=== PATIENT | female | born 1960 | race Caucasian/White ===

== ENCOUNTER 2019-12-02 07:26 | Outpatient (CLI) | payer OTHER, SELFPAY ==
[2019-12-02 07:46] LABS: Hematocrit 38.5 % (37.0-47.0); Hemoglobin 12.4 g/dL (12.0-15.0); Mean Corpuscular HGB Conc 32.2 g/dl (32-36); Mean Corpuscular Hemoglobin 29.5 pg (26-34); Mean Corpuscular Volume 91.4 fl (80-100); Mean Platelet Volume 8.9 fl (7.4-10.4); Platelet Count Result 362 k/mm3 (150-375); Red Blood Count 4.21 M/mm3 (4.2-5.4); White Blood Count 8.2 K/mm3 (4.5-10.0)
[2019-12-02 07:59] LABS: Alanine Aminotransferase 26 U/L (4-35); Albumin Level 4.3 g/dL (3.5-5.1); Alkaline Phosphatase 93 U/L (38-126); Aspartate Amino Transferase 27 U/L (14-36); Bilirubin,Total 0.3 mg/dL (0.2-1.3); Blood Urea Nitrogen 32 mg/dL (7-17); Calcium 9.2 mg/dL (8.4-10.2); Carbon Dioxide 28 mmol/L (22-30); Chloride 102 mmol/L (98-107); Cholesterol 244 mg/dL (0-200); Estimated Glomerular Filt Rate > 60; Glucose 108 mg/dL (65-105); HDL Direct 35 mg/dL; Potassium 4.9 mmol/L (3.4-5.0); Sodium 139 mmol/L (137-145); Triglycerides 239 mg/dL (<150)
[2019-12-02 08:01] LABS: Rheumatoid Factor < 12.0 IU/ML (<12)
[2019-12-02 08:10] LABS: LDL Cholesterol Direct 135 mg/dL
[2019-12-02 08:27] LABS: Erythrocyte Sedimentation Rate 37 mm/hr (0-20)
== END 2019-12-02 07:27 | disposition home or self-care (01) ==
PROVIDERS: PCP Internal Medicine; Visit Provider Internal Medicine
DX: M79.10 Myalgia, unspecified site (principal); R53.83 Other fatigue; I10 Essential (primary) hypertension; E78.00 Pure hypercholesterolemia, unspecified
CPT/HCPCS: 36415; 80053; 80061; 84443; 85027; 85652; 86038; 86039; 86430

== ENCOUNTER 2020-01-28 15:03 | Outpatient (CLI) | payer OTHER, SELFPAY ==
--- NOTE | ~2020-01-28 | MM_ITS ---
EXAMINATION: MM screening chele BI w alayna HISTORY: Screening mammogram TECHNIQUE: Craniocaudal and mediolateral oblique 3-D tomosynthesis images were obtained and synthetic 2-D images were generated. CAD analysis was submitted and interpreted. COMPARISON: 11/22/2018, 10/30/2017, 09/08/2016 bilateral digital screening mammogram examinations BREAST PARENCHYMAL COMPOSITION: There are scattered areas of fibroglandular density. FINDINGS: There are numerous bilateral punctate benign calcifications. There is no evidence of suspic ious mass, calcification, or architectural distortion to suggest malignancy in either breast. There h as been no suspicious interval change. IMPRESSION: 1. No mammographic evidence of malignancy. 2. Recommend routine screening mammography in one year. BI-RADS Category 2: Benign finding(s) Reviewed, dictated and finalized at location A.
== END 2020-01-28 15:04 | disposition home or self-care (01) ==
LOC: ANHIMG 15:05
PROVIDERS: PCP Internal Medicine; Visit Provider Obstetrics & Gynecology
DX: Z12.31 Encounter for screening mammogram for malignant neoplasm of breast (principal)
CPT/HCPCS: 77063; 77067

== ENCOUNTER 2020-02-12 07:06 | Outpatient (CLI) | payer OTHER, SELFPAY ==
[2020-02-12 07:47] LABS: Basophils Absolute Auto 0.1 K/mm3 (0.0-0.1); Basophils Percent Auto 0.8 % (0.2-1.2); Eosinophils Absolute Auto 0.2 K/mm3 (0-0.3); Eosinophils Percent Auto 2.7 % (0-4.4); Hematocrit 38.2 % (37.0-47.0); Hemoglobin 12.4 g/dL (12.0-15.0); Immature Granulocyte Absolute 0.02 K/mm3 (0.00-0.031); Immature Granulocyte Percent A 0.2 % (0-0.5); Lymphocytes Absolute Auto 2.66 K/mm3 (0.9-3.2); Lymphocytes Percent Auto 30.5 % (18.3-44.2); Mean Corpuscular HGB Conc 32.5 g/dl (32-36); Mean Corpuscular Hemoglobin 30.2 pg (26-34); Mean Corpuscular Volume 92.9 fl (80-100); Mean Platelet Volume 9.3 fl (7.4-10.4); Monocytes Absolute Auto 0.7 K/mm3 (0.1-0.6); Monocytes Percent Auto 8.1 % (2.6-8.5); Neutrophils Percent Auto 57.7 % (45.5-73.1); Platelet Count Result 398 k/mm3 (150-375); Red Blood Count 4.11 M/mm3 (4.2-5.4); Red Cell Distribution Width 13.9 % (11.5-14.5); White Blood Count 8.7 K/mm3 (4.5-10.0)
[2020-02-12 07:59] LABS: Alanine Aminotransferase 34 U/L (4-35); Albumin Level 4.5 g/dL (3.5-5.1); Alkaline Phosphatase 77 U/L (38-126); Anion Gap 11 mmol/L (8-16); Aspartate Amino Transferase 30 U/L (14-36); Bilirubin,Total 0.3 mg/dL (0.2-1.3); Blood Urea Nitrogen 23 mg/dL (7-17); Calcium 9.5 mg/dL (8.4-10.2); Carbon Dioxide 27 mmol/L (22-30); Chloride 103 mmol/L (98-107); Cholesterol 224 mg/dL (0-200); Estimated Glomerular Filt Rate > 60; Glucose 106 mg/dL (65-105); HDL Direct 33 mg/dL; Potassium 4.7 mmol/L (3.4-5.0); Sodium 141 mmol/L (137-145); Triglycerides 236 mg/dL (<150)
[2020-02-12 08:10] LABS: LDL Cholesterol Direct 121 mg/dL
== END 2020-02-12 07:07 | disposition home or self-care (01) ==
PROVIDERS: PCP Internal Medicine; Visit Provider Internal Medicine
DX: R53.83 Other fatigue (principal); I10 Essential (primary) hypertension; E78.00 Pure hypercholesterolemia, unspecified
CPT/HCPCS: 36415; 80053; 80061; 84443; 85025

== ENCOUNTER → 2020-08-27 01:30 | Outpatient (CLI) | payer OTHER, SELFPAY ==
[2020-08-27 19:39] LABS: SARS-CoV-2 RNA PCR Negative
== END ==
PROVIDERS: PCP Internal Medicine; Visit Provider Internal Medicine Gastroenterology
DX: Z01.812 Encounter for preprocedural laboratory examination (principal); Z20.822 Contact with and (suspected) exposure to COVID-19
CPT/HCPCS: C9803; U0003; U0005

== ENCOUNTER 2020-08-30 01:03 | Day surgery (SDC) | payer OTHER, SELFPAY ==
[2020-08-17 13:56] VITALS: BMI 34.7
[2020-08-30] MEDS: LACTATED RINGERS 1,000 ML 150 ML IV CONT (06:35)
[2020-08-30 06:38] VITALS: BP 149/78; PULSE 73; RESP 18; TEMP 36.2; O2SAT 99; BMI 35.0
--- NOTE | 2020-08-30 07:15 | P.PNAN_ITS ---
Anes - Initial Pre Proc Eval Procedure: Operation Date: 08/30/20 07:30 Proposed Procedures p Screening Colonoscopy - Andrea Fraga MD Date/Time: 08/30/20 07:15 Surgeon: Andrea Fraga MD Pre Op Diagnosis: Hx Of Colon Polyps, Screening Patient Data Age: 60 Gender: F Height: 5 ft 2 in Weight: 86.9 kg Last Vital Signs Temp 97.2 F L 08/30/20 06:38 Pulse 73 08/30/20 06:38 Resp 18 08/30/20 06:38 BP 149/78 H 08/30/20 06:38 Pulse Ox 99 08/30/20 06:38 Allergies Allergy/AdvReac Type Severity Reaction Status Date / Time Sulfa (Sulfonamide Allergy Mild Hives Verified 08/30/20 06:36 Antibiotics) Home Medications Medication Instructions Recorded Confirmed Type aspirin 81 mg tablet,delayed 81 mg PO DAILY 04/21/19 08/30/20 History release multivitamin 1 tablet PO DAILY 04/21/19 08/30/20 History atenolol 100 mg tablet 100 mg PO DAILY #90 tablet 02/08/20 08/30/20 Rx lisinopril 40 mg tablet 40 mg PO DAILY #90 tablet 05/02/20 08/30/20 Rx amlodipine 5 mg tablet 5 mg PO DAILY #90 tablet 06/23/20 08/30/20 Rx montelukast 10 mg tablet 10 mg PO DAILY #90 tablet 06/23/20 08/30/20 Rx sodium,potassium,mag sulfates 17.5 See Rx Instructions PO .COMPLEX 07/02/20 0 08/30/20 Rx gram-3.13 gram-1.6 gram oral soln #354 ml diclofenac sodium 75 mg 75 mg PO BID #180 tablet 07/29/20 08/30/20 Rx tablet,delayed release loratadine [Allergy Relief 10 mg PO DAILY 08/17/20 08/30/20 History (loratadine)] Patient hx anesthesia problems: none Family hx anesthesia problems: none PMFSH Past Medical History Medical History (Updated 08/30/20 @ 07:14 by Khoi De Dios MD) Essential (primary) hypertension Hypercholesterolemia Family History Family History Mother Patient's mother is Father Patient's father is Other Diabetes mellitus Family history of cardiovascular disease Hypertension Social History Social History Smoking packs per day: 1 Smoking cigarettes per day: 20.0 Years smoked: 20 Smoking pack-years: 20.00 Smoking status: Former smoker Tobacco type: cigarettes Second hand tobacco smoke exposure: No Smoking end date: 05/14/06 Alcohol intake: current Substance use type: does not use Living arrangements: with family Gender identity (if verbalized by the patient): Female Spiritual care concerns: No Anes - Eval Final PreProcedure Day of Procedure 08/30/20 07:15 Patient weight: obese Heart: regular rate and rhythm Lungs: clear to auscultation Airway: Mallampati scale class II Neurological: alert and oriented Last oral intake: >/= 8 hours ASA classification: III Emergent: no Anesthetic plan: proceed Anesthesia type and monitoring: general GIVS and standard monitoring Informed Consent: The patient's anesthetic plan and its attendant risks and benefits were discussed with the patient/family/POA. Questions were solicited and answers provided to the satisfaction of the patient/family/POA.
--- NOTE | 2020-08-30 07:34 | PM.HPGS ---
History of Present Illness History of Present Illness Consent: Risks, benefits, and alternatives have been discussed and questions answered. Patient agrees to proceed with procedure. Chief complaint: Hx Of Colon Polyps, Screening Narrative: Olga Elias is a 60 year old female with colon polyps in 2016 Review of Systems Constitutional: Constitutional: Denies headache(s) and Denies weakness Eyes: Eyes: Denies blurry vision ENT: Reports Normal hearing present, Denies headache(s) and Denies neck pain Cardiovascular: Cardiovascular: Denies chest pain and Denies dyspnea Respiratory: Respiratory: Denies dyspnea Gastrointestinal: Gastrointestinal: Reports no additional gastrointestinal complaints Genitourinary: Genitourinary: Denies dysuria Musculoskeletal: Musculoskeletal: Denies neck pain Integumentary/Breasts: Skin/Breast: Denies dry skin Neurologic: Reports Normal hearing present, Denies headache(s) and Denies weakness Psychiatric: Psychiatric: Denies anxiety Endocrine: Endocrine: Denies change in body appearance Hematologic/Lymphatic: Hematologic/Lymphatic: Denies easy bleeding Allergic/Immunologic: Allergic/Immunologic: Denies urticaria PMFSH Past Medical History Medical History (Updated 08/30/20 @ 07:34 by Andrea Fraga MD) Adenomatous colon polyp Essential (primary) hypertension Hypercholesterolemia Family History Family History Mother Patient's mother is Father Patient's father is Other Diabetes mellitus Family history of cardiovascular disease Hypertension Social History Social History Smoking packs per day: 1 Smoking cigarettes per day: 20.0 Years smoked: 20 Smoking pack-years: 20.00 Smoking status: Former smoker Tobacco type: cigarettes Second hand tobacco smoke exposure: No Smoking end date: 05/14/06 Alcohol intake: current Substance use type: does not use Living arrangements: with family Gender identity (if verbalized by the patient): Female Spiritual care concerns: No Meds Home Medications and Allergies Home Medications Medication Instructions Recorded Confirmed Type aspirin 81 mg tablet,delayed 81 mg PO DAILY 04/21/19 08/30/20 History release multivitamin 1 tablet PO DAILY 04/21/19 08/30/20 History atenolol 100 mg tablet 100 mg PO DAILY #90 tablet 02/08/20 08/30/20 Rx lisinopril 40 mg tablet 40 mg PO DAILY #90 tablet 05/02/20 08/30/20 Rx amlodipine 5 mg tablet 5 mg PO DAILY #90 tablet 06/23/20 08/30/20 Rx montelukast 10 mg tablet 10 mg PO DAILY #90 tablet 06/23/20 08/30/20 Rx sodium,potassium,mag sulfates 17.5 See Rx Instructions PO .COMPLEX 07/02/20 08/30/20 Rx gram-3.13 gram-1.6 gram oral soln #354 ml diclofenac sodium 75 mg 75 mg PO BID #180 tablet 07/29/20 08/30/20 Rx tablet,delayed release loratadine [Allergy Relief 10 mg PO DAILY 08/17/20 08/30/20 History (loratadine)] Allergies Allergy/AdvReac Type Severity Reaction Status Date / Time Sulfa (Sulfonamide Allergy Mild Hives Verified 08/30/20 06:36 Antibiotics) Vital Signs Vital Signs - 24 hr 08/30/20 06:38 Temperature 97.2 F L Pulse Rate 73 Respiratory Rate 18 Blood Pressure 149/78 H Pulse Oximetry 99 Exam Const: General: comfortable and no acute distress HENMT: General nose exam: Normal nares present Eyes: General: appearance normal, both eyes and all related structures Neck: Neck: no JVD Resp: Auscultation: clear to auscultation bilaterally Cardio: Rate: regular rate Rhythm: regular rhythm GI: Inspection: non-distended GI Palp: Yes Soft to palpation Skin: General skin exam: normal color Neuro: General: gait normal Speech: normal speech Extrem: General: normal to inspection Psych: Mental Status: mental status grossly normal Assessment and Plan Assessmen
[2020-08-30 07:47] VITALS: BP 117/64; PULSE 69; RESP 15; O2SAT 95
[2020-08-30 07:57] VITALS: BP 122/71; PULSE 62; RESP 19; O2SAT 99
[2020-08-30 08:07] VITALS: BP 141/78; PULSE 60; RESP 16; O2SAT 100
== END 2020-08-30 08:16 | disposition home or self-care (01) ==
PROVIDERS: PCP Internal Medicine; Visit Provider Internal Medicine Gastroenterology
PROC: 0DJD8ZZ Inspection of Lower Intestinal Tract, Via Natural or Artificial Opening Endoscopic (ICD-10-PCS; CPT 45378; principal; 2020-08-30 07:30)
DX: Z12.11 Encounter for screening for malignant neoplasm of colon (principal); K57.30 Diverticulosis of large intestine without perforation or abscess without bleeding; K64.8 Other hemorrhoids; Z86.010 Personal history of colon polyps; I10 Essential (primary) hypertension; E78.00 Pure hypercholesterolemia, unspecified; Z79.82 Long term (current) use of aspirin; Z87.891 Personal history of nicotine dependence; E66.9 Obesity, unspecified; Z68.35 Body mass index [BMI] 35.0-35.9, adult
CPT/HCPCS: 45380; 88305; J2704; J7120

== ENCOUNTER 2021-01-05 06:57 | Outpatient (CLI) | payer OTHER, SELFPAY ==
[2021-01-05 07:39] LABS: Basophils Absolute Auto 0.1 K/mm3 (0.0-0.1); Eosinophils Absolute Auto 0.3 K/mm3 (0-0.3); Eosinophils Percent Auto 3.2 % (0-4.4); Hemoglobin 12.6 g/dL (12.0-15.0); Immature Granulocyte Absolute 0.03 K/mm3 (0.00-0.031); Immature Granulocyte Percent A 0.3 % (0-0.5); Lymphocytes Absolute Auto 2.61 K/mm3 (0.9-3.2); Lymphocytes Percent Auto 29.8 % (18.3-44.2); Mean Corpuscular HGB Conc 31.5 g/dl (32-36); Mean Corpuscular Hemoglobin 30.1 pg (26-34); Mean Corpuscular Volume 95.7 fl (80-100); Mean Platelet Volume 8.9 fl (7.4-10.4); Monocytes Absolute Auto 0.7 K/mm3 (0.1-0.6); Monocytes Percent Auto 7.9 % (2.6-8.5); Neutrophils Absolute Auto 5.1 K/mm3 (1.3-6.7); Neutrophils Percent Auto 57.8 % (45.5-73.1); Platelet Count Result 384 k/mm3 (150-375); Red Blood Count 4.18 M/mm3 (4.2-5.4); Red Cell Distribution Width 14.1 % (11.5-14.5); White Blood Count 8.8 K/mm3 (4.5-10.0)
[2021-01-05 07:49] LABS: Alanine Aminotransferase 59 U/L (4-35); Albumin Level 4.4 g/dL (3.5-5.1); Alkaline Phosphatase 74 U/L (38-126); Anion Gap 6 mmol/L (8-16); Aspartate Amino Transferase 36 U/L (14-36); Bilirubin,Total 0.5 mg/dL (0.2-1.3); Blood Urea Nitrogen 26 mg/dL (7-17); Calcium 9.6 mg/dL (8.4-10.2); Carbon Dioxide 31 mmol/L (22-30); Chloride 103 mmol/L (98-107); Cholesterol 254 mg/dL (0-200); Estimated Glomerular Filt Rate > 60; Glucose 114 mg/dL (65-110); HDL Direct 35 mg/dL; Potassium 5.2 mmol/L (3.4-5.0); Sodium 140 mmol/L (137-145); Triglycerides 302 mg/dL (<150)
[2021-01-05 08:00] LABS: LDL Cholesterol Direct 111 mg/dL
[2021-01-05 09:11] LABS: Folic Acid > 20.0 ng/mL (2.76->20)
[2021-01-05 09:23] LABS: Hemoglobin A1C 5.8 % (<5.7)
== END 2021-01-05 06:58 | disposition home or self-care (01) ==
PROVIDERS: PCP Internal Medicine; Visit Provider Internal Medicine
DX: R53.83 Other fatigue (principal); I10 Essential (primary) hypertension; R73.9 Hyperglycemia, unspecified; E78.00 Pure hypercholesterolemia, unspecified
CPT/HCPCS: 36415; 80053; 80061; 82607; 82746; 83036; 83735; 84443; 85025

== ENCOUNTER 2021-06-15 09:51 | Outpatient (CLI) | payer OTHER, SELFPAY ==
--- NOTE | ~2021-06-15 | MR_ITS ---
EXAMINATION: MR shoulder LT wo con DATE: 06/15/2021 11:18 INDICATION: Left shoulder pain and weakness TECHNIQUE: Magnetic resonance imaging (MRI) of the left shoulder was performed without intravenous co ntrast. Sequences included axial PD-weighted FS FSE, coronal oblique PD-weighted FS FSE, coronal obli que T2-weighted FS FSE, sagittal PD-weighted FS FSE, and sagittal T1-weighted SE. COMPARISON: None. FINDINGS: Coracoacromial arch: The acromion undersurface is curved in morphology (type II). The coracoacromial ligament is normal. M ild to moderate acromioclavicular osteoarthritis with small inferiorly directed osteophytes which exe rts mass effect upon the myotendinous junction of the underlying supraspinatus. Rotator cuff: Mild supraspinatus tendinopathy with small full thickness versus near full-thickness bursal sided tea r located 4 mm medial to the superior facet footplate and measuring 7 mm AP. There does appear to a t iny focus involving the articular side of the tendon. No retraction. Mild infraspinatus and subscapul earle tendinopathy without discrete tear. The teres minor tendon is normal. Normal rotator cuff muscle bulk and signal. Biceps tendon, glenoid labrum and glenohumeral cartilage: There is a tear and distal retraction of the long head biceps tendon. Thickening and mild increased s ignal consistent with tendinopathy of the remaining attached intra-articular portion of the long head biceps tendon is folded anteriorly from its glenoid attachment underlying the superior glenohumeral ligament at the rotator cuff interval. There is a small accessory head of the long head biceps tendon which appears to remain intact and contiguous with the anterior supraspinatus tendon. Amorphous incr eased intrasubstance signal consistent with degenerative tearing of the superior to posterior superio r glenoid labrum. Glenohumeral cartilage is normal. Fluid: Physiologic amount of fluid in the glenohumeral joint and biceps tendon sheath. No loose osteochondra l bodies. Small amount of fluid in the subacromial/subdeltoid bursa consistent which could be due to mild bursitis or communication of minimal joint fluid through a likely full-thickness component of th e supraspinatus tendon tear. Bones: Normal marrow signal with no edema, fracture or abnormal marrow replacing process. IMPRESSION: 1. Small full-thickness versus high-grade partial thickness bursal sided tear of the distal supraspin atus tendon. 2. Complete tear of the long head biceps tendon with small portion of the tendon remaining attached t o the glenoid anchor and folded into the rotator cuff interval. 3. Degenerative tearing of the superior to posterior superior glenoid labrum. 4. Mild to moderate acromioclavicular osteoarthritis. Reviewed, dictated and finalized at location A. TION COORDINATOR IMPRESSION: 1. Small full-thickness versus high-grade partial thickness bursal sided tear o f the distal supraspinatus tendon. 2. Complete tear of the long head biceps tendon with small portion of the tendo n remaining attached to the glenoid anchor and folded into the rotator cuff int erval. 3. Degenerative tearing of the superior to posterior superior glenoid labrum. 4. Mild to moderate acromioclavicular osteoarthritis.
--- NOTE | ~2021-06-15 | MR_ITS ---
EXAMINATION: MR cervical spine wo con DATE: 06/15/2021 11:18 INDICATION: Left neck and shoulder pain. Weakness, numbness, and tingling of the arm and hand. TECHNIQUE: Magnetic resonance imaging (MRI) of the cervical spine was performed without intravenous c ontrast. Sequences included sagittal T2-weighted FSE, sagittal T2-weighted FS FSE, sagittal T1-weight ed FSE, axial MERGE, and axial T2-weighted FSE. COMPARISON: None FINDINGS: There is 3 mm dextrocurvature of cervical spine. There is 3 mm anterolisthesis of C4 on C5 and 2 mm retrolisthesis of C5 on C6 and C6 on C7. Vertebral body heights are normal. There is mildly decreased disc height at C3-C4, moderately decreased disc height at C4-C5 and C5-C6, and severely dec reased disc height at C6-C7. The spinal cord signal intensity is normal. The following disc levels ar e specifically discussed: C2-C3: The disc does not extend beyond the endplate margin. There is no uncovertebral joint osteoarth ritis. There is severe right and mild left facet joint osteoarthritis. There is mild right neural for aminal stenosis. There is no central canal stenosis. C3-C4: There is a right central extrusion. There is mild bilateral uncovertebral joint osteoarthritis . There is severe right and mild left facet joint osteoarthritis. There is moderate right and mild le ft neural foraminal stenosis. There is mild central canal stenosis with ventral indentation of the sp inal cord. C4-C5: The disc is bulging. There is moderate right and severe left uncovertebral joint osteoarthriti s. There is severe bilateral facet joint osteoarthritis. There is mild right and moderate left neural foraminal stenosis. There is mild central canal stenosis with ventral indentation of the spinal cord . C5-C6: The disc is bulging. There is severe bilateral uncovertebral joint osteoarthritis. There is mi ld bilateral facet joint osteoarthritis. There is moderate right and mild left neural foraminal steno sis. There is mild central canal stenosis with ventral indentation of the spinal cord. C6-C7: The disc is bulging. There is severe bilateral uncovertebral joint osteoarthritis. There is mi ld right and moderate left facet joint osteoarthritis. There is mild bilateral neural foraminal steno sis. There is mild central canal stenosis. C7-T1: There is a central protrusion. There is no uncovertebral joint osteoarthritis. There is severe bilateral facet joint osteoarthritis. There is mild bilateral neural foraminal stenosis. There is no central canal stenosis. IMPRESSION: 1. Severe cervical spondylosis. Reviewed, dictated and finalized at location E. ORATE PLANNER
== END 2021-06-15 09:52 | disposition home or self-care (01) ==
LOC: ANHIMG 09:53
PROVIDERS: PCP Internal Medicine; Visit Provider Orthopaedic Surgery
DX: M25.512 Pain in left shoulder (principal); R20.0 Anesthesia of skin; S46.112A Strain of muscle, fascia and tendon of long head of biceps, left arm, initial encounter; S43.432A Superior glenoid labrum lesion of left shoulder, initial encounter; M19.012 Primary osteoarthritis, left shoulder; M47.812 Spondylosis without myelopathy or radiculopathy, cervical region
CPT/HCPCS: 72141; 73221

== ENCOUNTER 2021-07-19 07:10 | Outpatient (CLI) | payer OTHER, SELFPAY ==
[2021-07-19 08:28] LABS: Basophils Absolute Auto 0.1 K/mm3 (0.0-0.1); Basophils Percent Auto 0.8 % (0.2-1.2); Eosinophils Absolute Auto 0.2 K/mm3 (0-0.3); Eosinophils Percent Auto 2.2 % (0-4.4); Hematocrit 40.1 % (37.0-47.0); Hemoglobin 12.7 g/dL (12.0-15.0); Immature Granulocyte Absolute 0.02 K/mm3 (0.00-0.031); Immature Granulocyte Percent A 0.2 % (0-0.5); Lymphocytes Absolute Auto 2.35 K/mm3 (0.9-3.2); Lymphocytes Percent Auto 28.2 % (18.3-44.2); Mean Corpuscular HGB Conc 31.7 g/dl (32-36); Mean Corpuscular Volume 94.6 fl (80-100); Mean Platelet Volume 8.9 fl (7.4-10.4); Monocytes Absolute Auto 0.5 K/mm3 (0.1-0.6); Monocytes Percent Auto 5.8 % (2.6-8.5); Neutrophils Absolute Auto 5.2 K/mm3 (1.3-6.7); Neutrophils Percent Auto 62.8 % (45.5-73.1); Platelet Count Result 393 k/mm3 (150-375); Red Blood Count 4.24 M/mm3 (4.2-5.4); Red Cell Distribution Width 13.9 % (11.5-14.5); White Blood Count 8.3 K/mm3 (4.5-10.0)
[2021-07-19 08:58] LABS: Alanine Aminotransferase 34 U/L (4-35); Albumin Level 4.6 g/dL (3.5-5.1); Alkaline Phosphatase 74 U/L (38-126); Anion Gap 7 mmol/L (8-16); Aspartate Amino Transferase 29 U/L (14-36); Bilirubin,Total 0.4 mg/dL (0.2-1.3); Blood Urea Nitrogen 25 mg/dL (7-17); Calcium 9.2 mg/dL (8.4-10.2); Carbon Dioxide 29 mmol/L (22-30); Chloride 107 mmol/L (98-107); Cholesterol 229 mg/dL (0-200); Estimated Glomerular Filt Rate > 60; Glucose 100 mg/dL (65-110); HDL Direct 32 mg/dL; Potassium 4.7 mmol/L (3.4-5.0); Sodium 143 mmol/L (137-145); Triglycerides 172 mg/dL (<150)
[2021-07-19 09:11] LABS: LDL Cholesterol Direct 129 mg/dL
[2021-07-19 10:10] LABS: Folic Acid > 20.0 ng/mL (2.76->20)
[2021-07-27 05:49] LABS: Anti Nuclear Antibody Pattern Nuclear, Speckled
== END 2021-07-19 07:11 | disposition home or self-care (01) ==
PROVIDERS: PCP Internal Medicine; Visit Provider Internal Medicine
DX: R53.83 Other fatigue (principal); E78.5 Hyperlipidemia, unspecified
CPT/HCPCS: 36415; 80053; 80061; 82607; 82746; 85025; 86038; 86039

== ENCOUNTER 2021-08-08 12:30 | Outpatient (RCR) | payer OTHER, SELFPAY ==
--- NOTE | 2021-07-15 09:25 | PTOPEVAL ---
PHYSICAL THERAPY INITIAL EVALUATION Thank you for referring Olga Elias to [facility].? The patient is scheduled to be seen for therapy? 2x/week for 4 weeks. Please review, sign, date and return this plan of care LAKESHA. I agree with and certify that the following plan of care is medically necessary. Referring Physician Date Attending Provider: Kleber Stoll MD *PT Outpatient Evaluation Start: 07/15/21 Evaluation Information Subjective Information Pt reports a history of neck Query Text:As Reported By Patient/ pain for about 6 months and Family usually just in the morning, moving around in the morning and some light stretches would help this pain go away and she would be okay the rest of the day. Pt states now the pain is unbearable. Pt states she is seeing a doctor for her neck next week and is a little apprehensive about doing anything for her neck at this time. She thinks the rotator cuff tear was found on accident. She states she does remember a time about a month ago that might have caused the biceps tendon tear. She states she was pouring a pot of water and felt a pop in her arm and since then there has been increased weakness in pain. She states she can deal with the shoulder pain and the adaptations she has had to make in the last month. She is concerned with her neck foremost, she states by the end of the day she has to physical hold her head up or lay down to help relieve the pain. Pt states she has no issues with sleep. Pt reports a headache daily, by early afternoon. Pt states more than one her hand has balled up in a fist without her consciously doing it, she can open her fist without issues. She reports popping in her neck with general movements. Pain Assessment Neck Reported Pain Leve
--- NOTE | 2021-08-08 13:24 | PTOPEVAL ---
PHYSICAL THERAPY PROGRESS REPORT AND DISCHARGE REPORT. Thank you for referring Olga Elias to [facility].? The patient is to be discharged from skilled physical therapy services. Please review, sign, date and return this plan of care LAKESHA. I agree with and certify that the following plan of care is medically necessary. Referring Physician Date Attending Provider: Kleber Stoll MD Evaluation Information Diagnosis cervical stenosis with L RTC tear Onset chronic Subjective Information Pt states she feels like Query Text:As Reported By Patient/ therapy helps for a few hours Family after she leaves her treatments but is not seeing any termite exterminator effects. She reports it is now difficult to find a comfortable position to sleep in. She continues to have numbness and tingling in her L UE with obvious weakness . Pt states she sees no benefits to doing her exercises. She reports she is seeing a spinal surgeon. They did an injection and received no relief from it, she has another follow up on 08/15/21 and states he will likely want to do surgery. Self Report Pain Assessment Neck Reported Pain Level 5 Pain Description Numbness,Pinching,Radiating,Tingling Greatest Pain Intensity 8 Cervical and Lumbar ROM Cervical Flexion (0-60) 54 active Cervical Extension (0-70) 55 active Cervical Lateral Flexion Right (0-50) 54 active Cervical Lateral Flexion Right (0-50) 45 passive Cervical Lateral Flexion Left (0-50) 30 active Cervical Lateral Flexion Left (0-50) 45 passive Cervical Rotation Right (0-90) 65 active Cervical Rotation Right (0-90) 60 passive Cervical Rotation Left (0-90) 65 active Cervical Rotation Left (0-90) 60 passive Cervical ROM 75% of Normal Cervical ROM Comments End ROM limited due to pain Upper Extremity Range of Motion Scapular/ Shoulder Range of Motion Left Shoulder Flexion - Active 134 Shoulder Abduction - Active 88 Shoulder Medial Rotation - Active T5 on both L and R Shoulder Lateral Rotation - Active T5 with R, T8 with L Upper Extremity Muscle Strength Testing Gross Upper Extremity Strength Comments L Elbow flexion 4+/5 Left Shoulder Flexion Strength 4+ Good + Shoulder Abduction Strength 4- Good - Shoulder Medial Rotation Strength 4 Good Shoul
== END 2021-08-08 15:56 | disposition home or self-care (01) ==
LOC: ANHPT 12:30
PROVIDERS: PCP Internal Medicine; Visit Provider Orthopaedic Surgery
DX: M75.102 Unspecified rotator cuff tear or rupture of left shoulder, not specified as traumatic (principal); M47.812 Spondylosis without myelopathy or radiculopathy, cervical region
CPT/HCPCS: 97110; 97140; 97161; 97530

== ENCOUNTER 2021-08-16 08:29 | Outpatient (CLI) | payer OTHER, SELFPAY ==
--- NOTE | ~2021-08-16 | XR_ITS ---
EXAMINATION: XR chest 2V EXAM DATE: 08/16/2021 16:33 INDICATION: Preoperative. TECHNIQUE: Frontal and lateral projections of the chest obtained and reviewed. Comparison is made to prior examination from 04/30/2017. FINDINGS: There are cholecystectomy clips. The lungs are clear. There are no pleural effusions. Th e cardiomediastinal silhouette is within normal limits. There is no pneumothorax suspected. The bon es and soft tissues are unremarkable. IMPRESSION: Unremarkable chest x-ray exam. Reviewed, dictated and finalized at location A.
--- NOTE | 2021-08-16 09:31 | ECG_ITS ---
Measurements Intervals [place] Rate: 58 P: 31 [place]: 152 QRS: 12 QRSD: 94 T: 41 QT: 394 QTc: 390 Interpretive Statements SINUS BRADYCARDIA NO PREVIOUS ECG AVAILABLE FOR COMPARISON Electronically Signed On 08-16-2021 11:41:50 CDT by Camilo Wang M.D.
[2021-08-16 10:01] LABS: Basophils Absolute Auto 0.1 K/mm3 (0.0-0.1); Basophils Percent Auto 0.9 % (0.2-1.2); Eosinophils Absolute Auto 0.1 K/mm3 (0-0.3); Eosinophils Percent Auto 1.4 % (0-4.4); Hemoglobin 13.2 g/dL (12.0-15.0); Immature Granulocyte Absolute 0.02 K/mm3 (0.00-0.031); Immature Granulocyte Percent A 0.2 % (0-0.5); Lymphocytes Absolute Auto 2.54 K/mm3 (0.9-3.2); Lymphocytes Percent Auto 27.2 % (18.3-44.2); Mean Corpuscular HGB Conc 32.2 g/dl (32-36); Mean Corpuscular Hemoglobin 29.9 pg (26-34); Mean Corpuscular Volume 92.8 fl (80-100); Mean Platelet Volume 8.9 fl (7.4-10.4); Monocytes Absolute Auto 0.6 K/mm3 (0.1-0.6); Monocytes Percent Auto 6.1 % (2.6-8.5); Neutrophils Percent Auto 64.2 % (45.5-73.1); Platelet Count Result 408 k/mm3 (150-375); Red Blood Count 4.42 M/mm3 (4.2-5.4); Red Cell Distribution Width 13.6 % (11.5-14.5); White Blood Count 9.3 K/mm3 (4.5-10.0)
[2021-08-16 10:05] LABS: INR 0.9; Prothrombin Time 12.2 Seconds (11.1-14.7)
[2021-08-16 10:06] LABS: Alanine Aminotransferase 32 U/L (4-35); Albumin Level 4.8 g/dL (3.5-5.1); Alkaline Phosphatase 81 U/L (38-126); Anion Gap 8 mmol/L (8-16); Aspartate Amino Transferase 29 U/L (14-36); Bilirubin,Total 0.4 mg/dL (0.2-1.3); Blood Urea Nitrogen 34 mg/dL (7-17); Calcium 9.5 mg/dL (8.4-10.2); Carbon Dioxide 28 mmol/L (22-30); Chloride 103 mmol/L (98-107); Estimated Glomerular Filt Rate 51; Glucose 107 mg/dL (65-110); Partial Thromboplastin Time 28.1 SECONDS (22.3-36.8); Potassium 5.2 mmol/L (3.4-5.0); Sodium 139 mmol/L (137-145)
== END 2021-08-16 08:30 | disposition home or self-care (01) ==
PROVIDERS: PCP Internal Medicine
DX: Z01.818 Encounter for other preprocedural examination (principal); R00.1 Bradycardia, unspecified
CPT/HCPCS: 36415; 71046; 80053; 85025; 85610; 85730; 93005

== ENCOUNTER → 2021-10-29 00:17 | Outpatient (CLI) | payer OTHER, SELFPAY ==
[2021-10-29 11:10] LABS: SARS-CoV-2 RNA PCR Positive
== END ==
DX: U07.1 COVID-19 (principal)
CPT/HCPCS: C9803; U0003; U0005

== ENCOUNTER 2022-01-31 07:40 | Outpatient (CLI) | payer OTHER, SELFPAY ==
[2022-01-31 08:27] LABS: Alanine Aminotransferase 31 U/L (6-35); Alanine Aminotransferase 32 U/L (6-35); Albumin Level 4.5 g/dL (3.5-5.1); Alkaline Phosphatase 74 U/L (38-126); Anion Gap 10 mmol/L (8-16); Aspartate Amino Transferase 30 U/L (14-36); Bilirubin,Total 0.3 mg/dL (0.2-1.3); Blood Urea Nitrogen 23 mg/dL (7-17); Calcium 9.3 mg/dL (8.4-10.2); Carbon Dioxide 27 mmol/L (22-30); Chloride 104 mmol/L (98-107); Estimated Glomerular Filt Rate > 60; Glucose 113 mg/dL (65-110); Potassium 4.4 mmol/L (3.4-5.0); Sodium 141 mmol/L (137-145)
[2022-01-31 08:28] LABS: Aspartate Amino Transferase 33 U/L (14-36)
[2022-01-31 09:05] LABS: Vitamin D 25 Hydroxy 68.7 ng/mL
== END 2022-01-31 07:41 | disposition home or self-care (01) ==
PROVIDERS: PCP Physician Assistant; Visit Provider Podiatrist Foot & Ankle Surgery
DX: R53.83 Other fatigue (principal); B35.1 Tinea unguium
CPT/HCPCS: 36415; 80053; 82306; 84450; 84460

== ENCOUNTER 2022-05-05 07:56 | Outpatient (CLI) | payer OTHER, SELFPAY ==
[2022-05-05 08:47] LABS: Alanine Aminotransferase 31 U/L (6-35); Aspartate Amino Transferase 29 U/L (14-36)
== END 2022-05-05 07:57 | disposition home or self-care (01) ==
LOC: ANHLAB 07:58
PROVIDERS: PCP Internal Medicine; Visit Provider Podiatrist Foot & Ankle Surgery
DX: B35.1 Tinea unguium (principal)
CPT/HCPCS: 36415; 84450; 84460

== ENCOUNTER 2022-08-15 07:20 | Outpatient (CLI) | payer OTHER, SELFPAY ==
[2022-08-15 07:50] LABS: Basophils Absolute Auto 0.1 K/mm3 (0.0-0.1); Basophils Percent Auto 0.9 % (0.2-1.2); Eosinophils Absolute Auto 0.2 K/mm3 (0-0.3); Eosinophils Percent Auto 1.8 % (0-4.4); Hematocrit 38.4 % (37.0-47.0); Hemoglobin 12.4 g/dL (12.0-15.0); Immature Granulocyte Absolute 0.03 K/mm3 (0.00-0.031); Immature Granulocyte Percent A 0.3 % (0-0.5); Lymphocytes Absolute Auto 1.87 K/mm3 (0.9-3.2); Lymphocytes Percent Auto 21.5 % (18.3-44.2); Mean Corpuscular HGB Conc 32.3 g/dl (32-36); Mean Corpuscular Hemoglobin 29.7 pg (26-34); Mean Corpuscular Volume 92.1 fl (80-100); Mean Platelet Volume 8.7 fl (7.4-10.4); Monocytes Absolute Auto 0.6 K/mm3 (0.1-0.6); Monocytes Percent Auto 7.4 % (2.6-8.5); Neutrophils Absolute Auto 5.9 K/mm3 (1.3-6.7); Neutrophils Percent Auto 68.1 % (45.5-73.1); Platelet Count Result 364 k/mm3 (150-375); Red Blood Count 4.17 M/mm3 (4.2-5.4); Red Cell Distribution Width 13.5 % (11.5-14.5); White Blood Count 8.7 K/mm3 (4.5-10.0)
[2022-08-15 08:06] LABS: Alanine Aminotransferase 31 U/L (6-35); Albumin Level 4.6 g/dL (3.5-5.1); Alkaline Phosphatase 82 U/L (38-126); Anion Gap 8 mmol/L (8-16); Aspartate Amino Transferase 30 U/L (14-36); Bilirubin,Total 0.4 mg/dL (0.2-1.3); Blood Urea Nitrogen 20 mg/dL (7-17); Calcium 9.1 mg/dL (8.4-10.2); Carbon Dioxide 27 mmol/L (22-30); Chloride 105 mmol/L (98-107); Cholesterol 237 mg/dL (0-200); Estimated Glomerular Filt Rate > 60; Glucose 107 mg/dL (65-110); HDL Direct 38 mg/dL; Magnesium 1.9 mg/dL (1.6-2.3); Potassium 4.3 mmol/L (3.4-5.0); Sodium 140 mmol/L (137-145); Triglycerides 225 mg/dL (<150)
[2022-08-15 08:07] LABS: Hemoglobin A1C 5.6 % (<5.7)
[2022-08-15 08:11] LABS: Rheumatoid Factor < 8.6 IU/ML (<12)
[2022-08-15 08:17] LABS: LDL Cholesterol Direct 129 mg/dL
[2022-08-15 08:34] LABS: Vitamin D 25 Hydroxy 84.8 ng/mL
[2022-08-15 08:49] LABS: Erythrocyte Sedimentation Rate 21 mm/hr (0-20)
[2022-08-15 09:21] LABS: Folic Acid > 20.0 ng/mL (2.76->20)
[2022-08-22 12:00] LABS: Anti Nuclear Antibody Pattern Nuclear, Speckled
== END 2022-08-15 07:21 | disposition home or self-care (01) ==
LOC: ANHLAB 07:22
PROVIDERS: PCP Internal Medicine; Visit Provider Internal Medicine
DX: M79.10 Myalgia, unspecified site (principal); I10 Essential (primary) hypertension; R53.83 Other fatigue; E78.5 Hyperlipidemia, unspecified; R73.9 Hyperglycemia, unspecified
CPT/HCPCS: 36415; 80053; 80061; 82306; 82607; 82746; 83036; 83735; 84443; 85025; 85652; 86038; 86039; 86430

== ENCOUNTER 2022-10-24 07:42 | Outpatient (CLI) | payer OTHER, SELFPAY ==
--- NOTE | 2022-10-24 | ECHO_ITS ---
Patient Info Name: Olga Elias Age: 62 years : 1960 Gender: Female Ht: 61 in Wt: 190 lbs BSA: 1.97 m2 HR: 58 bpm BP: 176 / 104 mmHg Heart Rhythm: Bradycardia, Sinus Rhythm Technical Quality: Good Exam Date: 10/24/2022 7:57 AM Exam Location: [facility] Patient Status: Outpatient Admit Date: 10/24/2022 Staff Ordering Physician: Osmel Mckeon DO It Desktop Support Specialist: Eden Kessler RDCS Attending Provider: Osmel Mckeon DO Referring Physician: Linda BOWERS; Exam Type: CA echo doppler color flow Study Info Indications I10 - Essential (primary) hypertension Complete two-dimensional, color flow and Doppler transthoracic echocardiogram is performed. Strain analysis performed. Summary 1. Complete two-dimensional, color flow and Doppler transthoracic echocardiogram is performed. 2. Left ventricular chamber dimension is normal. 3. Left ventricular systolic function is normal, estimated at 60-65%. 4. There is mildly increased left ventricular wall thickness. 5. The left ventricular diastolic function is grade I diastolic dysfunction. 6. Global longitudinal strain is normal at -20 %. 7. There is mild mitral valve regurgitation. 8. There is mild tricuspid valve regurgitation. 9. Mild pulmonary hypertension, estimated pulmonary arterial systolic pressure is 35 mmHg. 10. Dilated inferior vena cava with >50% collapse upon inspiration consistent with elevated right atrial pressure, 10 mmHg. Left Ventricle Left ventricular chamber dimension is normal. Left ventricular systolic function is normal, estimated at 60-65%. There is mildly increased left ventricular wall thickness. The left ventricular diastolic function is grade I diastolic dysfunction. Global longitudinal strain is normal at -20 %. Right Ventricle Right ventricular chamber dimension is normal. Right ventricular systolic function is normal. Left Atria Left atrial chamber dimension is normal. Right Atria Right atrial chamber dimension is normal. Aortic Valve The aortic valve is probable trileaflet. There is no aortic valve stenosis. There is trace aortic valve regurgitation. Pulmonic Valve The pulmonic valve is not well visualized. There is trace pulmonic regurgitation. Mitral Valve The mitral valve has thickened leaflets. There is mild mitral valve regurgitation. The mitral valve annulus is mildly calcified. Tricuspid Valve The tricuspid valve leaflets are normal. There is mild tricuspid valve regurgitation. Mild pulmonary hypertension, estimated pulmonary arterial systolic pressure is 35 mmHg. Pericardium/Pleural The pericardium appears normal. There is no pericardial effusion. Inferior Vena Cava Dilated inferior vena cava with >50% collapse upon inspiration consistent with elevated right atrial pressure, 10 mmHg. Aorta The aortic root size at the sinus of Valsalva is normal. Left Ventricular Outflow Tract Name Value Normal LVOT 2D LVOT Diameter 2.0 cm LVOT Doppler LVOT Peak Gradient 3 mmHg LVOT Mean Gradient 2 mmHg LVOT VTI 20 cm LVOT VTI/AV VTI Ratio 0.[address]
== END 2022-10-24 07:43 | disposition home or self-care (01) ==
PROVIDERS: PCP Internal Medicine; Visit Provider Internal Medicine
DX: I10 Essential (primary) hypertension (principal); M25.473 Effusion, unspecified ankle; I27.20 Pulmonary hypertension, unspecified; R93.1 Abnormal findings on diagnostic imaging of heart and coronary circulation
CPT/HCPCS: 93306

== ENCOUNTER 2022-11-13 10:05 | Outpatient (CLI) | payer OTHER, SELFPAY ==
[2022-11-13 10:31] LABS: Alanine Aminotransferase 34 U/L (6-35); Aspartate Amino Transferase 37 U/L (14-36)
== END 2022-11-13 10:06 | disposition home or self-care (01) ==
PROVIDERS: PCP Internal Medicine; Visit Provider Podiatrist Foot & Ankle Surgery
DX: B35.1 Tinea unguium (principal)
CPT/HCPCS: 36415; 84450; 84460

== ENCOUNTER 2023-05-16 09:17 | Emergency (ER) | payer OTHER, SELFPAY ==
--- NOTE | ~2023-05-16 | XR_ITS ---
Portable chest x-ray Comparison: 08/16/2021 Clinical History: Cough Findings: Lungs are clear, without focal consolidation or pleural effusion. Cardiomediastinal silho uette is stable. Bones and soft tissues are unremarkable, aside from cervical fixation hardware. Impression: Clear lungs. Reviewed, dictated and finalized at location . NISTRATIVE MANAGER Impression: Clear lungs.
[2023-05-16 09:31] VITALS: BP 177/98; PULSE 78; RESP 18; TEMP 36.8; O2SAT 95
[2023-05-16 10:15] LABS: Strep Group A RT-PCR NOT DETECTED (Negative)
[2023-05-16 10:25] LABS: Influenza A QL RT-PCR Negative (Negative); Influenza B QL RT-PCR Negative (Negative); RSV RNA, RT-PCR Negative (Negative); SARS-CoV-2 RNA PCR Negative (Negative)
--- NOTE | 2023-05-16 10:55 | PC.NURSE ---
Pt placed in gown for xray
--- NOTE | 2023-05-16 11:30 | ED.GENADULT ---
HPI - General Adult General Chief complaint: Upper Respiratory Infection Stated complaint: Cough, sore throat, x 7 days Time Seen by Provider: 05/16/23 09:56 Source: patient Mode of arrival: ambulatory Limitations: no limitations History of Present Illness HPI narrative: This is a 62-year-old female who presents to the ED with chief complaint of URI symptoms for the past week. Reports started with a sore throat and progressed to mild headache, cough, bilateral eye drainage. Reports the drainage has mostly been clear but she wakes up in the mornings with crusted discharge. Reports that the cough has progressed to a productive cough with yellow/ green sputum. Home COVID test negative. Denies fevers, chills, chest pain, shortness of breath, neck pain, abdominal pain, nausea, vomiting. Related Data Home Medications Medication Instructions Recorded Confirmed aspirin 81 mg tablet,delayed 81 mg PO DAILY 04/21/19 11/22/22 release (Adult Low Dose Aspirin) multivitamin (Multiple Vitamins 1 tablet PO DAILY 04/21/19 11/22/22 tablet) ibuprofen 800 mg tablet 800 mg PO TID 10/04/22 11/22/22 terbinafine HCl 250 mg tablet 250 mg PO DAILY 10/04/22 11/22/22 loratadine 10 mg tablet (Allergy 10 mg PO DAILY 11/22/22 11/22/22 Relief (loratadine)) Allergies Allergy/AdvReac Type Severity Reaction Status Date / Time Sulfa (Sulfonamide Allergy Mild Hives Verified 05/16/23 09:18 Antibiotics) Review of Systems Review of Systems: All systems as dictated in [facility] Past Medical History Medical History Adenomatous colon polyp Essential (primary) hypertension Hypercholesterolemia Family History Family History Mother Patient's mother is Father Patient's father is Other Diabetes mellitus Family history of cardiovascular disease Hypertension Social History Social History Smoking packs per day: 1 Smoking cigarettes per day: 20.0 Years smoked: 20 Smoking pack-years: 20.00 Smoking status: Former smoker Tobacco type: cigarettes Second hand tobacco smoke exposure: No Smoking end date: 05/14/06 Alcohol intake: current Substance use type: does not use Lack of Transportation: No Lack of Food: Never True Current Housing: I Have Housing Concerned About Future Housing: No Difficulty Paying Gas/Electric Bills: No Difficulty Paying for Meds: No Currently Unemployed: No Education: Associate Degree Difficulty w/ Childcare or Family Care: No Living arrangements: with family Gender identity (if verbalized by the patient): Female Spiritual care concerns: No Exam Narrative: GENERAL: Well-appearing, well-nourished, and in no acute distress. HEAD: Normocephalic, atraumatic. EYES: PERRLA and EOMI. clear drainage from the eyes. ENT: Mild posterior oropharynx erythema present. No exudates. Floor of the mouth intact. No trismus or drooling. Bilateral tympanic membrane effusion without erythema. Nares clear, no rhinorrhea or epistaxis. Mucous membranes moist. NECK: Supple. No adenopathy or masses. CHEST: No respiratory distress. Clear to auscultation. No wheezes rales or rhonchi HEART: Regular rate and rhythm. No murmur heard. Normal peripheral pulses. ABDOMEN: Soft, nontender, nondistended, normal active bowel sounds. MSK: Normal range of motion. No edema. SKIN: Warm, dry, no rash. NEURO: Alert and oriented x4. No focal deficits. PSYCH: Normal mood and affect. Course Vital Signs Vital signs: Vital Signs Temperature 98.3 F 05/16/23 09:31 Pulse Rate 78 05/16/23 09:31 Respiratory Rate 18 05/16/23 09:31 Blood Pressure 177/98 H 05/16/23 09:31 Pulse Oximetry 95 05/16/23 09:31 Oxygen Delivery Room Air 05/16/23 09:31 Temperature 98.3 F
[2023-05-16 12:16] VITALS: BP 180/97; PULSE 60; RESP 17; O2SAT 99
== END 2023-05-16 12:17 | disposition home or self-care (01) ==
PROVIDERS: Emergency Provider Physician Assistant; PCP Internal Medicine
DX: R05.9 Cough, unspecified (principal); Z20.822 Contact with and (suspected) exposure to COVID-19; I10 Essential (primary) hypertension; E78.00 Pure hypercholesterolemia, unspecified; Z86.010 Personal history of colon polyps; Z87.891 Personal history of nicotine dependence; Z79.82 Long term (current) use of aspirin
CPT/HCPCS: 71045; 87637; 87651; 99283

== ENCOUNTER 2024-02-18 09:03 | Outpatient (CLI) | payer OTHER, SELFPAY ==
[2024-02-18 10:25] LABS: Alanine Aminotransferase 30 U/L (6-35); Albumin Level 4.2 g/dL (3.5-5.1); Alkaline Phosphatase 79 U/L (38-126); Anion Gap 9 mmol/L (4-12); Aspartate Amino Transferase 29 U/L (14-36); Bilirubin,Total 0.4 mg/dL (0.2-1.3); Blood Urea Nitrogen 22 mg/dL (7-17); Calcium 8.8 mg/dL (8.4-10.2); Carbon Dioxide 26 mmol/L (22-30); Chloride 105 mmol/L (98-107); Cholesterol 228 mg/dL (0-200); Estimated Glomerular Filt Rate > 60; Glucose 108 mg/dL (65-110); HDL Direct 36 mg/dL; Potassium 4.1 mmol/L (3.4-5.0); Sodium 140 mmol/L (137-145); Triglycerides 251 mg/dL (<150)
[2024-02-18 10:36] LABS: LDL Cholesterol Direct 108 mg/dL
[2024-02-18 10:43] LABS: Vitamin D 25 Hydroxy 91.5 ng/mL
== END 2024-02-18 09:04 | disposition home or self-care (01) ==
PROVIDERS: PCP Internal Medicine; Visit Provider Internal Medicine
DX: E55.9 Vitamin D deficiency, unspecified (principal); E78.5 Hyperlipidemia, unspecified; R73.9 Hyperglycemia, unspecified; M25.471 Effusion, right ankle; M25.472 Effusion, left ankle; I10 Essential (primary) hypertension
CPT/HCPCS: 36415; 80053; 80061; 82306; 83036

== ENCOUNTER 2024-09-11 07:29 | Outpatient (CLI) | payer BC, SELFPAY ==
--- OUTSIDE RECORDS SUMMARY | 2024-09-11 07:34 | XMS_ITS | Referral Summary ---
Author Organization [facility] [address] [facility] Address [address] [place] [id number] Care Team Providers Care Esol Teacher Name Role Phone Osmel Mckeon MD Primary Care Provider [phone] Sunil GAMBLE MD, Ruperto John. [facility] [phone] Allergies Active Allergy Reactions Criticality Noted Date Comments Sulfa (Sulfonamide Antibiotics) Other (See comments) Reaction: Unknown, Medications atenolol (TENORMIN) 100 mg tablet 04/22/2019 Active lisinopril (PRINIVIL,ZESTR IL) 20 mg tablet 04/22/2019 Active oxybutynin XL (DITROPAN-XL) 10 mg 24 hr tablet 05/08/[address] (VOLTAREN) 50 mg EC tablet Take 50 mg by mouth 2 (two) times a day Active aspirin 81 mg enteric coated tablet Take 81 mg by mouth daily Active multivitamin capsule Take 1 capsule by mouth daily Active Active Problems Problem Noted Date Diagnosed Date Sjogren's syndrome without extraglandular involv ement 06/05/2019 Overview (12/29/2019): AVISE: ADELAIDA 1:160 homogeneous, SSA 17, RF IgM 12, Ps/Pt IgM 33 Hepatitis negative Uric acid 6.2 AVISE: ADELAIDA 1:160 speckled, Ro52 35, RF IgM 9.2, Ps/Pt IgM 39 US L hand/wrist: mild thickening/effusion with grade 2 PD wrist. Mild thickening of the 2nd and 3rd MCPs and PIPs. 4th compartment effusion. Assessment & Plan (12/12/2019 1:08 PM CDT): 58yoF with prior labs by PCP showed ADELAIDA 1:320, ESR 24, and negative RF. Hx of L hip and knee pain worsened with ambulation and stairs as well as R hip pain. Questionable transient gout attack of L 4th toe spontaneously resolving over 24 hrs without medication. Reports sicca symptoms which she attributed to her oxybutynin. Repeat labs 05/2019 showed AVISE: ADELIADA 1:160 homogeneous, SSA 17, RF IgM 12, Ps/Pt IgM 33. Given sicca symptoms and recent serologies more likely Sjogren's syndrome. Reviewed disease process and provided handout. Recommend conservative treatment including frequent sips of water, Biotene mouthwash, artificial tears, and use of a humidifier at home. Pt shoulder see the dentist every 3 months and maintain regular follow up with the eye doctor as well. Plan for follow up in 3 months or sooner as needed should symptoms warrant. Assessment & Plan (06/05/2019 4:42 PM BASE WAD OPERATOR ADJUSTER): 58yoF with prior labs by PCP showed ADELAIDA 1:320, ESR 24, and negative RF. Hx of L hip and knee pain worsened with ambulation and stairs as well as R hip pain. Questionable transient gout attack of L 4th toe spontaneously resolving over 24 hrs without medication. Reports sicca symptoms which she attributed to her oxybutynin. Repeat labs 05/2019 showed AVISE: ADELAIDA 1:160 homogeneous, SSA 17, RF IgM 12, Ps/Pt IgM 33. Given sicca symptoms and recent serologies more likely Sjogren's syndrome. Reviewed disease process and provided handout. Recommend conservative treatment including frequent sips of water, Biotene mouthwash, artificial tears, and use of a humidifier at home. Pt shoulder see the dentist every 3 months and maintain regular follow up with the eye doctor as well. Plan for follow up in 3 months or sooner as needed should symptoms warrant. Polyarthralgia 05/22/2019 Assessment & Plan (12/12/2019 3:46 PM CDT): Prior labs by PCP showed ADELAIDA 1:320, ESR 24, and negative RF. Hx of L hip and knee pain worsened with ambulation and stairs as well as R hip pain. Questionable transient gout attack of L 4th toe spontaneously resolving over 24 hrs without medication. Labs 05/2019 showed AVISE: ADELAIDA 1:160 homogeneous, SSA 17, RF IgM 12, Ps/Pt IgM 33. At that time, given sicca symptoms and serologies favored Sjogren's syndrome. Since then she has stopped oxybutynin and the oral dryness resolved, ocular dryness persists. Recently experience R hip and diffuse hand pain and stiffness, now resolved. Given the acute flare question possible viral etiology. She does have questionable synovitis in B wrists today and is tender at the R greater trochanter which I suspect is 2/2 greater trochanteric pain syndrome, provided handout today reviewing exercises. At this time, will recheck the AVISE and will obtain ultrasound of her L hand/wrist to assess for inflammation, pt will be called with results. Assessment & Plan (06/05/2019 4:41 PM BASE WAD OPERATOR ADJUSTER): 58yoAisha presents for evaluation due to joint pain and abnormal labs with ADELAIDA 1:320 and ESR 24. Her primary complaint at this time is L hip pain which is felt posterolaterally, worse with stairs and ambulation. Denies AM stiffness. Recent bilateral hip xray revealed mild OA. By exam she has no obvious synovitis and exhibits ttp at her R 1st CMC and overlying her L greater trochanter. Overall have a lower suspicion for an inflammatory arthropathy at present, suspect L hip pain may be 2/2 trochanteric bursitis/tendonitis, resolved since starting diclofenac. Our workup revealed findings concerning for Sjogrens, see below, but otherwise did not show evidence of other rheumatologic diagnosis. Discussed that will continue to monitor for synovitis, plan for follow up in 3 months. Assessment & Plan (05/22/2019 4:37 PM BASE WAD OPERATOR ADJUSTER): 58yoF presents for evaluation due to joint pain and abnormal labs with ADELAIDA 1:320 and ESR 24. Her primary complaint at this time is L hip pain which is felt posterolaterally, worse with stairs and ambulation. Denies AM stiffness. Otherwise notes fatigue, dry mouth (on oxybutynin), dry eyes, and possible traumatic oral ulcers. Recent bilateral hip xray revealed mild OA. By exam she has no obvious synovitis and exhibits ttp at her R 1st CMC and overlying her L greater trochanter. Overall have a lower suspicion for an inflammatory arthropathy at present, suspect L hip pain may be 2/2 trochanteric bursitis/tendonitis. She does have some symptoms concerning for possible CTD. To fully evaluate will check appropriate serologies and R hand xray with plan for follow up in 2 weeks to review results and to discuss treatment options. Hypertension 06/24/2014 Overview (08/18/2016): Hypertension Aptyalism 06/24/2014 Overview (08/18/2016): Dry mouth Swelling of hand 06/24/2014 Overview (08/18/2016): Swelling of hand Rash 06/24/2014 Overview (08/18/2016): Rash Pain of hand 06/24/2014 Overview (08/18/2016): Hand pain Social History Tobacco Use Types Packs/Day Years Used Date Smoking Tobacco: Never Assessed Comments Unknown Sex and Gender Information Value Date Recorded Sex Assigned at Not on file Legal Sex Female 2:26 AM BASE WAD OPERATOR ADJUSTER Gender Identity Not on file Sexual Orientation Not on file Last Filed Vital Signs Vital Sign Reading Time Taken Comments Blood Pressure 122/90 12/12/2019 1:18 PM CDT Pulse 61 06/05/2019 3:41 PM BASE WAD OPERATOR ADJUSTER Temperature 36.9 C (98.5 F) 12/12/2019 1:18 PM CDT Respiratory Rate - - Oxygen Saturation - - Inhaled Oxygen Concentration - - Weight 83.9 kg (185 lb) 12/12/2019 1:18 PM CDT Height 157.5 cm (5' 2 ) 12/12/2019 1:18 PM CDT Body Mass Index 33.84 12/12/2019 1:18 PM CDT Plan of Treatment Not on file Insurance [facility] H[facility]/PPO Address: [address] [place] [phone] [facility] CORE Care Teams Esol Teacher Relationship Specialty Start Date End Date Osmel Mckeon MD [address] [facility] [address] [facility] 120 [place], [place] [id number] PCP - General 06/24/14 Ruperto Barber III, MD [address] [facility] 110 [place] [address] Consulting Physician Rheumatology 05/01/19
--- OUTSIDE RECORDS SUMMARY | 2024-09-11 07:34 | XMS_ITS | Clinical Summary ---
Author Organization [facility] [address] [facility] Address [address] [place] [id number] Care Team Providers Care Cook Fry Name Role Phone Osmel Mckeon MD Primary Care Provider [phone] Sunil GAMBLE MD, [facility] [phone] Allergies Active Allergy Reactions Criticality Noted Date [...] warrant. Assessment & Plan (06/05/2019 4:42 PM SUPPLY CHAIN ANALYST): 58yoF with prior labs by PCP showed [...] results. Assessment & Plan (06/05/2019 4:41 PM SUPPLY CHAIN ANALYST): 58yoAisha presents for evaluation due to joint [...] months. Assessment & Plan (05/22/2019 4:37 PM SUPPLY CHAIN ANALYST): 58yoF presents for evaluation due to joint [...] of hand 06/24/2014 Overview (08/18/2016): Hand pain Surgical History Surgery Date Site/Laterality Comments CARPAL TUNNEL RELEASE Left Carpal tunnel release TOTAL ABDOMINAL HYSTERECTOMY W/ BILATERAL SALPINGOOPHORECTOMY Hysterectomy, total abdominal, BSO CHOLECYSTECTOMY Cholecystectomy Family History Medical History Relation Name Comments Alzheimer's disease Mother Alzheime r's disease; Hypertension Mother Hypertension; Depression Other Family history of Depression; Relation Name Status Comments Mother Other Social History Tobacco Use Types Packs/Day Years Used Date Smoking Tobacco: Never Assessed Comments Unknown Sex and Gender Information Value Date Recorded Sex Assigned at Not on file Legal Sex Female 2:26 AM SUPPLY CHAIN ANALYST Gender Identity Not on file Sexual Orientation Not on file Obstetrics History Last Filed Vital Signs Vital Sign Reading Time Taken Comments Blood Pressure 122/90 12/12/2019 1:18 PM CDT Pulse 61 06/05/2019 3:41 PM SUPPLY CHAIN ANALYST Temperature 36.9 C (98.5 F) 12/12/2019 1:18 PM CDT Respiratory Rate - - Oxygen Saturation - - Inhaled Oxygen Concentration - - Weight 83.9 kg (185 lb) 12/12/2019 1:18 PM CDT Height 157.5 cm (5' 2 ) 12/12/2019 1:18 PM CDT Body Mass Index 33.84 12/12/2019 1:18 PM CDT Plan of Treatment Not on file Insurance [facility] H[facility]/PPO Address: [address] [place] [address] [facility] CORE Care Teams Cook Fry Relationship Specialty Start Date End Date Osmel Mckeon MD [address] [place] [address] PCP - General 06/24/14 Ruperto Barber III, MD [address] [facility] 110 [place] [address] Consulting Physician Rheumatology 05/01/19
[2024-09-11 08:05] LABS: Basophils Absolute Auto 0.1 K/mm3 (0.0-0.1); Basophils Percent Auto 0.9 % (0.2-1.2); Eosinophils Absolute Auto 0.2 K/mm3 (0-0.3); Eosinophils Percent Auto 2.9 % (0-4.4); Hematocrit 37.7 % (37.0-47.0); Hemoglobin 12.1 g/dL (12.0-15.0); Immature Granulocyte Absolute 0.01 K/mm3 (0.00-0.031); Immature Granulocyte Percent A 0.1 % (0-0.5); Lymphocytes Absolute Auto 2.38 K/mm3 (0.9-3.2); Lymphocytes Percent Auto 31.6 % (18.3-44.2); Mean Corpuscular HGB Conc 32.1 g/dl (32-36); Mean Corpuscular Hemoglobin 29.3 pg (26-34); Mean Corpuscular Volume 91.3 fl (80-100); Mean Platelet Volume 8.8 fl (7.4-10.4); Monocytes Absolute Auto 0.6 K/mm3 (0.1-0.6); Monocytes Percent Auto 7.7 % (2.6-8.5); Neutrophils Absolute Auto 4.3 K/mm3 (1.3-6.7); Neutrophils Percent Auto 56.8 % (45.5-73.1); Platelet Count Result 362 k/mm3 (150-375); Red Blood Count 4.13 M/mm3 (4.2-5.4); Red Cell Distribution Width 13.9 % (11.5-14.5); White Blood Count 7.5 K/mm3 (4.5-10.0)
[2024-09-11 08:24] LABS: Alanine Aminotransferase 30 U/L (6-35); Albumin Level 4.2 g/dL (3.5-5.1); Alkaline Phosphatase 71 U/L (38-126); Anion Gap 9 mmol/L (4-12); Aspartate Amino Transferase 30 U/L (14-36); Bilirubin,Total 0.4 mg/dL (0.2-1.3); Blood Urea Nitrogen 32 mg/dL (7-17); Calcium 8.9 mg/dL (8.4-10.2); Carbon Dioxide 26 mmol/L (22-30); Chloride 104 mmol/L (98-107); Cholesterol 239 mg/dL (0-200); Estimated Glomerular Filt Rate > 60; Glucose 109 mg/dL (65-110); HDL Direct 36 mg/dL; Potassium 4.4 mmol/L (3.4-5.0); Sodium 139 mmol/L (137-145); Triglycerides 189 mg/dL (<150)
[2024-09-11 08:36] LABS: LDL Cholesterol Direct 121 mg/dL
[2024-09-11 09:19] LABS: Vitamin D 25 Hydroxy 74.8 ng/mL
[2024-09-11 10:09] LABS: Hemoglobin A1C 5.7 % (<5.7)
== END 2024-09-11 07:30 | disposition home or self-care (01) ==
PROVIDERS: PCP Internal Medicine; Visit Provider Internal Medicine
DX: E78.5 Hyperlipidemia, unspecified (principal); I10 Essential (primary) hypertension; R53.83 Other fatigue; R73.9 Hyperglycemia, unspecified; E55.9 Vitamin D deficiency, unspecified
CPT/HCPCS: 36415; 80053; 80061; 82306; 83036; 85025

== ENCOUNTER 2024-09-25 10:36 | Outpatient (CLI) | payer BC, SELFPAY ==
--- NOTE | ~2024-09-25 | MM_ITS ---
EXAMINATION: MM screening chele BI w alayna HISTORY: Screening TECHNIQUE: Craniocaudal and mediolateral oblique 3-D tomosynthesis images were obtained and synthetic 2-D images were generated. CAD analysis was submitted and interpreted. COMPARISON: Comparison to multiple prior studies sequentially, with oldest reviewed study dated 08/30. BREAST PARENCHYMAL COMPOSITION: Not dense: There are scattered areas of fibroglandular density. FINDINGS: There is no evidence of suspicious mass, calcification, or architectural distortion to sugg est malignancy in either breast. There has been no suspicious interval change. IMPRESSION: 1. No mammographic evidence of malignancy. 2. Recommend routine screening mammography in one year. BI-RADS Category 1: Negative Reviewed, dictated and finalized at location A.
--- OUTSIDE RECORDS SUMMARY | 2024-09-25 10:44 | XMS_ITS | Clinical Summary ---
Author Organization [facility] [address] [facility] Address [address] [place] [id number] Care Team Providers Care Grassland Conservationist Name Role Phone Osmel Mckeon MD Primary Care Provider [phone] Sunil GAMBLE MD, [facility] [phone] Allergies Active Allergy Reactions Criticality Noted Date [...] warrant. Assessment & Plan (06/05/2019 4:42 PM EDUCATION TEACHER): 58yoF with prior labs by PCP showed ADLEAIDA 1:320, ESR 24, and negative RF. Hx [...] results. Assessment & Plan (06/05/2019 4:41 PM EDUCATION TEACHER): 58yoAisha presents for evaluation due to joint pain and abnormal labs with ADELADIA 1:320 and ESR 24. Her primary complaint [...] months. Assessment & Plan (05/22/2019 4:37 PM EDUCATION TEACHER): 58yoF presents for evaluation due to joint [...] on file Legal Sex Female 2:26 AM EDUCATION TEACHER Gender Identity Not on file Sexual Orientation Not on file Obstetrics History Last Filed Vital Signs Vital Sign Reading Time Taken Comments Blood Pressure 122/90 12/12/2019 1:18 PM CDT Pulse 61 06/05/2019 3:41 PM EDUCATION TEACHER Temperature 36.9 C (98.5 F) 12/12/2019 1:18 PM CDT Respiratory Rate - - Oxygen Saturation - - Inhaled Oxygen Concentration - - Weight 83.9 kg (185 lb) 12/12/2019 1:18 PM CDT Height 157.5 cm (5' 2 ) 12/12/2019 1:18 PM CDT Body Mass Index 33.84 12/12/2019 1:18 PM CDT Plan of Treatment Not on file Insurance [facility] C[facility] Care Teams Grassland Conservationist Relationship Specialty Start Date End Date Osmel Mckeon MD [address] [place] [address] PCP - General 06/24/14 Ruperto Barber III, MD [address] [facility] 110 [place] [address] Consulting Physician Rheumatology 05/01/19
--- OUTSIDE RECORDS SUMMARY | 2024-09-25 10:45 | XMS_ITS | Referral Summary ---
Author Organization [facility] [address] [facility] Address [address] [place] [address] Care Team Providers Care Etl Tester Name Role Phone Osmel Mckeon MD Primary Care Provider [phone] Sunil GAMBLE MD, Ruperto John. [facility] [phone] Allergies Active Allergy Reactions Criticality Noted Date [...] warrant. Assessment & Plan (06/05/2019 4:42 PM FOOD TECHNOLOGIST): 58yoF with prior labs by PCP showed [...] results. Assessment & Plan (06/05/2019 4:41 PM FOOD TECHNOLOGIST): 58yoAisha presents for evaluation due to joint [...] months. Assessment & Plan (05/22/2019 4:37 PM FOOD TECHNOLOGIST): 58yoF presents for evaluation due to joint [...] on file Legal Sex Female 2:26 AM FOOD TECHNOLOGIST Gender Identity Not on file Sexual Orientation Not on file Last Filed Vital Signs Vital Sign Reading Time Taken Comments Blood Pressure 122/90 12/12/2019 1:18 PM CDT Pulse 61 06/05/2019 3:41 PM FOOD TECHNOLOGIST Temperature 36.9 C (98.5 F) 12/12/2019 1:18 PM CDT Respiratory Rate - - Oxygen Saturation - - Inhaled Oxygen Concentration - - Weight 83.9 kg (185 lb) 12/12/2019 1:18 PM CDT Height 157.5 cm (5' 2 ) 12/12/2019 1:18 PM CDT Body Mass Index 33.84 12/12/2019 1:18 PM CDT Plan of Treatment Not on file Insurance [facility] H[facility]/PPO Address: [address] [place] [phone] [facility] CORE Care Teams Etl Tester Relationship Specialty Start Date End Date Osmel Mckeon MD [address] [facility] 162 [facility] 120 [place], [place] [id number] PCP - General 06/24/14 Ruperto Barber III, MD [address] [facility] 110 [place] [address] Consulting Physician Rheumatology 05/01/19
== END 2024-09-25 10:37 | disposition home or self-care (01) ==
LOC: ANHIMG 10:39
PROVIDERS: PCP Internal Medicine; Visit Provider Internal Medicine
DX: Z12.31 Encounter for screening mammogram for malignant neoplasm of breast (principal)
CPT/HCPCS: 77063; 77067

== ENCOUNTER 2025-01-29 12:24 | Emergency (ER) | payer BC, SELFPAY ==
--- NOTE | ~2025-01-29 | CT_ITS ---
EXAMINATION: CTA chest PE abdomen pel DATE: 01/29/2025 20:56 INDICATION: Covid. Shortness of breath. Abdominal pain, nausea, vomiting and diarrhea. TECHNIQUE: Computed tomography (CT) pulmonary angiogram of the chest was performed with 100 mL Omnipaque-350 intravenous contrast. Additional 3D reconstructions utilizing coronal maximum intensity projection (MIP) were performed. CT of the abdomen and pelvis was performed with intravenous contrast utilizing the same contrast bolus following a short delay. Automated exposure control and iterative reconstruction technique were employed. The dose-length product was 851.83 mGy-cm. COMPARISON: CT abdomen pelvis dated 12/21/2017 FINDINGS: Chest: No pulmonary embolism. Lungs are clear with no pneumonia, pulmonary edema or other pulmonary infiltrates. No pleural effusion or pneumothorax. Heart size is normal. No pericardial effusion. Thoracic aorta is normal in caliber with no dissection. No pathologically enlarged thoracic lymphadenopathy. 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 Moderate to severe thoracic spondylosis. Abdomen/pelvis: Cholecystectomy clips the gallbladder fossa. Again seen is a small region of focal hepatic steatosis along the gallbladder fossa. There are small dystrophic calcifications at the periphery of a 1.2 cm chronic splenic cyst. Pancreas, bilateral adrenal glands and left kidney are normal. There is swelling of the right kidney with geographic regions of decreased enhancement and mild right perinephric stranding consistent with pyelonephritis. In addition there is a more well-defined 1.3 similar cyst at the upper pole the right kidney. Bladder is normal. The uterus is not identified and has likely been surgically resected. Prominent diverticulosis with descending and sigmoid colon predominance and without adjacent from trace stranding to suggest diverticulitis. There is some fluid in the proximal colon consistent with given history of diarrhea. Small bowel and appendix are normal. No free intraperitoneal gas or fluid. No pathologically enlarged abdominal or pelvic lymphadenopathy. Severe disc height loss with prominent Modic type III sclerotic endplate changes at L5-S1. Moderate disc height loss at L4-5 and mild spondylosis and more cephalad lumbar spine. IMPRESSION: 1. Extensive pyelonephritis at the right kidney. Correlate with urinalysis. 2. No pulmonary embolism or other acute cardiopulmonary disease. Reviewed, dictated and finalized at location A.
--- NOTE | ~2025-01-29 | XR_ITS ---
Examination: XR chest 2V Clinical History: test positive for COVID x 5 days ago Comparison: 05/16/2023 Technique: PA and Lateral Findings: Cardiomediastinal silhouette normal size and configuration. Lungs clear. No acute bony abnormality. IMPRESSION: 1. No acute cardiopulmonary findings. Reviewed, dictated and finalized at location .
--- OUTSIDE RECORDS SUMMARY | 2025-01-29 12:27 | XMS_ITS | Clinical Summary ---
Author Organization [facility] [address] [facility] Address [address] [place] [phone] Care Team Providers Care Metal Fabricator Helper Name Role Phone Osmel Mckeon MD Primary Care Provider [phone] Sunil GAMBLE MD, Ruperto John. [facility] [phone] Allergies Active Allergy Reactions Criticality Noted Date [...] warrant. Assessment & Plan (06/05/2019 4:42 PM UMBRELLA CUTTER): 58yoF with prior labs by PCP showed [...] results. Assessment & Plan (06/05/2019 4:41 PM UMBRELLA CUTTER): 58yoAisha presents for evaluation due to joint [...] months. Assessment & Plan (05/22/2019 4:37 PM UMBRELLA CUTTER): 58yoF presents for evaluation due to joint [...] on file Legal Sex Female 2:26 AM UMBRELLA CUTTER Gender Identity Not on file Sexual Orientation Not on file Obstetrics History Last Filed Vital Signs Vital Sign Reading Time Taken Comments Blood Pressure 122/90 12/12/2019 1:18 PM CDT Pulse 61 06/05/2019 3:41 PM UMBRELLA CUTTER Temperature 36.9 C (98.5 F) 12/12/2019 1:18 PM CDT Respiratory Rate - - Oxygen Saturation - - Inhaled Oxygen Concentration - - Weight 83.9 kg (185 lb) 12/12/2019 1:18 PM CDT Height 157.5 cm (5' 2) 12/12/2019 1:18 PM CDT Body Mass Index 33.84 12/12/2019 1:18 PM CDT Plan of Treatment Not on file Insurance [facility] H[facility]/PPO Address: [address] [place] [address] [facility] CORE Care Teams Metal Fabricator Helper Relationship Specialty Start Date End Date Osmel Mckeon MD [address] [place] [address] PCP - General 06/24/14 Ruperto Barber III, MD [address] [place] [address] Consulting Physician Rheumatology 05/01/19
[2025-01-29 12:30] VITALS: BP 144/105; PULSE 85; RESP 16; TEMP 37.3; O2SAT 97
--- NOTE | 2025-01-29 12:39 | ED.URI ---
HPI - URI/Sore Throat General Chief Complaint: Upper Respiratory Infection <Siri Massey, CIRCULATION DIRECTOR - Last Filed: 01/29/25 12:40> Stated Complaint: +Covid-fever, N/V/D headache, sweats <Siri Massey, CIRCULATION DIRECTOR - Last Filed: 01/29/25 12:40> Time Seen by Provider: 01/29/25 12:39 <Siri Massey, CIRCULATION DIRECTOR - Last Filed: 01/29/25 12:40> Focused HPI: Patient is a 64-year-old female who presents to the ER with of fever and diarrhea. She reports she was diagnosed with COVID approximately 5 days ago. Patient is concerned because she is experiencing significant abdominal pain and has a history of diverticulosis. She denies urinary symptoms but reports her urine is more concentrated because she is dehydrated. Patient reports she has been nauseated but her primary care provider called in a prescription for Zofran. She reports her T-max is 102.9? and she has been taking Tylenol/ibuprofen to help bring it down. Patient or sys a history of high blood pressure, seasonal allergies. GENERAL: Ill-appearing, well-nourished, and in no acute distress. HEAD: Normocephalic, atraumatic. CHEST: Clear to auscultation. ?No respiratory distress. HEART: Regular rate and rhythm.? NEURO: ?Alert and oriented x3. Patient screened in triage and initial orders placed.? ?Additional care and disposition to be based upon?diagnostic testing and treatment. <Siri Massey, CIRCULATION DIRECTOR - Last Filed: 01/29/25 12:40> Focused HPI: Patient is a 64-year-old female who presents to the ER with of fever and diarrhea. She reports she was diagnosed with COVID approximately 5 days ago. Patient is concerned because she is experiencing significant abdominal pain and has a history of diverticulosis. She denies urinary symptoms but reports her urine is more concentrated because she is dehydrated. Patient reports she has been nauseated but her primary care provider called in a prescription for Zofran. She reports her T-max is 102.9? and she has been taking Tylenol/ibuprofen to help bring it down. Patient or sys a history of high blood pressure, seasonal allergies. GENERAL: Ill-appearing, well-nourished, and in no acute distress. HEAD: Normocephalic, atraumatic. CHEST: Clear to auscultation. ?No respiratory distress. HEART: Regular rate and rhythm.? NEURO: ?Alert and oriented x3. Patient screened in triage and initial orders placed.? ?Additional care and disposition to be based upon?diagnostic testing and treatment. <ISIDRO Mchugh Last Filed: 01/29/25 23:35> Source: patient <ISIDRO Mchugh Last Filed: 01/29/25 23:35> Mode of arrival: ambulatory <ISIDRO Mchugh Last Filed: 01/29/25 23:35> Limitations: no limitations <ISIDRO Mchugh Last Filed: 01/29/25 23:35> History of Present Illness HPI Narrative: Agree with above HPI. Reports diffuse abdominal pain. Denies rectal bleeding or melena. States nausea and vomiting have improved. Reports shortness breath, worse with any type of exertion. Does have congestion, sore throat, but denies significant cough <ISIDRO Mchugh Last Filed: 01/29/25 23:35> Related Data Home Medications: Home Medications ?Medication ?Instructions ?Recorded ?Confirmed ?Last Taken ?Type aspirin 81 mg tablet,delayed 81 mg PO DAILY 04/21/19 08/29/24 08/29/20 History release (Adult Low Dose Aspirin) multivitamin (Multiple Vitamins 1 tablet PO DAILY 04/21/19 08/29/24 08/29/20 History tablet) loratadine 10 mg tablet (Allergy 10 mg PO DAILY 11/22/22 08/29/24 Unknown History Relief (loratadine)) ibuprofen 400 mg tablet 400 mg PO TID 11/07/23 08/29/24 Unknown History <Siri Massey APRN - Last Filed: 01/29/25 12:40> Allergies/Adverse Reactions: Allergies Allergy/AdvReac Type Severity Reaction Status Date / Time Sulfa (Sulfonamide Allergy Mild Hives Verified 01/29/25 18:20 Antibiotics) <Siri Massey APRN - Last Filed: 01/29/25 12:40> Review of Systems Review of Systems: All systems reviewed & are unremarkable except as noted in HPI. <Marlyn Ballard PA-C - Last Filed: 01/29/25 23:35> All systems reviewed & are unremarkable except as noted in HPI and below <Marlyn Ballard PA-C - Last Filed: 01/29/25 23:35> [facility] Past Medical History Medical History: Medical History COVID-19 BMI 35.0-35.9,adult Rosacea LLQ pain Generalized abdominal pain Gastro-esophageal reflux disease without esophagitis Adenomatous colon polyp Essential (primary) hypertension Hypercholesterolemia <Siri Massey APRN - Last Filed: 01/29/25 12:40> Surgical History Surgical History: Surgical History History of cervical spinal surgery History of cholecystectomy History of knee replacement partial History of <Siri Massey APRN - Last Filed: 01/29/25 12:40> Family History Family History: Family History Mother Alzheimer disease Father No problems noted. Other Diabetes mellitus Family history of cardiovascular disease Hypertension <Siri Massey APRN - Last Filed: 01/29/25 12:40> Social History Social History: Social History Smoking packs per day: 1 Smoking cigarettes per day: 20.0 Years smoked: 20 Smoking pack-years: 20.00 Smoking status: Former smoker Tobacco type: cigarettes Second hand tobacco smoke exposure: No Smoking end date: 05/14/06 Alcohol intake: current Alcohol use details: socially Substance use: never Substance use type: does not use Do You Feel Safe in your Home?: Yes Lack of Transportation: No Lack of Food: Never True Current Housing: I Have Housing Concerned About Future Housing: No Difficulty Paying Gas/Electric Bills: No Difficulty Paying for Meds: No Currently Unemployed: No Education: Associate Degree Difficulty w/ Childcare or Family Care: No Living arrangements: with family Occupation/Education: retired Additional occupation/education comments: [employer] Gender identity (if verbalized by the patient): Female Spiritual care concerns: No <Siri Massey APRN - Last Filed: 01/29/25 12:40> Exam Narrative: GENERAL: Well appearing, obese with BMI of 33.9, non-toxic, in no acute distress. HEAD: Normocephalic, atraumatic. RESPIRATORY: Airway patent, respirations nonlabored. Clear to auscultation bilaterally, no rales, rhonchi, wheezing. No significant focal lung sounds. Speaking in full sentences. CARDIOVASCULAR: Regular rate and rhythm without murmurs, rubs, or gallops. ABDOMINAL: Soft, diffuse mild tenderness, nondistended. Normoactive BS. MUSCULOSKELETAL: Moves all extremities. No gross deformities. SKIN: Warm, dry, normal color. NEURO: A&O X3. Speech clear. Cranial nerves II-XII grossly intact. Steady gait. No ataxic movements. PSYCHIATRIC: Appropriate mood and affect. Normal interaction. <Marlyn Ballard PA-C - Last Filed: 01/29/25 23:35> Course Vital Signs Vital signs: Vital Signs Temperature 99.2 F 01/29/25 12:30 Pulse Rate 85 01/29/25 12:30 Respiratory Rate 16 01/29/25 12:30 Blood Pressure 144/105 H 01/29/25 12:30 Pulse Oximetry 97 01/29/25 12:30 Temperature 99.2 F 01/29/25 12:30 Pulse Rate 82 01/29/25 18:05 Respiratory Rate 14 01/29/25 18:05 Blood Pressure 138/75 01/29/25 19:02 Pulse Oximetry 99 01/29/25 19:02 <Siri Massey, VICTORIANO - Last Filed: 01/29/25 12:40> Vital Signs Temperature 99.2 F 01/29/25 12:30 Pulse Rate 85 01/29/25 12:30 Respiratory Rate 16 01/29/25 12:30 Blood Pressure 144/105 H 01/29/25 12:30 Pulse Oximetry 97 01/29/25 12:30 Temperature 99.2 F 01/29/25 12:30 Pulse Rate 82 01/29/25 18:05 Respiratory Rate 14 01/29/25 18:05 Blood Pressure 138/75 01/29/25 19:02 Pulse Oximetry 99 01/29/25 19:02 <Marlyn Ballard PA-C - Last Filed: 01/29/25 23:35> MDM - URI/Sore Throat MDM Narrative Medical decision making narrative: Patient presented to ED with multiple complaints related to COVID. Diagnosed 5 days ago. On paxlovid, c/o persistent fevers, URI sx's, SOB, RAMIREZ, N/V/D, abd pain. Vital signs are stable upon arrival. Patient borderline febrile. Given Tylenol, fluids. Laboratory studies with leukocytosis of 16.9. Mild anemia noted at 10.7. Patient without recent bleeding. CMP with evidence of mild dehydration. Sodium 130, chloride 93. Kidney function is stable. Lactic acid within normal range. Mild transaminitis noted. Patient without any right upper quadrant tenderness. Likely related to viral infection. Troponin undetectable. UA with findings concerning for infection, positive nitrate, 1+ leuk esterase, 11-20 WBC, 4+ urine bacteria. Sent for culture. Will treat. Chest x-ray clear CTA of chest/abdomen/pelvis obtained - no evidence of PE, no evidence of pneumonia. Does show evidence of R sided pyelonephritis. Discussed this finding with patient. She does report she has been having some flank pain over the last couple of days. Blood cultures obtained. Rocephin given in the ED. Discussed admission for continued evaluation versus discharge home. Utilized shared decision-making with patient/family. Patient would prefer to go home on antibiotics. She is feeling improved with fluids, feels comfortable going home. Vital signs have remained stable throughout ED stay. She is not meeting sepsis criteria. Feel is appropriate to trial oral antibiotics first. Discussed that if symptoms do not improve that patient will need to return for likely admission/IV antibiotics. Discussed strict return precautions. Patient voiced understanding. She again is comfortable going home, does not wish to be admitted at this time. Discharged in stable condition. <Marlyn Ballard PA-C - Last Filed: 01/29/25 23:35> Medical Records Attestation: I reviewed the patient's medical records. <Marlyn Ballard PA-C - Last Filed: 01/29/25 23:35> Lab Data Attestation: I reviewed the patient's lab results. <Marlyn Ballard PA-C - Last Filed: 01/29/25 23:35> Result diagrams: 01/29/25 19:43 01/29/25 19:43 <Siri Massey APRN - Last Filed: 01/29/25 12:40> Labs: Lab Results 01/29/25 01/29/25 01/29/25 Range/Units 19:42 19:43 20:42 WBC 16.9 H (4.5-10.0) K/mm3 RBC 3.67 L (4.2-5.4) M/mm3 Hgb 10.7 L (12.0-15.0) g/dL Hct 32.5 L (37.0-47.0) % MCV 88.6 (80-100) fl MCH 29.2 (26-34) pg MCHC 32.9 (32-36) g/dl RDW 14.9 H (11.5-14.5) % Plt Count 456 H (150-375) k/mm3 MPV 9.1 (7.4-10.4) fl Immature Gran % (Auto) 1.8 H (0-0.5) % Neut % (Auto) 72.8 (45.5-73.1) % Lymph % (Auto) 15.1 L (18.3-44.2) % Sunflower % (Auto) 9.0 H (2.6-8.5) % Eos % (Auto) 0.7 (0-4.4) % Baso % (Auto) 0.6 (0.2-1.2) % Lymph # (Auto) 2.54 (0.9-3.2) K/mm3 Sunflower # (Auto) 1.5 H (0.1-0.6) K/mm3 Eos # (Auto) 0.1 (0-0.3) K/mm3 Baso # (Auto) 0.1 (0.0-0.1) K/mm3 Abs Immat Gran (auto) 0.31 H (0.00-0.031) K/mm3 Absolute Neuts (auto) 12.3 H (1.3-6.7) K/mm3 Absolute Nucleated RBC 0.000 (0.0-0.012) K/mm3 Nucleated RBC % 0.0 (0.0-0.2) % Sodium 130 L (137-145) mmol/L Potassium 3.4 (3.4-5.0) mmol/L Chloride 93 L (98-107) mmol/L Carbon Dioxide 27 (22-30) mmol/L Anion Gap 10 (4-12) mmol/L BUN 20 H D (7-17) mg/dL Creatinine 0.95 (0.7-1.0) mg/dL Estim Creat Clear Calc 54 ml/min Estimated GFR 59 (59 - ) Glucose 90 (65-110) mg/dL Lactic Acid 1.1 (0.7-2.0) mmol/L Calcium 8.9 (8.4-10.2) mg/dL Magnesium 2.3 (1.6-2.3) mg/dL Total Bilirubin 0.4 (0.2-1.3) mg/dL AST 77 H (14-36) U/L ALT 86 H (6-35) U/L Alkaline Phosphatase 145 H (38-126) U/L Troponin I < 0.012 (0.000-0.034) ng/mL C-Reactive Protein 31.0 H (<1.0) mg/dL Total Protein 7.6 (6.3-8.2) g/dL Albumin 3.6 (3.5-5.1) g/dL Urine Color Yellow (Yellow) Urine Appearance Clear (Clear) Urine pH 6.5 (5.0-9.0) Ur Specific [place] 1.007 (1.001-1.035) Urine Protein 1+ H (Negative) mg/dL Urine Glucose (UA) Negative (Negative) mg/dL Urine Ketones Negative (Negative) mg/dL Ur Blood (Man) 2+ H (Negative) Urine Nitrate Positive H (Negative) Urine Bilirubin Negative (Negative) Urine Urobilinogen 0.2 (<2.0) mg/dL Add Ur Microanalysis Reviewed Leukocyte Esterase Rfl 1+ H (Negative) MAITE/UL Urine RBC 21-50 H (0-2) /hpf Urine WBC 11-20 H (0-3) /hpf Ur Squamous Epith Cells Occasional (Few) /hpf Urine Bacteria 4+ H /hpf Urine Casts 0-2 Influenza A (RT-PCR) Negative (Negative) Influenza B (RT-PCR) Negative (Negative) RSV (RT-PCR) Negative (Negative) SARS-CoV-2 RNA (RT-PCR) Negative (Negative) <Siri Massey, CIRCULATION DIRECTOR - Last Filed: 01/29/25 12:40> Lab Results 01/29/25 01/29/25 01/29/25 Range/Units 19:42 19:43 20:42 WBC 16.9 H (4.5-10.0) K/mm3 RBC 3.67 L (4.2-5.4) M/mm3 Hgb 10.7 L (12.0-15.0) g/dL Hct 32.5 L (37.0-47.0) % MCV 88.6 (80-100) fl MCH 29.2 (26-34) pg MCHC 32.9 (32-36) g/dl RDW 14.9 H (11.5-14.5) % Plt Count 456 H (150-375) k/mm3 MPV 9.1 (7.4-10.4) fl Immature Gran % (Auto) 1.8 H (0-0.5) % Neut % (Auto) 72.8 (45.5-73.1) % Lymph % (Auto) 15.1 L (18.3-44.2) % Sunflower % (Auto) 9.0 H (2.6-8.5) % Eos % (Auto) 0.7 (0-4.4) % Baso % (Auto) 0.6 (0.2-1.2) % Lymph # (Auto) 2.54 (0.9-3.2) K/mm3 Sunflower # (Auto) 1.5 H (0.1-0.6) K/mm3 Eos # (Auto) 0.1 (0-0.3) K/mm3 Baso # (Auto) 0.1 (0.0-0.1) K/mm3 Abs Immat Gran (auto) 0.31 H (0.00-0.031) K/mm3 Absolute Neuts (auto) 12.3 H (1.3-6.7) K/mm3 Absolute Nucleated RBC 0.000 (0.0-0.012) K/mm3 Nucleated RBC % 0.0 (0.0-0.2) % Sodium 130 L (137-145) mmol/L Potassium 3.4 (3.4-5.0) mmol/L Chloride 93 L (98-107) mmol/L Carbon Dioxide 27 (22-30) mmol/L Anion Gap 10 (4-12) mmol/L BUN 20 H D (7-17) mg/dL Creatinine 0.95 (0.7-1.0) mg/dL Estim Creat Clear Calc 54 ml/min Estimated GFR 59 (59 - ) Glucose 90 (65-110) mg/dL Lactic Acid 1.1 (0.7-2.0) mmol/L Calcium 8.9 (8.4-10.2) mg/dL Magnesium 2.3 (1.6-2.3) mg/dL Total Bilirubin 0.4 (0.2-1.3) mg/dL AST 77 H (14-36) U/L ALT 86 H (6-35) U/L Alkaline Phosphatase 145 H (38-126) U/L Troponin I < 0.012 (0.000-0.034) ng/mL C-Reactive Protein 31.0 H (<1.0) mg/dL Total Protein 7.6 (6.3-8.2) g/dL Albumin 3.6 (3.5-5.1) g/dL Urine Color Yellow (Yellow) Urine Appearance Clear (Clear) Urine pH 6.5 (5.0-9.0) Ur Specific [place] 1.007 (1.001-1.035) Urine Protein 1+ H (Negative) mg/dL Urine Glucose (UA) Negative (Negative) mg/dL Urine Ketones Negative (Negative) mg/dL Ur Blood (Man) 2+ H (Negative) Urine Nitrate Positive H (Negative) Urine Bilirubin Negative (Negative) Urine Urobilinogen 0.2 (<2.0) mg/dL Add Ur Microanalysis Reviewed Leukocyte Esterase Rfl 1+ H (Negative) MAITE/UL Urine RBC 21-50 H (0-2) /hpf Urine WBC 11-20 H (0-3) /hpf Ur Squamous Epith Cells Occasional (Few) /hpf Urine Bacteria 4+ H /hpf Urine Casts 0-2 Influenza A (RT-PCR) Negative (Negative) Influenza B (RT-PCR) Negative (Negative) RSV (RT-PCR) Negative (Negative) SARS-CoV-2 RNA (RT-PCR) Negative (Negative) <Marlyn Ballard PA-C - Last Filed: 01/29/25 23:35> Imaging Data Attestation: I personally reviewed and interpreted this imaging study as follows: <Marlyn Ballard PA-C - Last Filed: 01/29/25 23:35> Radiologist's impression: ITS Impressions Chest X-Ray 01/29/25 14:28 IMPRESSION: 1. No acute cardiopulmonary findings. Chest/Abdomen/Pelvis CTA 01/29/25 21:02 IMPRESSION: 1. Extensive pyelonephritis at the right kidney. Correlate with urinalysis. 2. No pulmonary embolism or other acute cardiopulmonary disease. <Marlyn Ballard PA-C - Last Filed: 01/29/25 23:35> Discharge Plan Discharge Clinical Impression: Pyelonephritis, COVID-19, Transaminitis <Siri Massey APRN - Last Filed: 01/29/25 12:40> Patient Disposition: Home <Siri Massey APRN - Last Filed: 01/29/25 12:40> Condition: Stable <Siri Massey APRN - Last Filed: 01/29/25 12:40> Instructions: Antibiotic Form, Urinary Tract Infection in Women (ED), Kidney Infection (ED), How to Recover from COVID-19 at Home (ED) <Siri Massey APRN - Last Filed: 01/29/25 12:40> Additional Instructions: Take antibiotics as prescribed for urinary/kidney infection. Stay well hydrated. Continue Tylenol and ibuprofen as needed for pain, Zofran as needed for nausea. Follow-up with your primary care doctor for further evaluation, urine culture results, and repeat laboratory testing as your liver enzymes are slightly elevated today. Return to the ED if you experience worsening or severe symptoms, severe pain, persistent fevers, unable to keep down food or drink, difficulty urinating, blood in urine, or any other symptoms of concern. <Siri Massey APRN - Last Filed: 01/29/25 12:40> Patient Language: Tuvaluan <Siri Massey APRN - Last Filed: 01/29/25 12:40> Prescriptions: New cephalexin 500 mg capsule 500 mg PO Q6H 7 Days Qty: 28 0RF No Action loratadine [Allergy Relief (loratadine)] 10 mg tablet 10 mg PO DAILY atenolol 100 mg tablet 100 mg PO DAILY Qty: 90 3RF aspirin [Adult Low Dose Aspirin] 81 mg tablet,delayed release (DR/EC) 81 mg PO DAILY multivitamin [Multiple Vitamins] Tablet 1 tablet PO DAILY ibuprofen 400 mg tablet 400 mg PO TID albuterol sulfate 90 mcg/actuation HFA aerosol inhaler 2 inh inhalation Q4-6H PRN (Reason: shortness of breath or wheezing) Qty: 25.5 3RF valsartan 160 mg tablet 320 mg PO DAILY Qty: 180 3RF terazosin 1 mg capsule 1 mg PO QHS Qty: 90 3RF montelukast 10 mg tablet 10 mg PO DAILY Qty: 90 3RF ondansetron HCl 4 mg tablet 4 mg PO Q8H PRN (Reason: nausea and vomiting) Qty: 30 0RF Paxlovid 300 mg (150 mg x 2)-100 mg tablets,dose pack See Rx Instructions PO .COMPLEX Qty: 30 0RF Rx Instructions: take TWO 150 mg tablets of nirmatrelvir with ONE 100 mg tablet of ritonavir twice daily for 5 days PO <Siri Massey APRN - Last Filed: 01/29/25 12:40> Follow-up/Referrals: Binu Casarez, [Primary Care Provider, Internal Medicine] <Siri Massey APRN - Last Filed: 01/29/25 12:40> Time of Disposition: 22:36 <Siri Massey APRN - Last Filed: 01/29/25 12:40> 22:36 <Marlyn Ballard PA-C - Last Filed: 01/29/25 23:35>
--- NOTE | 2025-01-29 18:04 | ED.URI ---
HPI - URI/Sore Throat General Chief Complaint: Upper Respiratory Infection Stated Complaint: +Covid-fever, N/V/D headache, sweats Time Seen by Provider: 01/29/25 12:39 Source: patient Mode of arrival: ambulatory Limitations: no limitations History of Present Illness HPI Narrative: Patient is a 64 y/o female who presents to the ED with multiple complaints, COVID. Related Data Home Medications ?Medication ?Instructions ?Recorded ?Confirmed ?Last Taken ?Type aspirin 81 mg tablet,delayed 81 mg PO DAILY 04/21/19 08/29/24 08/29/20 History release (Adult Low Dose Aspirin) multivitamin (Multiple Vitamins 1 tablet PO DAILY 04/21/19 08/29/24 08/29/20 History tablet) loratadine 10 mg tablet (Allergy 10 mg PO DAILY 11/22/22 08/29/24 Unknown History Relief (loratadine)) ibuprofen 400 mg tablet 400 mg PO TID 11/07/23 08/29/24 Unknown History Allergies Allergy/AdvReac Type Severity Reaction Status Date / Time Sulfa (Sulfonamide Allergy Mild Hives Verified 08/29/24 12:35 Antibiotics) [facility] Past Medical History Medical History (Updated 01/26/25 @ 11:06 by Binu Casarez DO) COVID-19 BMI 35.0-35.9,adult Rosacea LLQ pain Generalized abdominal pain Gastro-esophageal reflux disease without esophagitis Adenomatous colon polyp Essential (primary) hypertension Hypercholesterolemia Surgical History Surgical History History of cervical spinal surgery History of cholecystectomy History of knee replacement partial History of Family History Family History (Updated 08/29/24 @ 12:37 by MITCH Rachel) Mother Alzheimer disease Father No problems noted. Other Diabetes mellitus Family history of cardiovascular disease Hypertension Social History Social History (Updated 08/29/24 @ 13:05 by MITCH Rachel) Smoking packs per day: 1 Smoking cigarettes per day: 20.0 Years smoked: 20 Smoking pack-years: 20.00 Smoking status: Former smoker Tobacco type: cigarettes Second hand tobacco smoke exposure: No Smoking end date: 05/14/06 Alcohol intake: current Alcohol use details: socially Substance use: never Substance use type: does not use Do You Feel Safe in your Home?: Yes Lack of Transportation: No Lack of Food: Never True Current Housing: I Have Housing Concerned About Future Housing: No Difficulty Paying Gas/Electric Bills: No Difficulty Paying for Meds: No Currently Unemployed: No Education: Associate Degree Difficulty w/ Childcare or Family Care: No Living arrangements: with family Occupation/Education: retired Additional occupation/education comments: [employer] Gender identity (if verbalized by the patient): Female Spiritual care concerns: No Course Vital Signs Vital signs: Vital Signs Temperature 99.2 F 01/29/25 12:30 Pulse Rate 85 01/29/25 12:30 Respiratory Rate 16 01/29/25 12:30 Blood Pressure 144/105 H 01/29/25 12:30 Pulse Oximetry 97 01/29/25 12:30 Temperature 99.2 F 01/29/25 12:30 Pulse Rate 85 01/29/25 12:30 Respiratory Rate 16 01/29/25 12:30 Blood Pressure 144/105 H 01/29/25 12:30 Pulse Oximetry 97 01/29/25 12:30 Discharge Plan Discharge Patient Language: Ukrainian Prescriptions: No Action loratadine [Allergy Relief (loratadine)] 10 mg tablet 10 mg PO DAILY atenolol 100 mg tablet 100 mg PO DAILY Qty: 90 3RF aspirin [Adult Low Dose Aspirin] 81 mg tablet,delayed release (DR/EC) 81 mg PO DAILY multivitamin [Multiple Vitamins] Tablet 1 tablet PO DAILY ibuprofen 400 mg tablet 400 mg PO TID albuterol sulfate 90 mcg/actuation HFA aerosol inhaler 2 inh inhalation Q4-6H PRN (Reason: shortness of breath or wheezing) Qty: 25.5 3RF valsartan 160 mg tablet 320 mg PO DAILY Qty: 180 3RF terazosin 1 mg capsule 1 mg PO QHS Qty: 90 3RF montelukast 10 mg tablet 10 mg PO DAILY Qty: 90 3RF ondansetron HCl 4 mg tablet 4 mg PO Q8H PRN (Reason: nausea and vomiting) Qty: 30 0RF Paxlovid 300 mg (150 mg x 2)-100 mg tablets,dose pack See Rx Instructions PO .COMPLEX Qty: 30 0RF Rx Instructions: take TWO 150 mg tablets of nirmatrelvir with ONE 100 mg tablet of ritonavir twice daily for 5 days PO Follow-up/Referrals: Binu Casarez DO [Primary Care Provider, Internal Medicine]
[2025-01-29 18:05] VITALS: BP 150/77; PULSE 82; RESP 14; O2SAT 98
[2025-01-29] MEDS: ACETAMINOPHEN 500 MG TABLET 1000 MG PO (18:57)
[2025-01-29 19:02] VITALS: BP 138/75; O2SAT 99
[2025-01-29 20:00] VITALS: TEMP 37.2
[2025-01-29 20:06] LABS: Hematocrit 32.5 % (37.0-47.0); Hemoglobin 10.7 g/dL (12.0-15.0); Immature Granulocyte Percent A 1.8 % (0-0.5); Lymphocytes Absolute Auto 2.54 K/mm3 (0.9-3.2); Mean Corpuscular HGB Conc 32.9 g/dl (32-36); Mean Corpuscular Hemoglobin 29.2 pg (26-34); Mean Corpuscular Volume 88.6 fl (80-100); Nucleated Red Blood Cells Absolute Auto 0.000 K/mm3 (0.0-0.012); Nucleated Red Blood Cells Perc 0.0 % (0.0-0.2); Platelet Count Result 456 k/mm3 (150-375); Red Blood Count 3.67 M/mm3 (4.2-5.4); White Blood Count 16.9 K/mm3 (4.5-10.0)
[2025-01-29 20:13] LABS: Add Urine Microscopic? YES; Appearance Urine Clear (Clear); Glucose Urine UA Negative (Negative); Leukocyte Esterase Ur 1+ LEU/UL (Negative); Need Manual Microscopic Reviewed; Nitrate Urine Positive (Negative); Non Pathogenic Casts 0-2; Specific Grav Ur 1.007 (1.001-1.035)
[2025-01-29 20:29] LABS: Alanine Aminotransferase 86 U/L (6-35); Albumin Level 3.6 g/dL (3.5-5.1); Alkaline Phosphatase 145 U/L (38-126); Anion Gap 10 mmol/L (4-12); Aspartate Amino Transferase 77 U/L (14-36); Bilirubin,Total 0.4 mg/dL (0.2-1.3); Blood Urea Nitrogen 20 mg/dL (7-17); Calcium 8.9 mg/dL (8.4-10.2); Carbon Dioxide 27 mmol/L (22-30); Chloride 93 mmol/L (98-107); Estimated CRCL calculation 54 ml/min; Estimated Glomerular Filt Rate 59; Glucose 90 mg/dL (65-110); Magnesium 2.3 mg/dL (1.6-2.3); Potassium 3.4 mmol/L (3.4-5.0); Sodium 130 mmol/L (137-145); Total Protein 7.6 g/dL (6.3-8.2)
[2025-01-29 20:37] LABS: Troponin I < 0.012 ng/mL (0.000-0.034)
[2025-01-29 20:59] LABS: CRP 31.0 mg/dL (<1.0)
[2025-01-29] MEDS: SODIUM CHLORIDE 0.9% IV 1,000 ML 999 ML IV CONT (21:07)
[2025-01-29 21:27] LABS: Influenza A QL RT-PCR Negative (Negative); Influenza B QL RT-PCR Negative (Negative); RSV RNA, RT-PCR Negative (Negative); SARS-CoV-2 RNA PCR Negative (Negative)
[2025-01-29] MEDS: cefTRIAXone 1 GM in SODIUM CHLORIDE 0.9% IV 50 ML 100 ML IVPB (23:31)
== END 2025-01-30 00:03 | disposition home or self-care (01) ==
PROVIDERS: Registered Nurse; Emergency Provider Physician Assistant; PCP Internal Medicine
DX: U07.1 COVID-19 (principal); N12 Tubulo-interstitial nephritis, not specified as acute or chronic; R74.01 Elevation of levels of liver transaminase levels; I10 Essential (primary) hypertension; E78.00 Pure hypercholesterolemia, unspecified; K21.9 Gastro-esophageal reflux disease without esophagitis; Z96.659 Presence of unspecified artificial knee joint; Z86.0101 Personal history of adenomatous and serrated colon polyps; Z87.891 Personal history of nicotine dependence; Z90.49 Acquired absence of other specified parts of digestive tract
CPT/HCPCS: 36415; 71046; 71275; 74177; 80053; 81001; 83605; 83735; 84484; 85025; 86140; 87040; 87077; 87086; 87186; 87637; 96361; 96365; 99284; A9270; J0696; J7030; Q9967

== ENCOUNTER 2025-02-03 12:36 | Inpatient (IN) | payer BC, SELFPAY ==
--- OUTSIDE RECORDS SUMMARY | 2021-07-29 04:45 | XMS_ITS | Continuity of Care Document ---
Author Organization [email or web address] Address [address] [place] [address] Phone Care Team Providers Care Construction Site Crossing Guard Name Role Phone Rito Mclean MD Unavailable Unavailable Procedures Procedure Date INJ SPINE CERV/THOR W/ IMAGING GUIDANCE SURGICAL TRAY LOW OSMOLAR CONTRAST (200 TO 299 MG IODI NE) KENALOG 10 MG Advance Directives Directive Yes / No Effective Date File Name No Information Encounters Encounter Description Practice Location Reason(s) For Visit Diagnoses Date Provider Providers Copied on [facility]counter [email or web address], [address], [place], [place], [id number], [place] tel:[phone] [facility] No Information Vinay Veras. [address] [place], [place], [id number], [place]. tel:[phone] Referring Provider: Santana Guerrero DO, [address], [place], [address]. tel:[phone] Family History Family Member Type Diagnosis Age At Onset No Information Payers Payer name Insurance type Covered alliance party ID Authoriza tibishnu(s) [facility] CI [id number] Social History Type Description Quantity Date Captured Comments Sex Male Smoking Status No Information Chief Complaint And Reason For Visit No Information Reason For Referral Reason For Referral No Information History Of Present Illness Encounter Date Complaint History Of Prese nt Illness No Information Functional Status Date Functional Assessmen t No Information Instructions Date Instruction Additional Infor mation No Information Assessments Type Assessment Date No Information Patient Care Teams Name Effective Dates (start - stop) Status Members No Information
--- OUTSIDE RECORDS SUMMARY | 2021-07-29 04:45 | XMS_ITS | Continuity of Care Document ---
Author Organization [facility] Address [address] [place] [address] Phone Care Team Providers Care Clinical Genetics Laboratory Chief Name Role Phone Rito Mclean MD Unavailable Unavailable Procedures Procedure Date INJ SPINE CERV/THOR W/ IMAGING GUIDANCE SURGICAL TRAY LOW OSMOLAR CONTRAST (200 TO 299 MG IODI NE) KENALOG 10 MG Advance Directives Directive Yes / No Effective Date File Name No Information Encounters Encounter Description Practice Location Reason(s) For Visit Diagnoses Date Provider Providers Copied on Encounter [facility], [address], [place], [place], [id number], [place] tel:[phone] [facility] No Information Vinay Veras. [address] [place], [place], [id number], [place]. tel:[phone] Referring Provider: Santana Guerrero DO, [address], [place], [address]. tel:[phone] Family History Family Member Type Diagnosis Age At Onset No Information Payers Payer name Insurance type Covered republican ID Authoriza tibishnu(s) [facility] CI [id number] Social History Type Description Quantity Date Captured [...]
--- NOTE | ~2025-02-03 | CT_ITS ---
Olga Elias EXAMINATION: CT abdomen pelvis w con COMPARISON: None HISTORY: Abd pain TECHNIQUE: Axial images were obtained through the abdomen, pelvis post administration of IV contrast. Oral contrast was also administered. Coronal reconstruction images were obtained from the axial views. CT scan performed using dose optimization techniques including the following automated exposure control; adjustment of mA and/or kV; use of iterative reconstruction technique. Automatic exposure control was used to reduce radiation dose. Permanent radiation dose record is archived to PACS. FINDINGS: CT abdomen: LUNG BASES: The lung bases are clear. The visualized portions of the heart and pericardium are unremarkable. LIVER: Mild hepatic steatosis. SPLEEN: Subcentimeter probable left complex splenic cyst.. KIDNEYS: Right Kidney: Subcentimeter right renal cyst. Left Kidney: Subcentimeter left renal cysts. ADRENAL GLANDS: Unremarkable. PANCREAS: Unremarkable. GALLBLADDER/BILIARY: Post cholecystectomy. STOMACH AND ESOPHAGUS: Visualized stomach and esophagus within normal limits. BOWEL/MESENTERY: Moderate diverticulosis. No colitis or diverticulitis. Appendix normal. Mesentery normal. Small bowel normal. Duodenal diverticulum 2 x 2 cm. ADENOPATHY/RETROPERITONEUM: No lymphadenopathy. AORTA/VASCULATURE: Normal caliber aorta. FREE FLUID OR FREE AIR: None. CT pelvis: SOLID ORGANS/REPRODUCTIVE: Post hysterectomy. BLADDER: Circumferential thickening of the bladder wall. OSSEOUS STRUCTURES: Grade 1 anterolisthesis L4 on L5 with severe loss of disc at L4-5 and L5-S1. OVERLYING SOFT TISSUES: Unremarkable. IMPRESSION: Cystitis Reviewed, dictated and finalized at location P. IMPRESSION: Cystitis
[2025-02-03 12:40] VITALS: BP 148/90; PULSE 83; RESP 18; TEMP 36.5; O2SAT 98
--- OUTSIDE RECORDS SUMMARY | 2025-02-03 12:43 | XMS_ITS | Clinical Summary ---
Author Organization [facility] [address] [facility] Address [address] [place] [address] Care Team Providers Care Blue Line Trimmer Name Role Phone Osmel Mckeon MD Primary Care Provider [phone] Sunil GAMBLE MD, Ruperto John. [facility] [phone] Allergies Active Allergy Reactions Criticality Noted Date [...] warrant. Assessment & Plan (06/05/2019 4:42 PM MANUFACTURING DEVELOPMENT ENGINEER): 58yoF with prior labs by PCP showed [...] results. Assessment & Plan (06/05/2019 4:41 PM MANUFACTURING DEVELOPMENT ENGINEER): 58yoAisha presents for evaluation due to joint [...] months. Assessment & Plan (05/22/2019 4:37 PM MANUFACTURING DEVELOPMENT ENGINEER): 58yoF presents for evaluation due to joint pain and abnormal labs with ADELAIAD 1:320 and ESR 24. Her primary complaint [...] on file Legal Sex Female 2:26 AM MANUFACTURING DEVELOPMENT ENGINEER Gender Identity Not on file Sexual Orientation Not on file Obstetrics History Last Filed Vital Signs Vital Sign Reading Time Taken Comments Blood Pressure 122/90 12/12/2019 1:18 PM CDT Pulse 61 06/05/2019 3:41 PM MANUFACTURING DEVELOPMENT ENGINEER Temperature 36.9 C (98.5 F) 12/12/2019 1:18 PM CDT Respiratory Rate - - Oxygen Saturation - - Inhaled Oxygen Concentration - - Weight 83.9 kg (185 lb) 12/12/2019 1:18 PM CDT Height 157.5 cm (5' 2) 12/12/2019 1:18 PM CDT Body Mass Index 33.84 12/12/2019 1:18 PM CDT Plan of Treatment Not on file Insurance [facility] Care Teams Blue Line Trimmer Relationship Specialty Start Date End Date Osmel Mckeon MD [address] [place] [address] PCP - General 06/24/14 Ruperto Barber III, MD [address] [place] [address] Consulting Physician Rheumatology 05/01/19
--- OUTSIDE RECORDS SUMMARY | 2025-02-03 12:43 | XMS_ITS | Patient Health Record ---
Author Organization [facility] Address [address] [place], [place] [id number] Care Team Providers Care Wood Products Manufacturer Name Role Phone TED Alcazar Unavailable [phone] Osmel Mckeon Unavailable Unavailable Reason For Referral No Information Plan Of Treatment No Information Insurance Providers Payer Name Payer Address Payer Phone Subscriber Number Group Number Insured Name Patient Relationship to Insured Coverage Start Date Coverage End Date [id number] Boby / YAW [address] [place], [place] [id number] KALEY MANCILLA Self - patient is the insured
--- NOTE | 2025-02-03 13:33 | ED_ITS ---
HPI - General Adult General Chief complaint: Abdominal Pain Stated complaint: here 01/29: states PCP told her to come for IV abx Time Seen by Provider: 02/03/25 13:24 Source: patient and family Mode of arrival: ambulatory Limitations: no limitations History of Present Illness HPI narrative: This is a 64-year-old female with history of diverticulosis, hyperlipidemia who presents the ED for positive blood cultures. Patient states that last week she was diagnosed pyelonephritis and was discharged home antibiotics. However, she was recently notified that she did have positive blood cultures and was advised to come to the ED for further evaluation and likely admission. Patient states that she has continued to have persistent diarrhea for the past week or so. She does have a history of diverticulosis and had a prior diverticulitis after a stomach bud leaving up to that. She has had 2-3 episodes of diarrhea in our during this time. She has 2 more days remaining on her Keflex. Her fevers have improved but she continues to be generally weak. Related Data Home Medications ?Medication ?Instructions ?Recorded ?Confirmed ?Last Taken ?Type aspirin 81 mg tablet,delayed 81 mg PO DAILY 04/21/19 0 08/29/24 08/29/20 History release (Adult Low Dose Aspirin) multivitamin (Multiple Vitamins 1 tablet PO DAILY 01/3008/29/24 08/29/20 History tablet) loratadine 10 mg tablet (Allergy 10 mg PO DAILY 08/29/24 Unknown History Relief (loratadine)) ibuprofen 400 mg tablet 400 mg PO TID 11/07/2308/29 Unknown History Allergies Allergy/AdvReac Type Severity Reaction Status Date / Time Sulfa (Sulfonamide Allergy Mild Hives Verified 02/03/25 12:42 Antibiotics) Review of Systems 2 Review of Systems: Gen.: As per HPI Eyes: Denies eye pain or visual change ENT: Denies congestion Respiratory: Denies shortness of breath or cough CV: Denies chest pain or palpitations GI: Denies abdominal pain nausea, emesis or diarrhea as per HPI Musculoskeletal: Denies back pain or muscle pain Neuro: Denies numbness, tingling, weakness or focal weakness Skin: Denies rash Except as documented, all other systems reviewed and negative [facility] Past Medical History Medical History (Updated 02/03/25 @ 20:55 by Sim Taylor MD) COVID-19 Adenomatous colon polyp Diverticulosis Diverticulitis BMI 35.0-35.9,adult Rosacea Gastro-esophageal reflux disease without esophagitis Essential (primary) hypertension Hypercholesterolemia Surgical History Surgical History History of carpal tunnel surgery of left wrist History of lumbar surgery History of hysterectomy History of cervical spinal surgery History of cholecystectomy History of knee replacement partial History of Family History Family History Mother Alzheimer disease Father No problems noted. Other Diabetes mellitus Family history of cardiovascular disease Hypertension Social History Social History Smoking packs per day: 1 Smoking cigarettes per day: 20.0 Years smoked: 20 Smoking pack-years: 20.00 Smoking status: Former smoker Tobacco type: cigarettes Second hand tobacco smoke exposure: No Smoking end date: 05/14/06 Alcohol intake: current Alcohol use details: socially Substance use: never Substance use type: does not use Do You Feel Safe in your Home?: Yes Lack of Transportation: No Lack of Food: Never True Current Housing: I Have Housing Concerned About Future Housing: No Difficulty Paying Gas/Electric Bills: No Difficulty Paying for Meds: No Currently Unemployed: No Education: Associate Degree Difficulty w/ Childcare or Family Care: No Living arrangements: with family Occupation/Education: retired Additional occupation/education comments: [employer] Gender identity (if verbalized by the patient): Female Spiritual care concerns: No Exam 2 Narrative: APPEARANCE: No acute distress, nontoxic, resting in bed EYES: EOMI HEENT: Normocephalic, atraumatic, OMM RESPIRATORY: No respiratory distress Clear to auscultation bilaterally with no rhonchi wheezing or rales. CARDIOVASCULAR: Regular rate and rhythm without murmurs rubs or gallops. ABDOMINAL: Soft, mild diffuse tenderness to palpation MUSCULOSKELETAl: Moves all extremities. No clubbing, cyanosis or edema. NEURO: Awake and alert. Following commands, speech normal, no focal deficits SKIN:: Warm, dry. No rashes lesions or abrasions PSYCHIATRIC: Normal affect/mood, Course Vital Signs Vital signs: Vital Signs Temperature 97.7 F 02/03/25 12:40 Pulse Rate 83 02/03/25 12:40 Respiratory Rate 18 02/03/25 12:40 Blood Pressure 148/90 H 02/03/25 12:40 Pulse Oximetry 98 02/03/25 12:40 Temperature 97.8 F 02/03/25 20:00 Pulse Rate 88 02/03/25 20:00 Respiratory Rate 16 02/03/25 20:00 Blood Pressure 158/93 H 02/03/25 20:00 Pulse Oximetry 98 02/03/25 20:00 Medical Decision Making MDM Narrative Medical decision making narrative: 64-year-old female who presented to the ED for positive blood cultures. On initial evaluation, patient was in no acute distress, afebrile, hemodynamically stable. She had both diffuse tenderness palpation to the head reviewed are lungs clear. She had a leukocytosis of 15.6 with mild anemia with hemoglobin at 10.5. Thrombocytosis of 695. Mildly elevated LFTs. CRP elevated at 2.5. UA clear. Given the review of cultures, patient will be started on Zosyn that will potentially cover her for diverticulitis as well. Patient will require admission for bacteremia. Discussed case with hospitalist who will admit the patient. Shortly after admission, patient did also test positive for C diff. Differential Diagnosis Differential Diagnosis: Bacteremia, sepsis, pyelonephritis, diverticulitis, gastroenteritis, enterocolitis, C diff Medical Records Medical records reviewed: Yes I reviewed the external patient's medical records. Medical records narrative: Blood cultures from 01/29/2025 positive for E coli with sensitivities to cefoxitin, ertapenem, Zosyn, meropenem, Augmentin Vital Signs Vital Signs: Vital Signs Temperature 97.7 F 02/03/25 12:40 Pulse Rate 83 02/03/25 12:40 Respiratory Rate 18 02/03/25 12:40 Blood Pressure 148/90 H 02/03/25 12:40 Pulse Oximetry 98 02/03/25 12:40 Temperature 97.8 F 02/03/25 20:00 Pulse Rate 88 02/03/25 20:00 Respiratory Rate 16 02/03/25 20:00 Blood Pressure 158/93 H 02/03/25 20:00 Pulse Oximetry 98 02/03/25 20:00 Lab Data Lab results reviewed: Yes I reviewed the patient's lab results. 02/03/25 14:02 02/03/25 14:02 Labs: Lab Results 02/03/25 02/03/25 Range/Units 14:02 16:39 WBC 15.6 H (4.5-10.0) K/mm3 RBC 3.57 L (4.2-5.4) M/mm3 Hgb 10.5 L (12.0-15.0) g/dL Hct 32.7 L (37.0-47.0) % MCV 91.6 (80-100) fl MCH 29.4 (26-34) pg MCHC 32.1 (32-36) g/dl RDW 14.7 H (11.5-14.5) % Plt Count 695 H D (150-375) k/mm3 MPV 8.7 (7.4-10.4) fl Immature Gran % (Auto) 4.0 H (0-0.5) % Neut % (Auto) 67.6 (45.5-73.1) % Lymph % (Auto) 20.3 (18.3-44.2) % [place] % (Auto) 5.8 (2.6-8.5) % Eos % (Auto) 1.6 (0-4.4) % Baso % (Auto) 0.7 (0.2-1.2) % Lymph # (Auto) 3.17 (0.9-3.2) K/mm3 [place] # (Auto) 0.9 H (0.1-0.6) K/mm3 Eos # (Auto) 0.3 (0-0.3) K/mm3 Baso # (Auto) 0.1 (0.0-0.1) K/mm3 Abs Immat Gran (auto) 0.63 H (0.00-0.031) K/mm3 Absolute Neuts (auto) 10.5 H (1.3-6.7) K/mm3 Absolute Nucleated RBC 0.000 (0.0-0.012) K/mm3 Nucleated RBC % 0.0 (0.0-0.2) % PT 13.5 (11.1-14.7) Seconds INR 1.0 APTT 22.7 (22.3-36.8) Seconds Sodium 134 L (137-145) mmol/L Potassium 4.5 (3.4-5.0) mmol/L Chloride 98 (98-107) mmol/L Carbon Dioxide 27 (22-30) mmol/L Anion Gap 9 (4-12) mmol/L BUN 20 H (7-17) mg/dL Creatinine 0.68 L (0.7-1.0) mg/dL Estim Creat Clear Calc 70 ml/min Estimated GFR > 60 (59 - ) Glucose 98 (65-110) mg/dL Lactic Acid 1.5 (0.7-2.0) mmol/L Calcium 9.3 (8.4-10.2) mg/dL Total Bilirubin 0.3 (0.2-1.3) mg/dL AST 55 H (14-36) U/L ALT 94 H (6-35) U/L Alkaline Phosphatase 105 (38-126) U/L C-Reactive Protein 2.5 H (<1.0) mg/dL Total Protein 8.0 (6.3-8.2) g/dL Albumin 3.8 (3.5-5.1) g/dL Urine Color Yellow (Yellow) Urine Appearance Clear (Clear) Urine pH 6.5 (5.0-9.0) Ur Specific [place] 1.003 (1.001-1.035) Urine Protein Negative (Negative) mg/dL Urine Glucose (UA) Negative (Negative) mg/dL Urine Ketones Negative (Negative) mg/dL Ur Blood (Man) Trace (Negative) Urine Nitrate Negative (Negative) Urine Bilirubin Negative (Negative) Urine Urobilinogen 0.2 (<2.0) mg/dL Add Ur Microanalysis Reviewed Leukocyte Esterase Rfl Negative (Negative) MAITE/UL Urine RBC 0-2 (0-2) /hpf Urine WBC 0-5 (0-3) /hpf Ur Squamous Epith Cells None seen (Few) /hpf Urine Bacteria None seen /hpf Urine Casts 0-2 C. difficile (PCR) Positive A* (NEGATIVE) Discharge Plan Discharge Clinical Impression: Bacteremia due to Escherichia coli, Other thrombocytosis, C. difficile colitis Patient Disposition: Still a Patient Condition: Stable
--- OUTSIDE RECORDS SUMMARY | 2025-02-03 13:42 | XMS_ITS | Clinical Summary ---
Author Organization [facility] [address] [facility] Address [address] [place] [address] Care Team Providers Care Prototype Deicer Assembler Name Role Phone Osmel Mckeon MD Primary Care Provider [phone] Sunil GAMBLE MD, Ruperto John. [facility] [phone] Allergies Active Allergy Reactions Criticality Noted Date [...] warrant. Assessment & Plan (06/05/2019 4:42 PM TOXICOLOGY TEACHER): 58yoF with prior labs by PCP [...] results. Assessment & Plan (06/05/2019 4:41 PM TOXICOLOGY TEACHER): 58yoAisha presents for evaluation due to [...] months. Assessment & Plan (05/22/2019 4:37 PM TOXICOLOGY TEACHER): 58yoF presents for evaluation due to [...] on file Legal Sex Female 2:26 AM TOXICOLOGY TEACHER Gender Identity Not on file Sexual Orientation Not on file Obstetrics History Last Filed Vital Signs Vital Sign Reading Time Taken Comments Blood Pressure 122/90 12/12/2019 1:18 PM CDT Pulse 61 06/05/2019 3:41 PM TOXICOLOGY TEACHER Temperature 36.9 C (98.5 F) 12/12/2019 1:18 PM CDT Respiratory Rate - - Oxygen Saturation - - Inhaled Oxygen Concentration - - Weight 83.9 kg (185 lb) 12/12/2019 1:18 PM CDT Height 157.5 cm (5' 2) 12/12/2019 1:18 PM CDT Body Mass Index 33.84 12/12/2019 1:18 PM CDT Plan of Treatment Not on file Insurance [facility] C[facility] Care Teams Prototype Deicer Assembler Relationship Specialty Start Date End Date Osmel Mckeon MD [address] [place] [address] PCP - General 06/24/14 Ruperto Barber III, MD [address] [place] [address] Consulting Physician Rheumatology 05/01/19
[2025-02-03 14:12] LABS: Hematocrit 32.7 % (37.0-47.0); Hemoglobin 10.5 g/dL (12.0-15.0); Immature Granulocyte Percent A 4.0 % (0-0.5); Lymphocytes Absolute Auto 3.17 K/mm3 (0.9-3.2); Mean Corpuscular HGB Conc 32.1 g/dl (32-36); Mean Corpuscular Hemoglobin 29.4 pg (26-34); Mean Corpuscular Volume 91.6 fl (80-100); Nucleated Red Blood Cells Absolute Auto 0.000 K/mm3 (0.0-0.012); Nucleated Red Blood Cells Perc 0.0 % (0.0-0.2); Platelet Count Result 695 k/mm3 (150-375); Red Blood Count 3.57 M/mm3 (4.2-5.4); White Blood Count 15.6 K/mm3 (4.5-10.0)
[2025-02-03 14:21] LABS: Add Urine Microscopic? YES; Appearance Urine Clear (Clear); Glucose Urine UA Negative (Negative); Leukocyte Esterase Ur Negative LEU/UL (Negative); Need Manual Microscopic Reviewed; Nitrate Urine Negative (Negative); Non Pathogenic Casts 0-2; Specific Grav Ur 1.003 (1.001-1.035)
[2025-02-03 14:22] LABS: INR 1.0; Prothrombin Time 13.5 Seconds (11.1-14.7)
[2025-02-03 14:23] LABS: Partial Thromboplastin Time 22.7 Seconds (22.3-36.8)
[2025-02-03 14:24] LABS: Alanine Aminotransferase 94 U/L (6-35); Albumin Level 3.8 g/dL (3.5-5.1); Alkaline Phosphatase 105 U/L (38-126); Anion Gap 9 mmol/L (4-12); Aspartate Amino Transferase 55 U/L (14-36); Bilirubin,Total 0.3 mg/dL (0.2-1.3); Blood Urea Nitrogen 20 mg/dL (7-17); CRP 2.5 mg/dL (<1.0); Calcium 9.3 mg/dL (8.4-10.2); Carbon Dioxide 27 mmol/L (22-30); Chloride 98 mmol/L (98-107); Estimated CRCL calculation 70 ml/min; Estimated Glomerular Filt Rate > 60; Glucose 98 mg/dL (65-110); Potassium 4.5 mmol/L (3.4-5.0); Sodium 134 mmol/L (137-145); Total Protein 8.0 g/dL (6.3-8.2)
[2025-02-03 14:37] VITALS: BP 157/98; PULSE 77; RESP 14; O2SAT 98
[2025-02-03] MEDS: SODIUM CHLORIDE 0.9% IV 1,000 ML 999 ML IV CONT (14:40)
[2025-02-03] MEDS: PIPERACILLIN/TAZOBACTAM SOD 4.5 GM in SODIUM CHLORIDE 0.9% IV 100 ML 200 ML IVPB (14:40)
[2025-02-03] MEDS: KETOROLAC 15 MG/ML VIAL (*BKC) IV PUSH (15:06)
--- NOTE | 2025-02-03 15:26 | PC.NURSE ---
Pt. able to ambulate to bathroom independently and return to bed. Daughter at bedside.
[2025-02-03 16:45] VITALS: BP 158/86; PULSE 75; RESP 16; O2SAT 99
--- NOTE | 2025-02-03 16:45 | PC.NURSE ---
Stool sample walked down to lab by cmm technician.
[2025-02-03 17:01] VITALS: BP 170/86; PULSE 71; RESP 14; O2SAT 99
[2025-02-03] MEDS: MEROPENEM 1 GM in SODIUM CHLORIDE 0.9% IV 100 ML 200 ML IVPB (17:19)
--- NOTE | 2025-02-03 17:22 | PM.IMHP ---
H&P: HPI History of Present Illness Date/Time: 02/03/25 17:22 Chief Complaint: Abnormal Labs Narrative: 64 y/o F with PMH hypertension, diverticulosis/diverticulitis, hyperlipidemia, rosacea, GERD, and diverticulitis presents here with positive blood cultures. The patient presents here from home on 02/03. She had been trying to contact her PCP for further direction as she was not feeling any better. The office reviewed her labs and informed her that labs were abnormal and directed her to the ER. She was evaluated at [place] [facility] on 01/29 for fever, diarrhea, and abdominal pain. Her workup that time showed mild dehydration, mild transaminitis, and UTI. CTA of the chest/abdomen/pelvis showed no PE or evidence of pneumonia, did show right-sided pyelonephritis. Admission versus discharge home was discussed, patient comfortable with discharge and was sent home on Keflex 500 mg q.6h x7 days. Now returning today as her PCP noted she had positive blood cultures and she has not been feeling improved. Blood cultures from 01/29 grew E coli with multiple resistances noted. She reports diarrhea for the past week, generalized weakness, insomnia, but has had an improvement in fever. Has had 7-10 BMs per day, initially bile like (yellow) and intermittent foamy appearance. Has had some tenesmus. She reports she had 2 days left of her Keflex course. Initial VS at presentation: 97.7? F, HR 83 RR 18, 148/90, and 98% on RA. ED workup showed: WBC 15.6 (16.9 on 01/29), hemoglobin 10.5 (10.7 on 01/29), platelet count 695, normal coags, sodium 134, creatinine 0.68 and GFR >60, lactic 1.5, AST 55, ALT 94, CRP 2.5, and UA unremarkable. Review of Systems Review of Systems: All systems reviewed & are unremarkable except as noted in HPI and below PMFSH Past Medical History Medical History (Updated 02/03/25 @ 20:55 by Sim Taylor MD) COVID-19 Adenomatous colon polyp Diverticulosis Diverticulitis BMI 35.0-35.9,adult Rosacea Gastro-esophageal reflux disease without esophagitis Essential (primary) hypertension Hypercholesterolemia Surgical History Surgical History History of carpal tunnel surgery of left wrist History of lumbar surgery History of hysterectomy History of cervical spinal surgery History of cholecystectomy History of knee replacement partial History of Family History Family History Mother Alzheimer disease Father No problems noted. Other Diabetes mellitus Family history of cardiovascular disease Hypertension Social History Social History Smoking packs per day: 1 Smoking cigarettes per day: 20.0 Years smoked: 20 Smoking pack-years: 20.00 Smoking status: Never smoker Tobacco type: cigarettes Second hand tobacco smoke exposure: No Smoking end date: 05/14/06 Alcohol intake: current Drinks per week: 1 Alcohol use details: socially Substance use: never Substance use type: does not use Do You Feel Safe in your Home?: Yes Lack of Transportation: No Lack of Food: Never True Current Housing: I Have Housing Concerned About Future Housing: No Difficulty Paying Gas/Electric Bills: No Difficulty Paying for Meds: No Currently Unemployed: No Education: Bachelor's Degree Difficulty w/ Childcare or Family Care: No Living arrangements: with family Occupation/Education: retired Additional occupation/education comments: [employer] Gender identity (if verbalized by the patient): Female Spiritual care concerns: No Meds Home Medications and Allergies Home Medications ?Medication ?Instructions ?Recorded ?Confirmed ?Type aspirin 81 mg tablet,delayed 81 mg PO DAILY 04/21/19 02/03/25 History release (Adult Low Dose Aspirin) multivitamin (Multiple Vitamins 1 tablet PO DAILY 04/21/19 02/03/25 History tablet) loratadine 10 mg tablet (Allergy 10 mg PO DAILY 11/22/22 02/03/25 History Relief (loratadine)) ibuprofen 400 mg tablet 400 mg PO TID 11/07/23 02/03/25 History albuterol sulfate 90 mcg/actuation 2 inh inhalation Q4-6H PRN 05/26/24 02/03/25 Rx aerosol inhaler shortness of breath or wheezing #25.5 grams terazosin 1 mg capsule 1 mg PO QHS #90 caps 05/26/24 02/03/25 Rx valsartan 160 mg tablet 320 mg (2 x 160 mg) PO DAILY #180 05/26/24 02/03/25 Rx tabs montelukast 10 mg tablet 10 mg PO DAILY #90 tabs 07/18/24 02/03/25 Rx atenolol 100 mg tablet 100 mg PO DAILY #90 tabs 08/29/24 02/03/25 Rx ondansetron HCl 4 mg tablet 4 mg PO Q8H PRN nausea and 01/26/25 02/03/25 Rx vomiting #30 tabs cephalexin 500 mg capsule 500 mg PO Q6H 7 days #28 caps 01/29/25 02/03/25 Rx Allergies Allergy/AdvReac Type Severity Reaction Status Date / Time Sulfa (Sulfonamide Allergy Mild Hives Verified 02/03/25 12:42 Antibiotics) Vital Signs Vital Signs - 24 hr 02/03/25 12:40 02/03/25 14:37 02/03/25 16:45 Temperature 97.7 F Pulse Rate 83 77 75 Respiratory Rate 18 14 16 Blood Pressure 148/90 H 157/98 H 158/86 H Pulse Oximetry 98 98 99 02/03/25 17:01 Temperature Pulse Rate 71 Respiratory Rate 14 Blood Pressure 170/86 H Pulse Oximetry 99 Exam Const: Other: , female, nontoxic appearance HENMT: Face/Nose/Sinus: Normal nares present Mouth: Yes moist mucous membranes Eyes: General: appearance normal, both eyes and all related structures Sclera: sclerae normal Pupils: Equal, round and reactive pupils present EOM: EOMs intact bilaterally Resp: Effort & Inspection: normal respiratory effort Auscultation: clear to auscultation bilaterally Cardio: Rate: regular rate Rhythm: regular rhythm Other: S1-S2 present without murmur, rub, ectopy GI: Other: Abdomen soft, nondistended, nontender. Normoactive bowel sounds in all quadrants. Skin: General skin exam: normal color and no rashes or lesions noted Wounds: no wounds Neuro: Speech: normal speech Motor exam (neuro): 5/5 motor strength present throughout Sensory Exam: normal sensation Other: A&O x4 Extrem: General: normal to inspection Psych: Mental Status: mental status grossly normal Affect: normal affect Other: Good insight and judgment, pleasant H&P: Results Labs Labs: Short CBC 02/03/25 Range/Units 14:02 WBC 15.6 H (4.5-10.0) K/mm3 Hgb 10.5 L (12.0-15.0) g/dL Hct 32.7 L (37.0-47.0) % Plt Count 695 H D (150-375) k/mm3 BMP 02/03/25 14:02 Sodium 134 L Potassium 4.5 Chloride 98 Carbon Dioxide 27 BUN 20 H Creatinine 0.68 L Glucose 98 Calcium 9.3 Liver Function 02/03/25 Range/Units 14:02 Total Bilirubin 0.3 (0.2-1.3) mg/dL AST 55 H (14-36) U/L ALT 94 H (6-35) U/L Alkaline Phosphatase 105 (38-126) U/L Albumin 3.8 (3.5-5.1) g/dL Urine 02/03/25 Range/Units 14:02 Urine Color Yellow (Yellow) Urine Appearance Clear (Clear) Urine pH 6.5 (5.0-9.0) Ur Specific [place] 1.003 (1.001-1.035) Urine Protein Negative (Negative) mg/dL Urine Glucose (UA) Negative (Negative) mg/dL Assessment and Plan Assessment and plan (1) Bacteremia: Code(s): R78.81 - Bacteremia Status: Acute Assessment and Plan: Presented on 01/29 with fever, diarrhea, and abdominal pain. Found to have a UTI and pyelonephritis. D/c'd with Keflex 500 mg q.6h x7 days, has 2 days left in course. Blood cultures that were obtained on 01/29 were positive, 2/2, with e.coli that showed multiple resistances including ampicillin, Ancef, cefpodoxime, ceftriaxone, Cipro, Levaquin, gentamicin, tetracycline, Bactrim. UA no longer concerning for UTI and unremarkable. - reviewed ED workup: WBC 15.6, lactic 1.5, CRP 2.5 upon admission - blood cultures redrawn on 02/03, follow - patient initially started on Zosyn in the ED, transitioned to meropenem on 02/03 - supportive care: Tylenol p.r.n., IV fluids, antiemetic p.r.n. (2) C. difficile diarrhea: Code(s): A04.72 - Enterocolitis due to Clostridium difficile, not specified as recurrent Status: Acute Assessment and Plan: Reporting persistent diarrhea for the past week, had diarrhea prior to evaluation on 01/29. CTA at that time showed diverticulosis without evidence of diverticulitis, extensive pyelonephritis to the right kidney, no PE, and no acute cardiopulmonary disease. - patient positive for C diff on 02/03, contact precautions - started on oral vancomycin q.6 hours - start probiotic - IV fluids: 1L bolus -> 75 mL/hr x2L - monitor renal function and electrolytes (3) Essential (primary) hypertension: Code(s): I10 - Essential (primary) hypertension Status: Chronic Assessment and Plan: - chronic, currently 158/93 - continue home medications: Terazosin, valsartan, atenolol - monitor Plan Diet: Regular GI Prophylaxis: N/a DVT Prophylaxis: SCDs IV fluids: 1L bolus -> 75 mL/hr x2L Lines/Tubes: Peripheral IV Code Status: Full code Quality VTE Prophylaxis VTE prophylaxis: mechanical ordered Hospitalist MIPS Advance Care Plan I have confirmed that the patient's Advanced Care Plan is present, code status is documented, or surrogate decision maker is listed in patient medical record.: Yes Medication Reconciliation I have utilized all available resources to obtain, update and review the patients current medications (includes all prescriptions, OTC, herbals, cannabis, and nutritional supplements).: Yes
--- NOTE | 2025-02-03 17:22 | PC.NURSE ---
Meal tray ordered for pt. to be delivered to bedside by technician support association.
[2025-02-03 17:52] LABS: Toxigenic C. Diff POSITIVE (NEGATIVE)
[2025-02-03 18:06] VITALS: BP 175/92; PULSE 83; RESP 16; O2SAT 98
--- NOTE | 2025-02-03 18:06 | PC.NURSE ---
Pt. sitting up in bed eating dinner. No requests at this time. Daughter at bedside.
[2025-02-03] MEDS: LACTATED RINGERS 1,000 ML 75 ML IV CONT (18:37)
--- NOTE | 2025-02-03 19:02 | PC.NURSE ---
Attempted to call [address] [place] [address] to give report, however they were in process of transferring another patient to [place]. Nurse said they would call back shortly.
[2025-02-03 19:51] VITALS: BMI 34.0
[2025-02-03 20:00] VITALS: BP 158/93; PULSE 88; RESP 16; TEMP 36.6; O2SAT 98
[2025-02-03] MEDS: ACETAMINOPHEN 325 MG TABLET 650 MG PO (23:54)
[2025-02-03] MEDS: TERAZOSIN HCL 1 MG CAPSULE PO (23:55)
[2025-02-03] MEDS: VANCOMYCIN HCL 125 MG ORAL CAPSULE PO (23:55)
[2025-02-04] MEDS: MEROPENEM 1 GM in SODIUM CHLORIDE 0.9% IV 100 ML 200 ML IVPB ×3 (02:06→17:20)
[2025-02-04 05:02] LABS: Hematocrit 33.0 % (37.0-47.0); Hemoglobin 10.4 g/dL (12.0-15.0); Immature Granulocyte Percent A 2.3 % (0-0.5); Lymphocytes Absolute Auto 3.80 K/mm3 (0.9-3.2); Mean Corpuscular HGB Conc 31.5 g/dl (32-36); Mean Corpuscular Hemoglobin 29.4 pg (26-34); Mean Corpuscular Volume 93.2 fl (80-100); Nucleated Red Blood Cells Absolute Auto 0.000 K/mm3 (0.0-0.012); Nucleated Red Blood Cells Perc 0.0 % (0.0-0.2); Platelet Count Result 656 k/mm3 (150-375); Red Blood Count 3.54 M/mm3 (4.2-5.4); White Blood Count 15.6 K/mm3 (4.5-10.0)
[2025-02-04 05:18] VITALS: BP 154/81; PULSE 73; RESP 16; TEMP 36.7; O2SAT 99
[2025-02-04 05:30] LABS: Alanine Aminotransferase 84 U/L (6-35); Albumin Level 3.6 g/dL (3.5-5.1); Alkaline Phosphatase 95 U/L (38-126); Anion Gap 10 mmol/L (4-12); Aspartate Amino Transferase 48 U/L (14-36); Bilirubin,Total 0.4 mg/dL (0.2-1.3); Blood Urea Nitrogen 20 mg/dL (7-17); Calcium 8.8 mg/dL (8.4-10.2); Carbon Dioxide 23 mmol/L (22-30); Chloride 104 mmol/L (98-107); Estimated CRCL calculation 80 ml/min; Estimated Glomerular Filt Rate > 60; Glucose 91 mg/dL (65-110); Magnesium 2.4 mg/dL (1.6-2.3); Potassium 4.8 mmol/L (3.4-5.0); Sodium 137 mmol/L (137-145); Total Protein 7.5 g/dL (6.3-8.2)
[2025-02-04] MEDS: VANCOMYCIN HCL 125 MG ORAL CAPSULE PO ×4 (06:05→23:09)
--- NOTE | 2025-02-04 06:58 | P.PNIM_ITS ---
Progress Note: A&P Assessment and Plan (1) Bacteremia: Code(s): R78.81 - Bacteremia Status: Acute Assessment and Plan: Presented on 01/29 with fever, diarrhea, and abdominal pain. Found to have a UTI and pyelonephritis. D/c'd with Keflex 500 mg q.6h x7 days, has 2 days left in course. Blood cultures that were obtained on 01/29 were positive, 2/2, with e.coli that showed multiple resistances including ampicillin, Ancef, cefpodoxime, ceftriaxone, Cipro, Levaquin, gentamicin, tetracycline, Bactrim. UA no longer concerning for UTI and unremarkable. * Reviewed ED workup: WBC 15.6, lactic 1.5, CRP 2.5 upon admission * Patient initially started on Zosyn in the ED, transitioned to meropenem on 02/03 * Supportive care: Tylenol p.r.n., IV fluids, antiemetic p.r.n. * 02/04: WBC still 15.6, blood cultures still pending (drawn on 02/03) (2) C. difficile diarrhea: Code(s): A04.72 - Enterocolitis due to Clostridium difficile, not specified as recurrent Status: Acute Assessment and Plan: Reporting persistent diarrhea for the past week, had diarrhea prior to kendra luation on 01/29. CTA at that time showed diverticulosis without evidence of diverticulitis, extensive pyelonephritis to the right kidney, no PE, and no acute cardiopulmonary disease. * Patient positive for C diff on 02/03, contact precautions * Continue oral vancomycin q.6 hours * Start probiotic * IV fluids: 1L bolus -> 75 mL/hr x2L * Monitor renal function and electrolytes (3) Essential (primary) hypertension: Code(s): I10 - Essential (primary) hypertension Status: Chronic Assessment and Plan: * Chronic, currently 154/81 * Continue home medications: Terazosin, valsartan, atenolol * Monitor Plan Diet: Regular GI Prophylaxis: N/a DVT Prophylaxis: SCDs IV fluids: 1L bolus -> 75 mL/hr x2L Lines/Tubes: Peripheral IV Code Status: Full code Subjective Date/time seen: 02/04/25 06:58 Interval history: 64 y/o F with PMH hypertension, diverticulosis/diverticulitis, hyperlipidemia, rosacea, GERD, and diverticulitis presents here with positive blood cultures. 02/04/2025 Patient sitting comfortably in bed at time of examination. Denies any chest pain, shortness off breath, nausea/vomiting at this time. Blood cultures still pending, continue meropenem and oral vancomycin. Review of Systems Review of Systems: All systems reviewed & are unremarkable except as noted in HPI and below Exam Const: Other: , female, nontoxic appearance HENMT: Face/Nose/Sinus: Normal nares present Mouth: Yes moist mucous membranes Eyes: General: appearance normal, both eyes and all related structures Sclera: sclerae normal Pupils: Equal, round and reactive pupils present EOM: EOMs intact bilaterally Resp: Effort & Inspection: normal respiratory effort Auscultation: clear to auscultation bilaterally Cardio: Rate: regular rate Rhythm: regular rhythm Other: S1-S2 present without murmur, rub, ectopy GI: Other: Abdomen soft, nondistended, nontender. Normoactive bowel sounds in all quadrants. Skin: General skin exam: normal color and no rashes or lesions noted Wounds: no wounds Neuro: Cranial nerves: Yes Equal, round and reactive pupils present Speech: normal speech Motor exam (neuro): 5/5 motor strength present throughout Sensory Exam: normal sensation Other: A&O x4 Extrem: General: normal to inspection Psych: Mental Status: mental status grossly normal Affect: normal affect Other: Good insight and judgment, pleasant Objective Data Vital Signs Vital Signs: Vital Signs - 24 hr 02/03/25 12:40 02/03/25 14:37 02/03/25 16:45 Temperature 97.7 F Pulse Rate 83 77 75 Respiratory Rate 18 14 16 Blood Pressure 148/90 H 157/98 H 158/86 H Pulse Oximetry 98 98 99 Oxygen Delivery 02/03/25 17:01 02/03/25 18:06 02/03/25 20:00 Temperature 97.8 F Pulse Rate 71 83 88 Respiratory Rate 14 16 16 Blood Pressure 170/86 H 175/92 H 158/93 H Pulse Oximetry 99 98 98 Oxygen Delivery 02/03/25 20:00 02/04/25 05:18 Temperature 98.0 F Pulse Rate 88 73 Respiratory Rate 16 16 Blood Pressure 154/81 H Pulse Oximetry 98 99 Oxygen Delivery Room Air Intake/Output Intake/Output: Intake & Output 02/01/25 02/02/25 02/03/25 09/24/25 23:59 23:59 23:59 23:59 Intake Total 1200 350 Balance 1200 350 Meds/Results Medications: Active Medications Generic Name Dose Route Start Last Admin Trade Name Freq PRN Reason Stop Dose Admin Acetaminophen 650 mg 02/03/25 18:07 02/03/25 23:54 Acetaminophen 325 Mg Tablet PO 650 mg Q6H PRN Administration Mild Pain (1-3) or Fever Albuterol 2 puff 02/03/25 22:32 Albuterol Sulfate (*Sp) Aerosol 1 Puff INHALATION Q4HRT PRN Shortness Of Breath Or Wheezing Aspirin 81 mg 02/04/25 09:00 Aspirin 81 Mg Enteric Tablet PO DAILY [facility] Atenolol 100 mg 02/04/25 09:00 Atenolol 50 Mg Tablet PO DAILY [facility] Meropenem 1 gm/ Sodium 100 mls @ 200 mls/hr 02/04/25 02:00 02/04/25 02:06 Chloride IVPB 200 mls/hr Q8H KINDRA Administration Lactated Ringer's 1,000 mls @ 75 mls/hr 02/03/25 18:15 02/03/25 18:37 Lr - Lactated Ringers Iv IV CONT 02/04/25 20:54 75 mls/hr .[id number] [facility] Administration Loratadine 10 mg 02/04/25 09:00 Loratadine 10 Mg Tablet PO DAILY [facility] Montelukast Sodium 10 mg 02/04/25 09:00 Montelukast Sodium 10 Mg Tablet PO DAILY [facility] Multivitamins Therapeutic 1 tablet 02/04/25 09:00 Multivitamins Therapeutic Tab (*Bkc) PO DAILY [facility] Ondansetron HCl 4 mg 02/03/25 18:07 Ondansetron Hcl Odt 4 Mg Tablet PO Q6H PRN Nausea And Vomiting Saccharomyces Boulardii 250 mg 02/04/25 09:00 Saccharomyces Boulardii 250 Mg Capsule PO BID [facility] Terazosin HCl 1 mg 02/03/25 22:35 02/03/25 23:55 Terazosin Hcl 1 Mg Capsule PO 1 mg QHS [facility] Administration Valsartan 320 mg 02/04/25 09:00 Valsartan 160 Mg Tablet PO DAILY [facility] Vancomycin HCl 125 mg 02/04/25 00:00 02/04/25 06:05 Vancomycin Hcl 125 Mg Oral Capsule PO 02/14/25 00:00 125 mg Q6HR KINDRA Administration Labs Labs: Laboratory Results - last 24 hr 02/03/25 02/03/25 02/04/25 14:02 16:39 04:45 WBC 15.6 H 15.6 H RBC 3.57 L 3.54 L Hgb 10.5 L 10.4 L Hct 32.7 L 33.0 L MCV 91.6 93.2 MCH 29.4 29.4 MCHC 32.1 31.5 L RDW 14.7 H 14.7 H Plt Count 695 H D 656 H MPV 8.7 8.4 Immature Gran % (Auto) 4.0 H 2.3 H Neut % (Auto) 67.6 66.6 Lymph % (Auto) 20.3 24.4 [place] % (Auto) 5.8 4.6 Eos % (Auto) 1.6 1.3 Baso % (Auto) 0.7 0.8 Lymph # (Auto) 3.17 3.80 H [place] # (Auto) 0.9 H 0.7 H Eos # (Auto) 0.3 0.2 Baso # (Auto) 0.1 0.1 Abs Immat Gran (auto) 0.63 H 0.36 H Absolute Neuts (auto) 10.5 H 10.4 H Absolute Nucleated RBC 0.000 0.000 Nucleated RBC % 0.0 0.0 PT 13.5 INR 1.0 APTT 22.7 Sodium 134 L 137 Potassium 4.5 4.8 Chloride 98 104 Carbon Dioxide 27 23 Anion Gap 9 10 BUN 20 H 20 H Creatinine 0.68 L 0.62 L Estim Creat Clear Calc 70 80 Estimated GFR > 60 > 60 Glucose 98 91 Lactic Acid 1.5 Calcium 9.3 8.8 Magnesium 2.4 H Total Bilirubin 0.3 0.4 AST 55 H 48 H ALT 94 H 84 H Alkaline Phosphatase 105 95 C-Reactive Protein 2.5 H Total Protein 8.0 7.5 Albumin 3.8 3.6 Urine Color Yellow Urine Appearance Clear Urine pH 6.5 Ur Specific [place] 1.003 Urine Protein Negative Urine Glucose (UA) Negative Urine Ketones Negative Ur Blood (Man) Trace Urine Nitrate Negative Urine Bilirubin Negative Urine Urobilinogen 0.2 Add Ur Microanalysis Reviewed Leukocyte Esterase Rfl Negative Urine RBC 0-2 Urine WBC 0-5 Ur Squamous Epith Cells None seen Urine Bacteria None seen Urine Casts 0-2 C. difficile (PCR) Positive A* Quality VTE Prophylaxis VTE prophylaxis: mechanical ordered
[2025-02-04 09:29] VITALS: PULSE 72
[2025-02-04] MEDS: SACCHAROMYCES BOULARDII 250 MG CAPSULE PO ×2 (09:29→16:25)
[2025-02-04] MEDS: MULTIVITAMINS THERAPEUTIC TAB (*BKC) 1 TABLET PO (09:29)
[2025-02-04 09:30] VITALS: PULSE 72; RESP 16; O2SAT 99
[2025-02-04] MEDS: VALSARTAN 160 MG TABLET 320 MG PO (09:30)
[2025-02-04] MEDS: ASPIRIN 81 MG ENTERIC TABLET PO (09:30)
[2025-02-04] MEDS: MONTELUKAST SODIUM 10 MG TABLET PO (09:30)
[2025-02-04] MEDS: LORATADINE 10 MG TABLET PO (09:30)
[2025-02-04] MEDS: ACETAMINOPHEN 325 MG TABLET 650 MG PO (09:44)
[2025-02-04] MEDS: LACTATED RINGERS 1,000 ML 75 ML IV CONT (13:39)
[2025-02-04 14:00] VITALS: BP 144/73; PULSE 77; RESP 18; TEMP 36.6; O2SAT 97
[2025-02-04] MEDS: HYDROcodone/acetaminophen (*CRX) 5-325 MG TABLET 1 TAB PO ×2 (14:38→21:25)
[2025-02-04 20:45] VITALS: PULSE 77; O2SAT 96
[2025-02-04] MEDS: TERAZOSIN HCL 1 MG CAPSULE PO (20:49)
[2025-02-04 21:25] VITALS: BP 174/83; PULSE 81; RESP 17; TEMP 37.1; O2SAT 98
[2025-02-05] MEDS: MEROPENEM 1 GM in SODIUM CHLORIDE 0.9% IV 100 ML 200 ML IVPB ×3 (02:04→17:06)
[2025-02-05] MEDS: HYDROcodone/acetaminophen (*CRX) 5-325 MG TABLET 1 TAB PO ×4 (05:29→23:41)
[2025-02-05 05:30] VITALS: BP 151/79; PULSE 77; RESP 18; TEMP 36.3; O2SAT 99
[2025-02-05] MEDS: VANCOMYCIN HCL 125 MG ORAL CAPSULE PO ×4 (05:30→23:42)
--- NOTE | 2025-02-05 06:54 | P.PNIM_ITS ---
Progress Note: A&P Assessment and Plan (1) Bacteremia: Code(s): R78.81 - Bacteremia Status: Acute Assessment and Plan: Presented on 01/29 with fever, diarrhea, and abdominal pain. Found to have a UTI and pyelonephritis. D/c'd with Keflex 500 mg q.6h x7 days, has 2 days left in course. Blood cultures that were obtained on 01/29 were positive, 2/2, with e.coli that showed multiple resistances including ampicillin, Ancef, cefpodoxime, ceftriaxone, Cipro, Levaquin, gentamicin, tetracycline, Bactrim. UA no longer concerning for UTI and unremarkable. * Reviewed ED workup: WBC 15.6, lactic 1.5, CRP 2.5 upon admission * Patient initially started on Zosyn in the ED, transitioned to meropenem on 02/03 * Supportive care: Tylenol p.r.n., IV fluids, antiemetic p.r.n. * 02/05: Leukocytosis improving, cultures ngtd - continue to monitor * Likely false negative as she had been on antibiotics prior to culture draw * Continue to monitor daily labs, vitals (2) C. difficile diarrhea: Code(s): A04.72 - Enterocolitis due to Clostridium difficile, not specified as recurrent Status: Acute Assessment and Plan: Reporting persistent diarrhea for the past week, had diarrhea prior to evaluation on 01/29. CTA at that time showed diverticulosis without evidence of diverticulitis, extensive pyelonephritis to the right kidney, no PE, and no acute cardiopulmonary disease. * Patient positive for C diff on 02/03, contact precautions * Continue oral vancomycin q.6 hours * Start probiotic * IV fluids: 1L bolus -> 75 mL/hr x2L * Monitor renal function and electrolytes (3) Essential (primary) hypertension: Code(s): I10 - Essential (primary) hypertension Status: Chronic Assessment and Plan: * Chronic, currently 154/81 * Continue home medications: Terazosin, valsartan, atenolol * Monitor Plan Diet: Regular GI Prophylaxis: N/a DVT Prophylaxis: SCDs IV fluids: 1L bolus -> 75 mL/hr x2L Lines/Tubes: Peripheral IV Code Status: Full code Subjective Date/time seen: 02/05/25 06:54 Interval history: 64 y/o F with PMH hypertension, diverticulosis/diverticulitis, hyperlipidemia, rosacea, GERD, and diverticulitis presents here with positive blood cultures. 02/05/2025 Patient sitting comfortably in bed at time of examination. Denies any chest pain, shortness of breath, nausea/vomiting at this time. Has some generalized abdominal discomfort but once again states she feels much better compared to day of admission. Blood cultures NGTD. Leukocytosis improving. Blood work otherwise unremarkable. Review of Systems Review of Systems: All systems reviewed & are unremarkable except as noted in HPI and below Exam Const: Other: , female, nontoxic appearance HENMT: Face/Nose/Sinus: Normal nares present Mouth: Yes moist mucous membranes Eyes: General: appearance normal, both eyes and all related structures Sclera: sclerae normal Pupils: Equal, round and reactive pupils present EOM: EOMs intact bilaterally Resp: Effort & Inspection: normal respiratory effort Auscultation: clear to auscultation bilaterally Cardio: Rate: regular rate Rhythm: regular rhythm Other: S1-S2 present without murmur, rub, ectopy GI: Other: Abdomen soft, nondistended, nontender. Normoactive bowel sounds in all [place] drants. Skin: General skin exam: normal color and no rashes or lesions noted Wounds: no wounds Neuro: Cranial nerves: Yes Equal, round and reactive pupils present Speech: normal speech Motor exam (neuro): 5/5 motor strength present throughout Sensory Exam: normal sensation Other: A&O x4 Extrem: General: normal to inspection Psych: Mental Status: mental status grossly normal Affect: normal affect Other: Good insight and judgment, pleasant Objective Data Vital Signs Vital Signs: Vital Signs - 24 hr 02/04/25 09:29 02/04/25 09:30 02/04/25 14:00 Temperature 98 F Pulse Rate 72 72 77 Respiratory Rate 16 18 Blood Pressure 144/73 H Pulse Oximetry 99 97 Oxygen Delivery Room Air Fraction of Inspired Oxygen 02/04/25 20:45 02/04/25 21:25 02/05/25 05:30 Temperature 98.7 F 97.4 F L Pulse Rate 77 81 77 Respiratory Rate 17 18 Blood Pressure 174/83 H 151/79 H Pulse Oximetry 96 98 99 Oxygen Delivery Room Air Fraction of Inspired Oxygen 21 Intake/Output Intake/Output: Intake & Output 02/02/25 02/03/25 02/04/25 02/05/25 23:59 23:59 23:59 23:59 Intake Total 1200 3556.2 1273.8 Balance 1200 3556.2 1273.8 Meds/Results Medications: Active Medications Generic Name Dose Route Start Last Admin Trade Name Freq PRN Reason Stop Dose Admin Acetaminophen 650 mg 02/03/25 18:07 02/04/25 09:44 Acetaminophen 325 Mg Tablet PO 650 mg Q6H PRN Administration Mild Pain (1-3) or Fever Hydrocodone Bitart/Acetaminophen 1 tab 02/04/25 13:58 02/05/25 05:29 Hydrocodone/Acetaminophen (*Crx) 5-325 Mg Tablet PO 1 tab Q6H PRN Administration Pain Rated 4-6 Albuterol 2 puff 02/03/25 22:32 Albuterol Sulfate (*Sp) Aerosol 1 Puff INHALATION Q4HRT PRN Shortness Of Breath Or Wheezing Aspirin 81 mg 02/04/25 09:00 02/04/25 09:30 Aspirin 81 Mg Enteric Tablet PO 81 mg DAILY KINDRA Administration Atenolol 100 mg 02/04/25 09:00 02/04/25 09:29 Atenolol 50 Mg Tablet PO 100 mg DAILY KINDRA Administration Meropenem 1 gm/ Sodium 100 mls @ 200 mls/hr 02/04/25 02:00 02/05/25 02:35 Chloride IVPB Infused Q8H KINDRA Infusion Loratadine 10 mg 02/04/25 09:00 02/04/25 09:30 Loratadine 10 Mg Tablet PO 10 mg DAILY KINDRA Administration Montelukast Sodium 10 mg 02/04/25 09:00 02/04/25 09:30 Montelukast Sodium 10 Mg Tablet PO 10 mg DAILY KINDRA Administration Multivitamins Therapeutic 1 tablet 02/04/25 09:00 02/04/25 09:29 Multivitamins Therapeutic Tab (*Bkc) PO 1 tablet DAILY KINDRA Administration Ondansetron HCl 4 mg 02/03/25 18:07 Ondansetron Hcl Odt 4 Mg Tablet PO Q6H PRN Nausea And Vomiting Saccharomyces Boulardii 250 mg 02/04/25 09:00 02/04/25 16:25 Saccharomyces Boulardii 250 Mg Capsule PO 250 mg BID KINDRA Administration Terazosin HCl 1 mg 02/03/25 22:35 02/04/25 20:49 Terazosin Hcl 1 Mg Capsule PO 1 mg QHS KINDRA Administration Valsartan 320 mg 02/04/25 09:00 02/04/25 09:30 Valsartan 160 Mg Tablet PO 320 mg DAILY KINDRA Administration Vancomycin HCl 125 mg 02/04/25 00:00 02/05/25 05:30 Vancomycin Hcl 125 Mg Oral Capsule PO 02/14/25 00:00 125 mg Q6HR KINDRA Administration Quality VTE Prophylaxis VTE prophylaxis: mechanical ordered
[2025-02-05 08:48] LABS: Hematocrit 34.0 % (37.0-47.0); Hemoglobin 10.8 g/dL (12.0-15.0); Immature Granulocyte Percent A 1.4 % (0-0.5); Lymphocytes Absolute Auto 4.11 K/mm3 (0.9-3.2); Mean Corpuscular HGB Conc 31.8 g/dl (32-36); Mean Corpuscular Hemoglobin 29.3 pg (26-34); Mean Corpuscular Volume 92.4 fl (80-100); Nucleated Red Blood Cells Absolute Auto 0.000 K/mm3 (0.0-0.012); Nucleated Red Blood Cells Perc 0.0 % (0.0-0.2); Platelet Count Result 700 k/mm3 (150-375); Red Blood Count 3.68 M/mm3 (4.2-5.4); White Blood Count 14.1 K/mm3 (4.5-10.0)
[2025-02-05] MEDS: SACCHAROMYCES BOULARDII 250 MG CAPSULE PO ×2 (09:07→17:06)
[2025-02-05] MEDS: VALSARTAN 160 MG TABLET 320 MG PO (09:07)
[2025-02-05] MEDS: MONTELUKAST SODIUM 10 MG TABLET PO (09:07)
[2025-02-05] MEDS: MULTIVITAMINS THERAPEUTIC TAB (*BKC) 1 TABLET PO (09:07)
[2025-02-05] MEDS: LORATADINE 10 MG TABLET PO (09:07)
[2025-02-05] MEDS: ASPIRIN 81 MG ENTERIC TABLET PO (09:07)
[2025-02-05 09:09] LABS: Alanine Aminotransferase 88 U/L (6-35); Albumin Level 3.9 g/dL (3.5-5.1); Alkaline Phosphatase 96 U/L (38-126); Anion Gap 10 mmol/L (4-12); Aspartate Amino Transferase 47 U/L (14-36); Bilirubin,Total 0.3 mg/dL (0.2-1.3); Blood Urea Nitrogen 18 mg/dL (7-17); Calcium 9.2 mg/dL (8.4-10.2); Carbon Dioxide 30 mmol/L (22-30); Chloride 98 mmol/L (98-107); Estimated CRCL calculation 72 ml/min; Estimated Glomerular Filt Rate > 60; Glucose 96 mg/dL (65-110); Potassium 4.5 mmol/L (3.4-5.0); Sodium 138 mmol/L (137-145); Total Protein 7.8 g/dL (6.3-8.2)
[2025-02-05 14:00] VITALS: BP 121/67; PULSE 78; RESP 18; TEMP 36.4; O2SAT 97
[2025-02-05 19:42] VITALS: BP 136/83; PULSE 77; RESP 17; TEMP 36.9; O2SAT 95
[2025-02-05] MEDS: TERAZOSIN HCL 1 MG CAPSULE PO (21:10)
[2025-02-06] MEDS: MEROPENEM 1 GM in SODIUM CHLORIDE 0.9% IV 100 ML 200 ML IVPB ×3 (01:32→17:18)
[2025-02-06 04:48] VITALS: BP 120/50; PULSE 83; RESP 18; TEMP 36.7; O2SAT 95
[2025-02-06 05:09] LABS: Hematocrit 33.7 % (37.0-47.0); Hemoglobin 10.4 g/dL (12.0-15.0); Immature Granulocyte Percent A 1.0 % (0-0.5); Lymphocytes Absolute Auto 3.96 K/mm3 (0.9-3.2); Mean Corpuscular HGB Conc 30.9 g/dl (32-36); Mean Corpuscular Hemoglobin 29.4 pg (26-34); Mean Corpuscular Volume 95.2 fl (80-100); Nucleated Red Blood Cells Absolute Auto 0.000 K/mm3 (0.0-0.012); Nucleated Red Blood Cells Perc 0.0 % (0.0-0.2); Platelet Count Result 653 k/mm3 (150-375); Red Blood Count 3.54 M/mm3 (4.2-5.4); White Blood Count 12.3 K/mm3 (4.5-10.0)
[2025-02-06 05:30] LABS: Alanine Aminotransferase 87 U/L (6-35); Albumin Level 3.7 g/dL (3.5-5.1); Alkaline Phosphatase 100 U/L (38-126); Anion Gap 11 mmol/L (4-12); Aspartate Amino Transferase 42 U/L (14-36); Bilirubin,Total 0.3 mg/dL (0.2-1.3); Blood Urea Nitrogen 21 mg/dL (7-17); Calcium 8.9 mg/dL (8.4-10.2); Carbon Dioxide 23 mmol/L (22-30); Chloride 101 mmol/L (98-107); Estimated CRCL calculation 79 ml/min; Estimated Glomerular Filt Rate > 60; Glucose 120 mg/dL (65-110); Potassium 4.3 mmol/L (3.4-5.0); Sodium 135 mmol/L (137-145); Total Protein 7.3 g/dL (6.3-8.2)
[2025-02-06] MEDS: HYDROcodone/acetaminophen (*CRX) 5-325 MG TABLET 1 TAB PO ×2 (05:52→11:54)
[2025-02-06] MEDS: VANCOMYCIN HCL 125 MG ORAL CAPSULE PO ×3 (05:53→17:18)
[2025-02-06 09:06] VITALS: PULSE 83
[2025-02-06] MEDS: MONTELUKAST SODIUM 10 MG TABLET PO (09:06)
[2025-02-06] MEDS: MULTIVITAMINS THERAPEUTIC TAB (*BKC) 1 TABLET PO (09:06)
[2025-02-06] MEDS: ASPIRIN 81 MG ENTERIC TABLET PO (09:06)
[2025-02-06] MEDS: SACCHAROMYCES BOULARDII 250 MG CAPSULE PO ×2 (09:06→17:18)
[2025-02-06] MEDS: LORATADINE 10 MG TABLET PO (09:07)
[2025-02-06] MEDS: VALSARTAN 160 MG TABLET 320 MG PO (09:07)
--- NOTE | 2025-02-06 09:52 | P.PNIM_ITS ---
Progress Note: A&P Assessment and Plan (1) Bacteremia: Code(s): R78.81 - Bacteremia Status: Acute Assessment and Plan: Presented on 01/29 with fever, diarrhea, and abdominal pain. Found to have a UTI and pyelonephritis. D/c'd with Keflex 500 mg q.6h x7 days, has 2 days left in course. Blood cultures that were obtained on 01/29 were positive, 2/2, with e.coli that showed multiple resistances including ampicillin, Ancef, cefpodoxime, ceftriaxone, Cipro, Levaquin, gentamicin, tetracycline, Bactrim. UA no longer concerning for UTI and unremarkable. * Reviewed ED workup: WBC 15.6, lactic 1.5, CRP 2.5 upon admission * Patient initially started on Zosyn in the ED, transitioned to meropenem on 02/03 * Supportive care: Tylenol p.r.n., IV fluids, antiemetic p.r.n. * 02/06: Leukocytosis improving, cultures ngtd - continue to monitor * Likely false negative as she had been on antibiotics prior to culture draw * Continue to monitor daily labs, vitals * Discuss with ID pharmacist regarding discharge antibiotic options (2) C. difficile diarrhea: Code(s): A04.72 - Enterocolitis due to Clostridium difficile, not specified as recurrent Status: Acute Assessment and Plan: Reporting persistent diarrhea for the past week, had diarrhea prior to evaluation on 01/29. CTA at that time showed diverticulosis without evidence of diverticulitis, extensive pyelonephritis to the right kidney, no PE, and no acute cardiopulmonary disease. * Patient positive for C diff on 02/03, contact precautions * Continue oral vancomycin q.6 hours * Start probiotic * IV fluids: 1L bolus -> 75 mL/hr x2L * Monitor renal function and electrolytes * Oral vancomycin will be continued through 02/14 (3) Essential (primary) hypertension: Code(s): I10 - Essential (primary) hypertension Status: Chronic Assessment and Plan: * Chronic, currently 154/81 * Continue home medications: Terazosin, valsartan, atenolol * Monitor Plan Diet: Regular GI Prophylaxis: N/a DVT Prophylaxis: SCDs IV fluids: 1L bolus -> 75 mL/hr x2L Lines/Tubes: Peripheral IV Code Status: Full code Subjective Date/time seen: 02/06/25 09:52 Interval history: 64 y/o F with PMH hypertension, diverticulosis/diverticulitis, hyperlipidemia, rosacea, GERD, and diverticulitis presents here with positive blood cultures. 02/06/2025 Patient sitting comfortably in bed at time of examination. Denies any chest pain, shortness of breath, nausea/vomiting at this time. Still has some generalized abdominal discomfort, but denies pain. One semi-solid bowel m ovement this morning. Still has a headache. Leukocytosis continues to improve - will look to discharge tomorrow. Review of Systems Review of Systems: All systems reviewed & are unremarkable except as noted in HPI and below Exam Const: Other: , female, nontoxic appearance HENMT: Face/Nose/Sinus: Normal nares present Mouth: Yes moist mucous membranes Eyes: General: appearance normal, both eyes and all related structures Sclera: sclerae normal Pupils: Equal, round and reactive pupils present EOM: EOMs intact bilaterally Resp: Effort & Inspection: normal respiratory effort Auscultation: clear to auscultation bilaterally Cardio: Rate: regular rate Rhythm: regular rhythm Other: S1-S2 present without murmur, rub, ectopy GI: Other: Abdomen soft, nondistended, nontender. Normoactive bowel sounds in all quadrants. Skin: General skin exam: normal color and no rashes or lesions noted Wounds: no wounds Neuro: Cranial nerves: Yes Equal, round and reactive pupils present Speech: normal speech Motor exam (neuro): 5/5 motor strength present throughout Sensory Exam: normal sensation Other: A&O x4 Extrem: General: normal to inspection Psych: Mental Status: mental status grossly normal Affect: normal affect Other: Good insight and judgment, pleasant Objective Data Vital Signs Vital Signs: Vital Signs - 24 hr 02/05/25 14:00 02/05/25 19:42 02/06/25 04:48 Temperature 97.6 F 98.5 F 98.1 F Pulse Rate 78 77 83 Respiratory Rate 18 17 18 Blood Pressure 121/67 136/83 120/50 L Pulse Oximetry 97 95 95 Oxygen Delivery 02/06/25 09:05 02/06/25 09:06 Temperature Pulse Rate 83 Respiratory Rate Blood Pressure Pulse Oximetry Oxygen Delivery Room Air Intake/Output Intake/Output: Intake & Output 02/03/25 02/04/25 02/05/25 02/06/25 23:59 23:59 23:59 23:59 Intake Total 1200 3556.2 2175.8 1110 Balance 1200 3556.2 2175.8 1110 Meds/Results Medications: Active Medications Generic Name Dose Route Start Last Admin Trade Name Freq PRN Reason Stop Dose Admin Acetaminophen 650 mg 02/03/25 18:07 02/04/25 09:44 Acetaminophen 325 Mg Tablet PO 650 mg Q6H PRN Administration Mild Pain (1-3) or Fever Hydrocodone Bitart/Acetaminophen 1 tab 02/04/25 13:58 02/06/25 05:52 Hydrocodone/Acetaminophen (*Crx) 5-325 Mg Tablet PO 1 tab Q6H PRN Administration Pain Rated 4-6 Albuterol 2 puff 02/03/25 22:32 Albuterol Sulfate (*Sp) Aerosol 1 Puff INHALATION Q4HRT PRN Shortness Of Breath Or Wheezing Aspirin 81 mg 02/04/25 09:00 02/06/25 09:06 Aspirin 81 Mg Enteric Tablet PO 81 mg DAILY KINDRA Administration Atenolol 100 mg 02/04/25 09:00 02/06/25 09:06 Atenolol 50 Mg Tablet PO 100 mg DAILY KINDRA Administration Meropenem 1 gm/ Sodium 100 mls @ 200 mls/hr 02/04/25 02:00 02/06/25 09:37 Chloride IVPB 02/10/25 10:29 Infused Q8H KINDRA Infusion Loratadine 10 mg 02/04/25 09:00 02/06/25 09:07 Loratadine 10 Mg Tablet PO 10 mg DAILY KINDRA Administration Montelukast Sodium 10 mg 02/04/25 09:00 02/06/25 09:06 Montelukast Sodium 10 Mg Tablet PO 10 mg DAILY KINDRA Administration Multivitamins Therapeutic 1 tablet 02/04/25 09:00 02/06/25 09:06 Multivitamins Therapeutic Tab (*Bkc) PO 1 tablet DAILY KINDRA Administration Ondansetron HCl 4 mg 02/03/25 18:07 Ondansetron Hcl Odt 4 Mg Tablet PO Q6H PRN Nausea And Vomiting Saccharomyces Boulardii 250 mg 02/04/25 09:00 02/06/25 09:06 Saccharomyces Boulardii 250 Mg Capsule PO 250 mg BID KINDRA Administration Terazosin HCl 1 mg 02/03/25 22:35 02/05/25 21:10 Terazosin Hcl 1 Mg Capsule PO 1 mg QHS KINDRA Administration Valsartan 320 mg 02/04/25 09:00 02/06/25 09:07 Valsartan 160 Mg Tablet PO 320 mg DAILY KINDRA Administration Vancomycin HCl 125 mg 02/04/25 00:00 02/06/25 05:53 Vancomycin Hcl 125 Mg Oral Capsule PO 02/14/25 00:00 125 mg Q6HR KINDRA Administration Labs Labs: Laboratory Results - last 24 hr 02/06/25 04:48 WBC 12.3 H RBC 3.54 L Hgb 10.4 L Hct 33.7 L MCV 95.2 MCH 29.4 MCHC 30.9 L RDW 14.5 Plt Count 653 H MPV 8.2 Immature Gran % (Auto) 1.0 H Neut % (Auto) 58.8 Lymph % (Auto) 32.2 [place] % (Auto) 5.6 Eos % (Auto) 1.7 Baso % (Auto) 0.7 Lymph # (Auto) 3.96 H [place] # (Auto) 0.7 H Eos # (Auto) 0.2 Baso # (Auto) 0.1 Abs Immat Gran (auto) 0.12 H Absolute Neuts (auto) 7.2 H Absolute Nucleated RBC 0.000 Nucleated RBC % 0.0 Sodium 135 L Potassium 4.3 Chloride 101 Carbon Dioxide 23 Anion Gap 11 BUN 21 H Creatinine 0.63 L Estim Creat Clear Calc 79 Estimated GFR > 60 Glucose 120 H Calcium 8.9 Total Bilirubin 0.3 AST 42 H ALT 87 H Alkaline Phosphatase 100 Total Protein 7.3 Albumin 3.7 Quality VTE Prophylaxis VTE prophylaxis: mechanical ordered
[2025-02-06 13:58] VITALS: BP 130/88; PULSE 81; RESP 18; TEMP 36.6; O2SAT 97
[2025-02-06] MEDS: ACETAMINOPHEN 325 MG TABLET 650 MG PO (22:03)
[2025-02-06] MEDS: TERAZOSIN HCL 1 MG CAPSULE PO (22:03)
[2025-02-06 22:17] VITALS: BP 142/80; PULSE 95; RESP 18; TEMP 37.1; O2SAT 97
[2025-02-07] MEDS: VANCOMYCIN HCL 125 MG ORAL CAPSULE PO ×4 (00:23→17:07)
[2025-02-07] MEDS: MEROPENEM 1 GM in SODIUM CHLORIDE 0.9% IV 100 ML 200 ML IVPB ×3 (02:21→17:07)
[2025-02-07 06:45] VITALS: BP 127/67; PULSE 90; RESP 16; TEMP 36.5; O2SAT 97
[2025-02-07 06:51] LABS: Hematocrit 36.1 % (37.0-47.0); Hemoglobin 11.4 g/dL (12.0-15.0); Immature Granulocyte Percent A 0.6 % (0-0.5); Lymphocytes Absolute Auto 3.84 K/mm3 (0.9-3.2); Mean Corpuscular HGB Conc 31.6 g/dl (32-36); Mean Corpuscular Hemoglobin 29.0 pg (26-34); Mean Corpuscular Volume 91.9 fl (80-100); Nucleated Red Blood Cells Absolute Auto 0.000 K/mm3 (0.0-0.012); Nucleated Red Blood Cells Perc 0.0 % (0.0-0.2); Platelet Count Result 737 k/mm3 (150-375); Red Blood Count 3.93 M/mm3 (4.2-5.4); White Blood Count 12.5 K/mm3 (4.5-10.0)
[2025-02-07 07:14] LABS: Alanine Aminotransferase 99 U/L (6-35); Albumin Level 4.1 g/dL (3.5-5.1); Alkaline Phosphatase 101 U/L (38-126); Anion Gap 8 mmol/L (4-12); Aspartate Amino Transferase 56 U/L (14-36); Bilirubin,Total 0.6 mg/dL (0.2-1.3); Blood Urea Nitrogen 25 mg/dL (7-17); Calcium 9.4 mg/dL (8.4-10.2); Carbon Dioxide 27 mmol/L (22-30); Chloride 99 mmol/L (98-107); Estimated CRCL calculation 79 ml/min; Estimated Glomerular Filt Rate > 60; Glucose 115 mg/dL (65-110); Potassium 4.9 mmol/L (3.4-5.0); Sodium 134 mmol/L (137-145); Total Protein 8.3 g/dL (6.3-8.2)
[2025-02-07] MEDS: MONTELUKAST SODIUM 10 MG TABLET PO (09:11)
[2025-02-07 09:12] VITALS: PULSE 90
[2025-02-07] MEDS: VALSARTAN 160 MG TABLET 320 MG PO (09:12)
[2025-02-07] MEDS: ASPIRIN 81 MG ENTERIC TABLET PO (09:12)
[2025-02-07] MEDS: LORATADINE 10 MG TABLET PO (09:12)
[2025-02-07] MEDS: SACCHAROMYCES BOULARDII 250 MG CAPSULE PO ×2 (09:12→17:08)
[2025-02-07] MEDS: MULTIVITAMINS THERAPEUTIC TAB (*BKC) 1 TABLET PO (09:12)
[2025-02-07 14:00] VITALS: BP 118/69; PULSE 85; RESP 20; TEMP 36.8; O2SAT 98
--- NOTE | 2025-02-07 14:32 | P.PNIM_ITS ---
Progress Note: A&P Assessment and Plan (1) Bacteremia: Code(s): R78.81 - Bacteremia Status: Acute Assessment and Plan: Presented on 01/29 with fever, diarrhea, and abdominal pain. Found to have a UTI and pyelonephritis. D/c'd with Keflex 500 mg q.6h x7 days, has 2 days left in course. Blood cultures that were obtained on 01/29 were positive, 2/2, with e.coli that showed multiple resistances including ampicillin, Ancef, cefpodoxime, ceftriaxone, Cipro, Levaquin, gentamicin, tetracycline, Bactrim. UA no longer concerning for UTI and unremarkable. * Reviewed ED workup: WBC 15.6, lactic 1.5, CRP 2.5 upon admission * Patient initially started on Zosyn in the ED, transitioned to meropenem on 02/03 * Supportive care: Tylenol p.r.n., IV fluids, antiemetic p.r.n. * 02/07: Leukocytosis slightly uptrending, cultures ngtd - continue to monitor * Continue to monitor daily labs, vitals * Discuss with ID pharmacist regarding discharge antibiotic options but will likely need atleast 7 days Meropenem given highly resistant ESBL bacteremia (2) C. difficile diarrhea: Code(s): A04.72 - Enterocolitis due to Clostridium difficile, not specified as recurrent Status: Acute Assessment and Plan: Reporting persistent diarrhea for the past week, had diarrhea prior to ev aluation on 01/29. CTA at that time showed diverticulosis without evidence of diverticulitis, extensive pyelonephritis to the right kidney, no PE, and no acute cardiopulmonary disease. * Patient positive for C diff on 02/03, contact precautions * Continue oral vancomycin q.6 hours * Start probiotic * IV fluids: 1L bolus -> 75 mL/hr x2L * Monitor renal function and electrolytes * Oral vancomycin will be continued through 02/14 * Still endorsing abdominal discomfort on 02/07 * Will repeat CT abd/pelvis given continued discomfort (3) Essential (primary) hypertension: Code(s): I10 - Essential (primary) hypertension Status: Chronic Assessment and Plan: * Chronic, currently 154/81 * Continue home medications: Terazosin, valsartan, atenolol * Monitor Plan Diet: Regular GI Prophylaxis: N/a DVT Prophylaxis: SCDs IV fluids: 1L bolus -> 75 mL/hr x2L Lines/Tubes: Peripheral IV Code Status: Full code Subjective Date/time seen: 02/07/25 14:32 Interval history: 64 y/o F with PMH hypertension, diverticulosis/diverticulitis, hyperlipidemia, rosacea, GERD, and diverticulitis presents here with positive blood cultures. 02/07/2025 Patient sitting comfortably in bed at time of examination. Denies any chest pain, shortness of breath, nausea/vomiting at this time. Still has some generalized abdominal discomfort today, as well as some bladder fullness after urinating, denies any burning however. Today is day 5 of Meropenem - likely will need 7 days atleast for ESBL bacteremia. Pt is ready to go home but understands need for continued hospitalization. Review of Systems Review of Systems: All systems reviewed & are unremarkable except as noted in HPI and below Exam Const: Other: , female, nontoxic appearance HENMT: Face/Nose/Sinus: Normal nares present Mouth: Yes moist mucous membranes Eyes: General: appearance normal, both eyes and all related structures Sclera: sclerae normal Pupils: Equal, round and reactive pupils present EOM: EOMs intact bilaterally Resp: Effort & Inspection: normal respiratory effort Auscultation: clear to auscultation bilaterally Cardio: Rate: regular rate Rhythm: regular rhythm Other: S1-S2 present without murmur, rub, ectopy GI: Other: Abdomen soft, nondistended, nontender. Normoactive bowel sounds in all quadrants. Skin: General skin exam: normal color and no rashes or lesions noted Wounds: no wounds Neuro: Cranial nerves: Yes Equal, round and reactive pupils present Speech: normal speech Motor exam (neuro): 5/5 motor strength present throughout Sensory Exam: normal sensation Other: A&O x4 Extrem: General: normal to inspection Psych: Mental Status: mental status grossly normal Affect: normal affect Other: Good insight and judgment, pleasant Objective Data Vital Signs Vital Signs: Vital Signs - 24 hr 02/06/25 22:17 02/07/25 06:45 02/07/25 08:00 Temperature 98.8 F 97.7 F Pulse Rate 95 90 Respiratory Rate 18 16 Blood Pressure 142/80 H 127/67 Pulse Oximetry 97 97 Oxygen Delivery Room Air 02/07/25 09:12 02/07/25 14:00 Temperature 98.3 F Pulse Rate 90 85 Respiratory Rate 20 Blood Pressure 118/69 Pulse Oximetry 98 Oxygen Delivery Intake/Output Intake/Output: Intake & Output 02/04/25 02/05/25 02/06/25 02/07/25 23:59 23:59 23:59 23:59 Intake Total 3556.2 2175.8 2715 1440 Balance 3556.2 2175.8 2715 1440 Meds/Results Medications: Active Medications Generic Name Dose Route Start Last Admin Trade Name Freq PRN Reason Stop Dose Admin Acetaminophen 650 mg 02/03/25 18:07 02/06/25 22:03 Acetaminophen 325 Mg Tablet PO 650 mg Q6H PRN Administration Mild Pain (1-3) or Fever Hydrocodone Bitart/Acetaminophen 1 tab 02/04/25 13:58 02/06/25 11:54 Hydrocodone/Acetaminophen (*Crx) 5-325 Mg Tablet PO 1 tab Q6H PRN Administration Pain Rated 4-6 Albuterol 2 puff 02/03/25 22:32 Albuterol Sulfate (*Sp) Aerosol 1 Puff INHALATION Q4HRT PRN Shortness Of Breath Or Wheezing Aspirin 81 mg 02/04/25 09:00 02/07/25 09:12 Aspirin 81 Mg Enteric Tablet PO 81 mg DAILY KINDRA Administration Atenolol 100 mg 02/04/25 09:00 02/07/25 09:12 Atenolol 50 Mg Tablet PO 100 mg DAILY KINDRA Administration Meropenem 1 gm/ Sodium 100 mls @ 200 mls/hr 02/04/25 02:00 02/07/25 09:12 Chloride IVPB 02/10/25 10:29 200 mls/hr Q8H KINDRA Administration Loratadine 10 mg 02/04/25 09:00 02/07/25 09:12 Loratadine 10 Mg Tablet PO 10 mg DAILY KINDRA Administration Montelukast Sodium 10 mg 02/04/25 09:00 02/07/25 09:11 Montelukast Sodium 10 Mg Tablet PO 10 mg DAILY KINDRA Administration Multivitamins Therapeutic 1 tablet 02/04/25 09:00 02/07/25 09:12 Multivitamins Therapeutic Tab (*Bkc) PO 1 tablet DAILY KINDRA Administration Ondansetron HCl 4 mg 02/03/25 18:07 Ondansetron Hcl Odt 4 Mg Tablet PO Q6H PRN Nausea And Vomiting Saccharomyces Boulardii 250 mg 02/04/25 09:00 02/07/25 09:12 Saccharomyces Boulardii 250 Mg Capsule PO 250 mg BID KINDRA Administration Terazosin HCl 1 mg 02/03/25 22:35 02/06/25 22:03 Terazosin Hcl 1 Mg Capsule PO 1 mg QHS KINDRA Administration Valsartan 320 mg 02/04/25 09:00 02/07/25 09:12 Valsartan 160 Mg Tablet PO 320 mg DAILY KINDRA Administration Vancomycin HCl 125 mg 02/04/25 00:00 02/07/25 13:17 Vancomycin Hcl 125 Mg Oral Capsule PO 02/14/25 00:00 125 mg Q6HR KINDRA Administration Labs Labs: Laboratory Results - last 24 hr 02/07/25 06:42 WBC 12.5 H RBC 3.93 L Hgb 11.4 L Hct 36.1 L MCV 91.9 MCH 29.0 MCHC 31.6 L RDW 14.3 Plt Count 737 H MPV 8.1 Immature Gran % (Auto) 0.6 H Neut % (Auto) 61.1 Lymph % (Auto) 30.8 [place] % (Auto) 5.5 Eos % (Auto) 1.2 Baso % (Auto) 0.8 Lymph # (Auto) 3.84 H [place] # (Auto) 0.7 H Eos # (Auto) 0.2 Baso # (Auto) 0.1 Abs Immat Gran (auto) 0.07 H Absolute Neuts (auto) 7.6 H Absolute Nucleated RBC 0.000 Nucleated RBC % 0.0 Sodium 134 L Potassium 4.9 Chloride 99 Carbon Dioxide 27 Anion Gap 8 BUN 25 H Creatinine 0.63 L Estim Creat Clear Calc 79 Estimated GFR > 60 Glucose 115 H Calcium 9.4 Total Bilirubin 0.6 AST 56 H ALT 99 H Alkaline Phosphatase 101 Total Protein 8.3 H Albumin 4.1 Quality VTE Prophylaxis VTE prophylaxis: mechanical ordered
[2025-02-07] MEDS: TERAZOSIN HCL 1 MG CAPSULE PO (21:19)
[2025-02-07 22:00] VITALS: BP 123/72; PULSE 89; RESP 16; TEMP 36.6; O2SAT 96
[2025-02-08] MEDS: VANCOMYCIN HCL 125 MG ORAL CAPSULE PO ×4 (00:58→17:41)
[2025-02-08] MEDS: MEROPENEM 1 GM in SODIUM CHLORIDE 0.9% IV 100 ML 200 ML IVPB ×3 (01:01→17:41)
[2025-02-08 05:26] LABS: Hematocrit 32.0 % (37.0-47.0); Hemoglobin 10.2 g/dL (12.0-15.0); Immature Granulocyte Percent A 0.6 % (0-0.5); Lymphocytes Absolute Auto 3.46 K/mm3 (0.9-3.2); Mean Corpuscular HGB Conc 31.9 g/dl (32-36); Mean Corpuscular Hemoglobin 29.4 pg (26-34); Mean Corpuscular Volume 92.2 fl (80-100); Nucleated Red Blood Cells Absolute Auto 0.000 K/mm3 (0.0-0.012); Nucleated Red Blood Cells Perc 0.0 % (0.0-0.2); Platelet Count Result 629 k/mm3 (150-375); Red Blood Count 3.47 M/mm3 (4.2-5.4); White Blood Count 10.8 K/mm3 (4.5-10.0)
[2025-02-08 05:30] VITALS: BP 124/66; PULSE 81; RESP 16; TEMP 36.4; O2SAT 98
[2025-02-08 05:48] LABS: Alanine Aminotransferase 88 U/L (6-35); Albumin Level 3.7 g/dL (3.5-5.1); Alkaline Phosphatase 92 U/L (38-126); Anion Gap 8 mmol/L (4-12); Aspartate Amino Transferase 41 U/L (14-36); Bilirubin,Total 0.3 mg/dL (0.2-1.3); Blood Urea Nitrogen 27 mg/dL (7-17); Calcium 9.1 mg/dL (8.4-10.2); Carbon Dioxide 28 mmol/L (22-30); Chloride 100 mmol/L (98-107); Estimated CRCL calculation 75 ml/min; Estimated Glomerular Filt Rate > 60; Glucose 94 mg/dL (65-110); Potassium 4.8 mmol/L (3.4-5.0); Sodium 136 mmol/L (137-145); Total Protein 7.2 g/dL (6.3-8.2)
[2025-02-08] MEDS: ACETAMINOPHEN 325 MG TABLET 650 MG PO ×2 (09:03→16:06)
[2025-02-08] MEDS: MONTELUKAST SODIUM 10 MG TABLET PO (09:04)
[2025-02-08] MEDS: ASPIRIN 81 MG ENTERIC TABLET PO (09:04)
[2025-02-08] MEDS: LORATADINE 10 MG TABLET PO (09:04)
[2025-02-08] MEDS: MULTIVITAMINS THERAPEUTIC TAB (*BKC) 1 TABLET PO (09:04)
[2025-02-08 09:05] VITALS: PULSE 82
[2025-02-08] MEDS: SACCHAROMYCES BOULARDII 250 MG CAPSULE PO ×2 (09:05→16:03)
[2025-02-08] MEDS: VALSARTAN 160 MG TABLET 320 MG PO (09:05)
--- NOTE | 2025-02-08 09:48 | P.PNIM_ITS ---
Progress Note: A&P Assessment and Plan (1) Bacteremia: Code(s): R78.81 - Bacteremia Status: Acute Assessment and Plan: Presented on 01/29 with fever, diarrhea, and abdominal pain. Found to have a UTI and pyelonephritis. D/c'd with Keflex 500 mg q.6h x7 days, has 2 days left in course. Blood cultures that were obtained on 01/29 were positive, 2/2, with e.coli that showed multiple resistances including ampicillin, Ancef, cefpodoxime, ceftriaxone, Cipro, Levaquin, gentamicin, tetracycline, Bactrim. UA no longer concerning for UTI and unremarkable. * Reviewed ED workup: WBC 15.6, lactic 1.5, CRP 2.5 upon admission * Patient initially started on Zosyn in the ED, transitioned to meropenem on 02/03 * Supportive care: Tylenol p.r.n., IV fluids, antiemetic p.r.n. * 02/08: Leukocytosis decreasing, cultures ngtd - continue to monitor * Continue to monitor daily labs, vitals * Will need to complete 7 total days IV antibiotics given wide resistivity (today is day 6) (2) C. difficile diarrhea: Code(s): A04.72 - Enterocolitis due to Clostridium difficile, not specified as recurrent Status: Acute Assessment and Plan: Reporting persistent diarrhea for the past week, had diarrhea prior to evaluation on 01/29. CTA at that time showed diverticulosis without evidence of diverticulitis, extensive pyelonephritis to the right kidney, no PE, and no acute cardiopulmonary disease. * Patient positive for C diff on 02/03, contact precautions * Continue oral vancomycin q.6 hours * Start probiotic * IV fluids: 1L bolus -> 75 mL/hr x2L * Monitor renal function and electrolytes * Oral vancomycin will be continued through 02/14 * Still endorsing abdominal discomfort on 02/07 * Repeat CT abd/pelvis: Cystitis (3) Essential (primary) hypertension: Code(s): I10 - Essential (primary) hypertension Status: Chronic Assessment and Plan: * Chronic, currently 154/81 * Continue home medications: Terazosin, valsartan, atenolol * Monitor Plan Diet: Regular GI Prophylaxis: N/a DVT Prophylaxis: SCDs IV fluids: 1L bolus -> 75 mL/hr x2L Lines/Tubes: Peripheral IV Code Status: Full code Subjective Date/time seen: 02/08/25 09:48 Interval history: 64 y/o F with PMH hypertension, diverticulosis/diverticulitis, hyperlipidemia, rosacea, GERD, and diverticulitis presents here with positive blood cultures. 02/08/2025 Patient sitting comfortably in bed at time of examination. Denies any chest pain, shortness of breath, nausea/vomiting at this time. Today is day 6 of IV antibiotics - will likely need 7 total days given wide resistivity of antibiotics. She states she feels slightly better than yesterday, sitting up in bed and endorsing semi-solid stools. Appetite remains ravenous and very ready to be discharged home but understands need for 7 day course of IV antibiotics. Review of Systems Review of Systems: All systems reviewed & are unremarkable except as noted in HPI and below Exam Const: Other: , female, nontoxic appearance HENMT: Face/Nose/Sinus: Normal nares present Mouth: Yes moist mucous membranes Eyes: General: appearance normal, both eyes and all related structures Sclera: sclerae normal Pupils: Equal, round and reactive pupils present EOM: EOMs intact bilaterally Resp: Effort & Inspection: normal respiratory effort Auscultation: clear to auscultation bilaterally Cardio: Rate: regular rate Rhythm: regular rhythm Other: S1-S2 present without murmur, rub, ectopy GI: Other: Abdomen soft, nondistended, nontender. Normoactive bowel sounds in all quadrants. Skin: General skin exam: normal color and no rashes or lesions noted Wounds: no wounds Neuro: Cranial nerves: Yes Equal, round and reactive pupils present Speech: normal speech Motor exam (neuro): 5/5 motor strength present throughout Sensory Exam: normal sensation Other: A&O x4 Extrem: General: normal to inspection Psych: Mental Status: mental status grossly normal Affect: normal affect Other: Good insight and judgment, pleasant Objective Data Vital Signs Vital Signs: Vital Signs - 24 hr 02/07/25 14:00 02/07/25 20:00 02/07/25 22:00 Temperature 98.3 F 97.8 F Pulse Rate 85 89 Respiratory Rate 20 16 Blood Pressure 118/69 123/72 Pulse Oximetry 98 96 Oxygen Delivery Room Air 02/08/25 05:30 02/08/25 09:05 Temperature 97.6 F Pulse Rate 81 82 Respiratory Rate 16 Blood Pressure 124/66 Pulse Oximetry 98 Oxygen Delivery Intake/Output Intake/Output: Intake & Output 02/05/25 02/06/25 02/07/25 02/08/25 23:59 23:59 23:59 23:59 Intake Total 2175.8 2715 3620 980 Balance 2175.8 2715 3620 980 Meds/Results Medications: Active Medications Generic Name Dose Route Start Last Admin Trade Name Freq PRN Reason Stop Dose Admin Acetaminophen 650 mg 02/03/25 18:07 02/08/25 09:03 Acetaminophen 325 Mg Tablet PO 650 mg Q6H PRN Administration Mild Pain (1-3) or Fever Hydrocodone Bitart/Acetaminophen 1 tab 02/04/25 13:58 02/06/25 11:54 Hydrocodone/Acetaminophen (*Crx) 5-325 Mg Tablet PO 1 tab Q6H PRN Administration Pain Rated 4-6 Albuterol 2 puff 02/03/25 22:32 Albuterol Sulfate (*Sp) Aerosol 1 Puff INHALATION Q4HRT PRN Shortness Of Breath Or Wheezing Aspirin 81 mg 02/04/25 09:00 02/08/25 09:04 Aspirin 81 Mg Enteric Tablet PO 81 mg DAILY KINDRA Administration Atenolol 100 mg 02/04/25 09:00 02/08/25 09:05 Atenolol 50 Mg Tablet PO 100 mg DAILY KINDRA Administration Meropenem 1 gm/ Sodium 100 mls @ 200 mls/hr 02/04/25 02:00 02/08/25 09:04 Chloride IVPB 02/10/25 10:29 200 mls/hr Q8H KINDRA Administration Loratadine 10 mg 02/04/25 09:00 02/08/25 09:04 Loratadine 10 Mg Tablet PO 10 mg DAILY KINDRA Administration Montelukast Sodium 10 mg 02/04/25 09:00 02/08/25 09:04 Montelukast Sodium 10 Mg Tablet PO 10 mg DAILY KINDRA Administration Multivitamins Therapeutic 1 tablet 02/04/25 09:00 02/08/25 09:04 Multivitamins Therapeutic Tab (*Bkc) PO 1 tablet DAILY KINDRA Administration Ondansetron HCl 4 mg 02/03/25 18:07 Ondansetron Hcl Odt 4 Mg Tablet PO Q6H PRN Nausea And Vomiting Saccharomyces Boulardii 250 mg 02/04/25 09:00 02/08/25 09:05 Saccharomyces Boulardii 250 Mg Capsule PO 250 mg BID KINDRA Administration Terazosin HCl 1 mg 02/03/25 22:35 02/07/25 21:19 Terazosin Hcl 1 Mg Capsule PO 1 mg QHS KINDRA Administration Valsartan 320 mg 02/04/25 09:00 02/08/25 09:05 Valsartan 160 Mg Tablet PO 320 mg DAILY KINDRA Administration Vancomycin HCl 125 mg 02/04/25 00:00 02/08/25 05:48 Vancomycin Hcl 125 Mg Oral Capsule PO 02/14/25 00:00 125 mg Q6HR KINDRA Administration Radiology Results: ITS Impressions Abdomen/Pelvis CT 02/07/25 16:46 IMPRESSION: Cystitis ADDENDUM: 02/07/25 1726 Comparison made to prior exam 01/29/2025. The perinephric stranding described previously involving the right kidney is improved with minimal residual heterogeneity of the parenchyma probably representing underlying residual mild pyelonephritis, there is no rim-enhancing abscess identified. Labs Labs: Laboratory Results - last 24 hr 02/08/25 05:09 WBC 10.8 H RBC 3.47 L Hgb 10.2 L Hct 32.0 L MCV 92.2 MCH 29.4 MCHC 31.9 L RDW 14.6 H Plt Count 629 H MPV 8.1 Immature Gran % (Auto) 0.6 H Neut % (Auto) 58.0 Lymph % (Auto) 31.9 [place] % (Auto) 7.3 Eos % (Auto) 1.5 Baso % (Auto) 0.7 Lymph # (Auto) 3.46 H [place] # (Auto) 0.8 H Eos # (Auto) 0.2 Baso # (Auto) 0.1 Abs Immat Gran (auto) 0.07 H Absolute Neuts (auto) 6.3 Absolute Nucleated RBC 0.000 Nucleated RBC % 0.0 Sodium 136 L Potassium 4.8 Chloride 100 Carbon Dioxide 28 Anion Gap 8 BUN 27 H Creatinine 0.66 L Estim Creat Clear Calc 75 Estimated GFR > 60 Glucose 94 Calcium 9.1 Total Bilirubin 0.3 AST 41 H ALT 88 H Alkaline Phosphatase 92 Total Protein 7.2 Albumin 3.7 Quality VTE Prophylaxis VTE prophylaxis: mechanical ordered
[2025-02-08 14:00] VITALS: BP 125/74; PULSE 83; RESP 16; TEMP 36.7; O2SAT 96
--- NOTE | 2025-02-08 14:46 | PCPTNOTE ---
per RN, pt is independent in room walking around and took a shower this morning, per RN pt does not have mobility needs at this time, discharging therapy orders
--- NOTE | 2025-02-08 14:52 | PCOTNOTE ---
per RN, pt is independent in room walking around and took a shower this morning, per RN pt does not have transfer and ADL needs at this time, discharging therapy orders.
[2025-02-08 19:51] VITALS: BP 129/69; PULSE 74; RESP 17; TEMP 36.7; O2SAT 99
[2025-02-08] MEDS: TERAZOSIN HCL 1 MG CAPSULE PO (21:18)
[2025-02-08] MEDS: MELATONIN 3 MG TABLET PO (21:19)
[2025-02-09] MEDS: VANCOMYCIN HCL 125 MG ORAL CAPSULE PO ×3 (01:02→14:34)
[2025-02-09] MEDS: MEROPENEM 1 GM in SODIUM CHLORIDE 0.9% IV 100 ML 200 ML IVPB ×2 (01:02→08:19)
[2025-02-09 05:17] LABS: Hematocrit 34.1 % (37.0-47.0); Hemoglobin 10.7 g/dL (12.0-15.0); Immature Granulocyte Percent A 0.5 % (0-0.5); Lymphocytes Absolute Auto 3.76 K/mm3 (0.9-3.2); Mean Corpuscular HGB Conc 31.4 g/dl (32-36); Mean Corpuscular Hemoglobin 29.2 pg (26-34); Mean Corpuscular Volume 93.2 fl (80-100); Nucleated Red Blood Cells Absolute Auto 0.000 K/mm3 (0.0-0.012); Nucleated Red Blood Cells Perc 0.0 % (0.0-0.2); Platelet Count Result 679 k/mm3 (150-375); Red Blood Count 3.66 M/mm3 (4.2-5.4); White Blood Count 10.9 K/mm3 (4.5-10.0)
[2025-02-09 05:26] VITALS: BP 124/78; PULSE 86; RESP 17; TEMP 36.7; O2SAT 97
[2025-02-09 05:50] LABS: Alanine Aminotransferase 109 U/L (6-35); Albumin Level 4.0 g/dL (3.5-5.1); Alkaline Phosphatase 96 U/L (38-126); Anion Gap 6 mmol/L (4-12); Aspartate Amino Transferase 55 U/L (14-36); Bilirubin,Total 0.4 mg/dL (0.2-1.3); Blood Urea Nitrogen 26 mg/dL (7-17); Calcium 9.4 mg/dL (8.4-10.2); Carbon Dioxide 29 mmol/L (22-30); Chloride 100 mmol/L (98-107); Estimated CRCL calculation 76 ml/min; Estimated Glomerular Filt Rate > 60; Glucose 99 mg/dL (65-110); Potassium 4.4 mmol/L (3.4-5.0); Sodium 135 mmol/L (137-145); Total Protein 7.8 g/dL (6.3-8.2)
[2025-02-09 08:17] VITALS: BP 136/83; PULSE 89; RESP 16; TEMP 36.4; O2SAT 97
[2025-02-09 08:19] VITALS: PULSE 89; RESP 16; O2SAT 97
[2025-02-09] MEDS: SACCHAROMYCES BOULARDII 250 MG CAPSULE PO (08:19)
[2025-02-09] MEDS: VALSARTAN 160 MG TABLET 320 MG PO (08:19)
[2025-02-09] MEDS: ASPIRIN 81 MG ENTERIC TABLET PO (08:19)
[2025-02-09] MEDS: MULTIVITAMINS THERAPEUTIC TAB (*BKC) 1 TABLET PO (08:20)
[2025-02-09] MEDS: MONTELUKAST SODIUM 10 MG TABLET PO (08:20)
[2025-02-09] MEDS: LORATADINE 10 MG TABLET PO (08:20)
[2025-02-09] MEDS: ACETAMINOPHEN 325 MG TABLET 650 MG PO (08:22)
--- NOTE | 2025-02-09 12:52 | P.DS_ITS ---
DS: Admitting Diagnosis Discharge Date 02/09/2025 Admitting Diagnosis Bacteremia, C. Diff DS: Discharge Diagnosis Discharge Diagnosis (1) Bacteremia: Code(s): R78.81 - Bacteremia Status: Acute Assessment and Plan: Presented on 01/29 with fever, diarrhea, and abdominal pain. Found to have a UTI and pyelonephritis. D/c'd with Keflex 500 mg q.6h x7 days, has 2 days left in course. Blood cultures that were obtained on 01/29 were positive, 2/2, with e.coli that showed multiple resistances including ampicillin, Ancef, cefpodoxime, ceftriaxone, Cipro, Levaquin, gentamicin, tetracycline, Bactrim. UA no longer concerning for UTI and unremarkable. * Reviewed ED workup: WBC 15.6, lactic 1.5, CRP 2.5 upon admission * Patient initially started on Zosyn in the ED, transitioned to meropenem on 02/03 * Supportive care: Tylenol p.r.n., IV fluids, antiemetic p.r.n. * 02/08: Leukocytosis decreasing, cultures ngtd - continue to monitor * Continue to monitor daily labs, vitals * Will need to complete 7 total days IV antibiotics given wide resistivity (today is day 6) (2) C. difficile diarrhea: Code(s): A04.72 - Enterocolitis due to Clostridium difficile, not specified as recurrent Status: Acute Assessment and Plan: Reporting persistent diarrhea for the past week, had diarrhea prior to evaluation on 01/29. CTA at that time showed diverticulosis without evidence of diverticulitis, extensive pyelonephritis to the right kidney, no PE, and no acute cardiopulmonary disease. * Patient positive for C diff on 02/03, contact precautions * Continue oral vancomycin q.6 hours * Start probiotic * IV fluids: 1L bolus -> 75 mL/hr x2L * Monitor renal function and electrolytes * Oral vancomycin will be continued through 02/14 * Still endorsing abdominal discomfort on 02/07 * Repeat CT abd/pelvis: Cystitis (3) Essential (primary) hypertension: Code(s): I10 - Essential (primary) hypertension Status: Chronic Assessment and Plan: * Chronic, currently 154/81 * Continue home medications: Terazosin, valsartan, atenolol * Monitor Plan Diet: Regular GI Prophylaxis: N/a DVT Prophylaxis: SCDs IV fluids: 1L bolus -> 75 mL/hr x2L Lines/Tubes: Peripheral IV Code Status: Full code DS: Summary Hospital Course Reason for hospitalization: Abnormal Labs Hospital Course: 64 y/o F with PMH hypertension, diverticulosis/diverticulitis, hyperlipidemia, rosacea, GERD, and diverticulitis presents here with positive blood cultures. The patient presents here from home on 02/03. She had been trying to contact her PCP for further direction as she was not feeling any better. The office reviewed her labs and informed her that labs were abnormal and directed her to the ER. She was evaluated at [facility] on 01/29 for fever, diarrhea, and abdominal pain. Her workup that time showed mild dehydration, mild transaminitis, and UTI. CTA of the chest/abdomen/pelvis showed no PE or evidence of pneumonia, did show right-sided pyelonephritis. Admission versus discharge home was discussed, patient comfortable with discharge and was sent home on Keflex 500 mg q.6h x7 days. Now returning today as her PCP noted she had positive blood cultures and she has not been feeling improved. Blood cultures from 01/29 grew E coli with multiple resistances noted. She reports diarrhea for the past week, generalized weakness, insomnia, but has had an improvement in fever. Has had 7-10 BMs per day, initially bile like (yellow) and intermittent foamy appearance. Has had some tenesmus. She reports she had 2 days left of her Keflex course. Initial VS at presentation: 97.7? F, HR 83 RR 18, 148/90, and 98% on RA. ED workup showed: WBC 15.6 (16.9 on 01/29), hemoglobin 10.5 (10.7 on 01/29), platelet count 695, normal coags, sodium 134, creatinine 0.68 and GFR >60, lactic 1.5, AST 55, ALT 94, CRP 2.5, and UA unremarkable. Blood cultures were drawn on 02/03 and showed no growth to date. She was treated with Meropenem for UTI/Bacteremia for 7 total days, with Ertapenem given on 02/09. Patient progressed slowly throughout hospitalization, but she steadily improved. Leukocytosis slowly improved and remained afebrile with stable vital signs and electrolytes. She continued to have an appetite throughout time in hospital and was otherwise hemodynamically stable for discharge on 02/09 after final dose of Ertapenem. She will be continued on oral Vancomycin for c. diff, 125mg q6 hours through 02/14. Pt discharged on 02/09. Status at Discharge Functional status at discharge: independent ambulation Overall status at discharge: patient is back to baseline Time Spent with Patient Time attestation: Total time spent providing and/or coordinating discharge services: 35 Exam Const: Other: , female, nontoxic appearance HENMT: Face/Nose/Sinus: Normal nares present Mouth: Yes moist mucous membranes Eyes: General: appearance normal, both eyes and all related structures Sclera: sclerae normal Pupils: Equal, round and reactive pupils present EOM: EOMs intact bilaterally Resp: Effort & Inspection: normal respiratory effort Auscultation: clear to auscultation bilaterally Cardio: Rate: regular rate Rhythm: regular rhythm Other: S1-S2 present without murmur, rub, ectopy GI: Other: Abdomen soft, nondistended, nontender. Normoactive bowel sounds in all quadrants. Skin: General skin exam: normal color and no rashes or lesions noted Wounds: no wounds Neuro: Cranial nerves: Yes Equal, round and reactive pupils present Speech: normal speech Motor exam (neuro): 5/5 motor strength present throughout Sensory Exam: normal sensation Other: A&O x4 Extrem: General: normal to inspection Psych: Mental Status: mental status grossly normal Affect: normal affect Other: Good insight and judgment, pleasant DS: Data Data Completed and Pending Labs on day of discharge: Labs from last 24 hours 02/09/25 04:39 WBC 10.9 H RBC 3.66 L Hgb 10.7 L Hct 34.1 L MCV 93.2 MCH 29.2 MCHC 31.4 L RDW 14.6 H Plt Count 679 H MPV 8.3 Immature Gran % (Auto) 0.5 Neut % (Auto) 55.5 Lymph % (Auto) 34.4 [place] % (Auto) 7.2 Eos % (Auto) 1.5 Baso % (Auto) 0.9 Lymph # (Auto) 3.76 H [place] # (Auto) 0.8 H Eos # (Auto) 0.2 Baso # (Auto) 0.1 Abs Immat Gran (auto) 0.05 H Absolute Neuts (auto) 6.1 Absolute Nucleated RBC 0.000 Nucleated RBC % 0.0 Sodium 135 L Potassium 4.4 Chloride 100 Carbon Dioxide 29 Anion Gap 6 BUN 26 H Creatinine 0.65 L Estim Creat Clear Calc 76 Estimated GFR > 60 Glucose 99 Calcium 9.4 Total Bilirubin 0.4 AST 55 H ALT 109 H Alkaline Phosphatase 96 Total Protein 7.8 Albumin 4.0 Preliminary micro results at discharge 02/03/25 14:02 Blood Culture - Preliminary Blood 02/03/25 14:02 Blood Culture - Preliminary Blood Discharge Plan Discharge Attending physician on discharge: Joycelyn Bundy Consulting providers: Daniele Dover Discharging Clinician: Daniele Dover Anticipated Discharge Date/Time: 02/09/25 12:43 Patient Disposition: Home Activity: no straining and as tolerated Diet: regular Discharge Instructions: Discharge disposition: Home Take medications as prescribed. You will be prescribed oral Vancomycin every 6 hours (or 4 times a day). Take this for the entire course as directed. Monitor blood pressures Take caution while standing, rising, or moving Change positions slowly taking a break between each position change If you standing feel dizzy sit back down and take a break Encouraged to continue with yearly vaccinations Return to the emergency department if he developed sudden shortness of breath, chest pain, nausea, vomiting, upset stomach or intractable diarrhea Return to the emergency department if you develop fever greater than 101.5 Follow-up with the primary care physician within 1-[address] [facility] for your healthcare needs Patient Instructions: Antibiotic Form Patient Language: R[place] Stand Alone Forms: General Discharge Information Follow-up/Referrals: Binu Casarez DO [Primary Care Provider, Internal Medicine] Discharge Medications: New vancomycin 125 mg Capsule 125 mg PO Q6HR 5 Days Qty: 22 0RF Continued loratadine [Allergy Relief (loratadine)] 10 mg tablet 10 mg PO DAILY atenolol 100 mg tablet 100 mg PO DAILY Qty: 90 3RF aspirin [Adult Low Dose Aspirin] 81 mg tablet,delayed release (DR/EC) 81 mg PO DAILY multivitamin [Multiple Vitamins] Tablet 1 tablet PO DAILY ibuprofen 400 mg tablet 400 mg PO TID albuterol sulfate 90 mcg/actuation HFA aerosol inhaler 2 inh inhalation Q4-6H PRN (Reason: shortness of breath or wheezing) Qty: 25.5 3RF valsartan 160 mg tablet 320 mg PO DAILY Qty: 180 3RF terazosin 1 mg capsule 1 mg PO QHS Qty: 90 3RF montelukast 10 mg tablet 10 mg PO DAILY Qty: 90 3RF ondansetron HCl 4 mg tablet 4 mg PO Q8H PRN (Reason: nausea and vomiting) Qty: 30 0RF Discontinued cephalexin 500 mg capsule 500 mg PO Q6H 7 Days Qty: 28 0RF Date of admission: 02/03/25 17:01 Primary Care Provider: Binu Casarez Admitting Provider: Dewayne Gutierrez Attending physician on admission: Dewayne Gutierrez Condition: Stable Quality VTE Prophylaxis VTE prophylaxis: mechanical ordered
[2025-02-09 13:39] VITALS: BP 121/66; PULSE 65; RESP 16; TEMP 36.6; O2SAT 98
[2025-02-09] MEDS: ERTAPENEM SODIUM 1 GM in SODIUM CHLORIDE 0.9% IV 50 ML 100 ML IVPB (14:35)
== END 2025-02-09 15:23 | disposition home or self-care (01) | DRG 872 ==
LOC: ANHED 13:36 → ANH3MEDSUR 17:48 → ANH2MED 18:40
PROVIDERS: Student in an Organized Health Care Education/Training Program; Admitting Provider Internal Medicine; Emergency Provider Student in an Organized Health Care Education/Training Program; PCP Internal Medicine; Visit Provider Physician Assistant
DX: R78.81 Bacteremia (principal); A04.72 Enterocolitis due to Clostridium difficile, not specified as recurrent; I10 Essential (primary) hypertension; K57.30 Diverticulosis of large intestine without perforation or abscess without bleeding; K21.9 Gastro-esophageal reflux disease without esophagitis; E78.5 Hyperlipidemia, unspecified; E78.00 Pure hypercholesterolemia, unspecified; L71.9 Rosacea, unspecified; Z96.659 Presence of unspecified artificial knee joint; Z79.82 Long term (current) use of aspirin; Z86.0101 Personal history of adenomatous and serrated colon polyps; Z87.891 Personal history of nicotine dependence
CPT/HCPCS: 36415; 74177; 80053; 81001; 83605; 83735; 85025; 85610; 85730; 86140; 87040; 87493; 96361; 96365; 96367; 96375; 99285; A9270; J1335; J1885; J2185; J2543; J7030; J7120; Q9967

== ENCOUNTER 2025-02-18 11:48 | Outpatient (CLI) | payer BC, SELFPAY ==
[2025-02-18 12:10] LABS: Hematocrit 34.6 % (37.0-47.0); Hemoglobin 11.1 g/dL (12.0-15.0); Immature Granulocyte Percent A 0.4 % (0-0.5); Lymphocytes Absolute Auto 2.20 K/mm3 (0.9-3.2); Mean Corpuscular HGB Conc 32.1 g/dl (32-36); Mean Corpuscular Hemoglobin 29.1 pg (26-34); Mean Corpuscular Volume 90.8 fl (80-100); Nucleated Red Blood Cells Absolute Auto 0.000 K/mm3 (0.0-0.012); Nucleated Red Blood Cells Perc 0.0 % (0.0-0.2); Platelet Count Result 426 k/mm3 (150-375); Red Blood Count 3.81 M/mm3 (4.2-5.4); White Blood Count 8.0 K/mm3 (4.5-10.0)
[2025-02-18 12:17] LABS: Add Urine Microscopic? YES; Appearance Urine Clear (Clear); Glucose Urine UA Negative (Negative); Leukocyte Esterase Ur 1+ LEU/UL (Negative); Nitrate Urine Positive (Negative); Specific Grav Ur 1.021 (1.001-1.035)
[2025-02-18 12:29] LABS: Alanine Aminotransferase 46 U/L (6-35); Albumin Level 4.2 g/dL (3.5-5.1); Alkaline Phosphatase 83 U/L (38-126); Anion Gap 10 mmol/L (4-12); Aspartate Amino Transferase 33 U/L (14-36); Bilirubin,Total 0.5 mg/dL (0.2-1.3); Blood Urea Nitrogen 32 mg/dL (7-17); Calcium 9.9 mg/dL (8.4-10.2); Carbon Dioxide 30 mmol/L (22-30); Chloride 99 mmol/L (98-107); Estimated Glomerular Filt Rate > 60; Glucose 124 mg/dL (65-110); Potassium 4.2 mmol/L (3.4-5.0); Sodium 139 mmol/L (137-145); Total Protein 8.1 g/dL (6.3-8.2)
== END 2025-02-18 11:49 | disposition home or self-care (01) ==
LOC: ANHLAB 11:51
PROVIDERS: PCP Internal Medicine; Visit Provider Internal Medicine
DX: R30.0 Dysuria (principal); R78.81 Bacteremia; I10 Essential (primary) hypertension; E86.0 Dehydration
CPT/HCPCS: 36415; 80053; 81001; 85025